=== PATIENT | male | born 1940 | race Two or more races ===

== ENCOUNTER 2019-01-20 06:18 | Inpatient (IN) | payer MEDICARE ==
--- NOTE | 2019-01-20 06:27 | ED ---
SOB HPI - General Chief Complaint: Shortness of Breath Stated Complaint: SOB Time Seen by Provider: 01/20/19 06:26 Source: patient Mode of arrival: ambulatory - History of Present Illness Initial Comments: Brian Hyatt is an 78-year-old gentleman with a history of congestive heart failure who recently had a right hip replacement with Dr. Nevarez. Patient reports that over the past couple of weeks he's noticed progressively worsening swelling of his lower extremities and worsening shortness of breath. Patient that his lower extremity edema was due to the recent history however when the left leg became swollen is the right he thought it may be related to something else. Patient reports that last night he was unable to sleep because he cannot lie flat at all which prompted him to come to the ER this morning for further evaluation. Patient denies any fevers chills, nausea, vomiting or sick contacts. He denies any cough. - Related Data Allergies Allergy/AdvReac Type Severity Reaction Status Date / Time No Known Allergies Allergy Verified 01/20/19 06:31 Review of Systems ROS Statement: Those systems with pertinent positive or pertinent negative responses have been documented in the HPI. ROS Other: All systems not noted in ROS Statement are negative. Past Medical History Past Medical History: Heart Failure, Hyperlipidemia, Hypertension Past Surgical History: Appendectomy, Cholecystectomy, Prostate Surgery Smoking Status: Former smoker Past Alcohol Use History: None Reported, Occasional Past Drug Use History: None Reported General Exam - General Exam Comments Initial Comments: Physical Exam GENERAL: Chronically ill appearing Appears pale HENT: Normocephalic, Atraumatic. Facial scars due to previous skin cancer EYES: PERRL, EOMI PULMONARY: Rales CARDIOVASCULAR: Bradycardic, regular JVD 3+ pitting edema bilateral lower extremities ABDOMEN: Hepatomegally, Soft and nontender with normal bowel sounds. SKIN: Skin is pale Senile purpura : Deferred NEUROLOGIC: Patient is alert and oriented x3. Moving all extremities spontaneously MUSCULOSKELETAL: Healing right hip Edema PSYCHIATRIC: Normal psychiatric evaluation Course Vital Signs 01/20/19 01/20/19 01/20/19 06:20 06:29 06:33 Temperature 97.5 F L Pulse Rate 52 L 57 L Respiratory 16 24 24 Rate Blood Pressure 178/91 177/101 O2 Sat by Pulse 97 94 L Oximetry Medical Decision Making - Medical Decision Making Patient was seen and evaluated, history was obtained from the patient and at bedside History and physical exam are concerning for congestive heart failure as the patient appears grossly fluid overloaded has bilateral lower extremity edema JVD and orthopnea Labs and imaging were ordered Chest x-ray with no pleural effusions but some pulmonary vascular congestion Labs with anemia this is likely related to the recent surgery Elevated kidney function no previous are available for comparison though the patient did note that he was changed from Lasix to Bumex orally due to kidney disease Troponin is very minimally elevated, BNP greater than 25,000 Patient care was discussed with admitting physician Dr. Cortés who agrees with plan for admission for congestive heart failure exacerbation, consult to cardiology. - Lab Data Result diagrams: 01/20/19 06:44 01/20/19 06:44 Lab Results 01/20/19 01/20/19 01/20/19 Range/Units 06:44 06:44 06:44 WBC 9.6 (3.8-10.6) k/uL RBC 3.73 L (4.30-5.90) m/uL Hgb 9.2 L (13.0-17.5) gm/dL Hct 30.0 L (39.0-53.0) % MCV 80.6 (80.0-100.0) fL MCH 24.7 L (25.0-35.0) pg MCHC 30.6 L (31.0-37.0) g/dL RDW 17.9 H (11.5-15.5) % Plt Count 270 (150-450) k/uL Neutrophils % 85 % Lymphocytes % 10 % Monocytes % 3 % Eosinophils % 0 % Basophils % 1 % Neutrophils # 8.1 H (1.3-7.7) k/uL Lymphocytes # 0.9 L (1.0-4.8) k/uL Monocytes # 0.3 (0-1.0) k/uL Eosinophils # 0.0 (0-0.7) k/uL Basophils # 0.1 (0-0.2) k/uL Hypochromasia Slight Anisocytosis Slight Microcytosis Slight PT (9.0-12.0) sec INR (<1.2) APTT (22.0-30.0) sec Sodium 142 (137-145) mmol/L Potassium 4.4 (3.5-5.1) mmol/L Chloride 110 H (98-107) mmol/L Carbon Dioxide 20 L (22-30) mmol/L Anion Gap 12 mmol/L BUN 37 H (9-20) mg/dL Creatinine 2.37 H (0.66-1.25) mg/dL Est GFR (CKD-EPI)AfAm 29 (>60 ml/min/1.73 sqM) Est GFR (CKD-EPI)NonAf 25 (>60 ml/min/1.73 sqM) Glucose 139 H (74-99) mg/dL Calcium 9.4 (8.4-10.2) mg/dL Magnesium 2.1 (1.6-2.3) mg/dL Total Bilirubin 0.6 (0.2-1.3) mg/dL AST 19 (17-59) U/L ALT 14 L (21-72) U/L Alkaline Phosphatase 123 (38-126) U/L Troponin I (0.000-0.034) ng/mL NT-Pro-B Natriuret Pep 92045 pg/mL Total Protein 6.6 (6.3-8.2) g/dL Albumin 3.6 (3.5-5.0) g/dL 01/20/19 01/20/19 Range/Units 06:44 06:44 WBC (3.8-10.6) k/uL RBC (4.30-5.90) m/uL Hgb (13.0-17.5) gm/dL Hct (39.0-53.0) % MCV (80.0-100.0) fL MCH (25.0-35.0) pg MCHC (31.0-37.0) g/dL RDW (11.5-15.5) % Plt Count (150-450) k/uL Neutrophils % % Lymphocytes % % Monocytes % % Eosinophils % % Basophils % % Neutrophils # (1.3-7.7) k/uL Lymphocytes # (1.0-4.8) k/uL Monocytes # (0-1.0) k/uL Eosinophils # (0-0.7) k/uL Basophils # (0-0.2) k/uL Hypochromasia Anisocytosis Microcytosis PT 10.9 (9.0-12.0) sec INR 1.0 (<1.2) APTT 24.5 (22.0-30.0) sec Sodium (137-145) mmol/L Potassium (3.5-5.1) mmol/L Chloride (98-107) mmol/L Carbon Dioxide (22-30) mmol/L Anion Gap mmol/L BUN (9-20) mg/dL Creatinine (0.66-1.25) mg/dL Est GFR (CKD-EPI)AfAm (>60 ml/min/1.73 sqM) Est GFR (CKD-EPI)NonAf (>60 ml/min/1.73 sqM) Glucose (74-99) mg/dL Calcium (8.4-10.2) mg/dL Magnesium (1.6-2.3) mg/dL Total Bilirubin (0.2-1.3) mg/dL AST (17-59) U/L ALT (21-72) U/L Alkaline Phosphatase (38-126) U/L Troponin I 0.052 H* (0.000-0.034) ng/mL NT-Pro-B Natriuret Pep pg/mL Total Protein (6.3-8.2) g/dL Albumin (3.5-5.0) g/dL Disposition Clinical Impression: Congestive heart failure, Anemia, Kidney disease Disposition: ADMITTED IP TO THIS [facility] Condition: Stable
[2019-01-20 07:09] LABS: Anisocytosis Slight; Basophils # (A) 0.1 k/uL (0-0.2); Basophils % (A) 1 %; Eosinophils % (A) 0 %; HGB 9.2 gm/dL (13.0-17.5); Hypochromasia Slight; Lymphocytes # (A) 0.9 k/uL (1.0-4.8); Lymphocytes % (A) 10 %; MCH 24.7 pg (25.0-35.0); MCHC 30.6 g/dL (31.0-37.0); MCV 80.6 fL (80.0-100.0); Microcytosis Slight; Monocytes # (A) 0.3 k/uL (0-1.0); Monocytes % (A) 3 %; Neutrophils # (A) 8.1 k/uL (1.3-7.7); Neutrophils % (A) 85 %; Partial Thromboplastin Time 24.5 sec (22.0-30.0); Platelet Count 270 k/uL (150-450); Prothrombin Time 10.9 sec (9.0-12.0); RBC 3.73 m/uL (4.30-5.90); RDW 17.9 % (11.5-15.5); WBC 9.6 k/uL (3.8-10.6)
--- NOTE | 2019-01-20 07:10 | XR ---
EXAMINATION TYPE: XR chest 2V DATE OF EXAM: 01/20/2019 COMPARISON: NONE HISTORY: Chest pain TECHNIQUE: Frontal and lateral views of the chest are obtained. FINDINGS: There are overlying cardiac leads. The aorta is dense and ectatic. Suspect coronary artery calcifications are present. Heart may be enlarged although patient is rotated. No evident pneumothora x or pleural effusion. Patchy subsegmental atelectatic changes or scarring suspected at the bases. IMPRESSION: Cardiomegaly, coronary artery disease. Probable subsegmental basilar atelectatic changes or scarring, pneumonia felt to be less likely. Consider follow-up. Rotated exam. Additional findings above.
[2019-01-20 07:20] LABS: Albumin 3.6 g/dL (3.5-5.0); Calcium 9.4 mg/dL (8.4-10.2); Magnesium 2.1 mg/dL (1.6-2.3); Potassium 4.4 mmol/L (3.5-5.1); Total Bilirubin 0.6 mg/dL (0.2-1.3); Total Protein 6.6 g/dL (6.3-8.2)
[2019-01-20] MEDS: FUROSEMIDE 10 MG/ML 4 ML VIAL IV SCH ×3 (08:00→22:56)
[2019-01-20] MEDS ORDERED: CARVEDILOL 12.5 MG TAB PO SCH (09:45)
[2019-01-20] MEDS ORDERED: NIFEdipine 10 MG CAP PO SCH (09:45)
[2019-01-20] MEDS ORDERED: LOSARTAN 50 MG TAB PO SCH (10:00)
[2019-01-20] MEDS ORDERED: TORSEMIDE 10 MG PO SCH (10:00)
[2019-01-20] MEDS: DOXAZOSIN 2 MG TAB PO SCH ×2 (10:37→21:17)
[2019-01-20] MEDS: FERROUS SULFATE 325 MG TAB PO SCH ×2 (10:38→20:21)
[2019-01-20] MEDS: CALCIUM POLYCARBOPHIL 625 MG TAB PO SCH (10:39)
[2019-01-20] MEDS: predniSONE 5 MG TAB PO SCH (10:39)
[2019-01-20] MEDS: MULTIVITAMINS, THERA 1 EACH TAB PO SCH (10:39)
[2019-01-20] MEDS: CHOLECALCIFEROL 1,000 UNIT TAB PO SCH (10:39)
[2019-01-20] MEDS: LACTOBACILLUS ACIDOPH & BULGAR 1 EACH PACKET PO SCH (10:41)
--- NOTE | 2019-01-20 11:12 | ECHOF ---
Referral Reason:CHF MEASUREMENTS -------- HEIGHT: 182.9 cm WEIGHT: 81.6 kg BP: 177/101 RVIDd: 4.4 cm (< 3.3) IVSd: 1.6 cm (0.6 - 1.1) LVIDd: 5.1 cm (3.9 - 5.3) LVPWd: 2.1 cm (0.6 - 1.1) IVSs: 2.3 cm LVIDs: 4.2 cm LVPWs: 1.9 cm LAESV Index (A-L): 47.58 ml/m Ao Diam: 2.6 cm (2.0 - 3.7) AV Cusp: 1.4 cm (1.5 - 2.6) LA Diam: 3.7 cm (2.7 - 3.8) MV EXCURSION: 22.495 mm (> 18.000) MV EF SLOPE: 148 mm/s (70 - 150) EPSS: 1.1 cm AV maxP.96 mmHg AV meanP.03 mmHg RAP: 20.00 mmHg RVSP: 105.34 mmHg FINDINGS -------- Resting bradycardia (HR<60bpm). This was a technically adequate study. The left ventricular size is normal. There is moderate concentric left ventricular hypertrophy. O verall left ventricular systolic function is moderately impaired with, an EF between 35 - 40 %. Lef t ventricular fillimg pressure cannot be estimated due to severe mitral regurgitation. The right ventricle is moderate to severely enlarged. LA is severely dilated >40 ml/m2 RA appears enlarged. Interatrial and interventricular septum intact. There is no evidence of aortic regurgitation. There is moderate aortic stenosis present. Peak/rafael n gradient across the Aortic Valve is 36.96mmHg / 18.03mmHg. Moderate mitral annular calcification present. Severe mitral regurgitation is present. Moderate tricuspid regurgitation present. There is severe pulmonary hypertension. The right ventr icular systolic pressure, as measured by Doppler, is 105.34mmHg. Trace/mild (physiologic) pulmonic regurgitation. The aortic root size is normal. The inferior vena cava is dilated with no significant inspiratory collapse which is consistent estima lindsay right atrial pressure of >20 mmHg. There is no pericardial effusion. CONCLUSIONS -------- 1. Resting bradycardia (HR<60bpm). 2. This was a technically adequate study. 3. The left ventricular size is normal. 4. There is moderate concentric left ventricular hypertrophy. 5. Overall left ventricular systolic function is moderately impaired with, an EF between 35 - 40 %. 6. Left ventricular fillimg pressure cannot be estimated due to severe mitral regurgitation. 7. The right ventricle is moderate to severely enlarged. 8. LA is severely dilated >40 ml/m2 9. RA appears enlarged. 10. Interatrial and interventricular septum intact. 11. There is no evidence of aortic regurgitation. 12. There is moderate aortic stenosis present. 13. Peak/mean gradient across the Aortic Valve is 36.96mmHg / 18.03mmHg. 14. Moderate mitral annular calcification present. 15. Severe mitral regurgitation is present. 16. Moderate tricuspid regurgitation present. 17. There is severe pulmonary hypertension. 18. The right ventricular systolic pressure, as measured by Doppler, is 105.34mmHg. 19. Trace/mild (physiologic) pulmonic regurgitation. 20. The aortic root size is normal. 21. The inferior vena cava is dilated with no significant inspiratory collapse which is consistent es timated right atrial pressure of >20 mmHg. 22. There is no pericardial effusion. POST OFFICE CLERK: Sara Gifford RDCS
[2019-01-20] MEDS: CALCIUM CARBONATE 500 MG CHEWABLE PO SCH (12:30)
[2019-01-20] MEDS ORDERED: ALBUTEROL NEBULIZED 2.5 MG/3 ML INHALATION PRN (13:16)
[2019-01-20] MEDS: ABIRATERONE ACETATE 1000 MG PO SCH (13:23)
[2019-01-20 14:14] VITALS: BMI 24.4
--- NOTE | 2019-01-20 14:30 | P.HPIM ---
History of Present Illness 78-year-old pleasant gentleman with known history of congestive heart failure patient present ejection fraction is a 35-40% came in with compensative soreness of breath orthopnea paroxysmal nocturnal dyspnea chest x-ray showed mild b ilateral pleural effusion no pulmonary edema patient does have pedal edema increased weight gain. Does have elevated JVD extending up to the years. She doesn't have any fever chills does have cough with clear sputum production. Patient does have chronic kidney disease stage IV as per the patient although I do not have any baseline creatinine available. Review of Systems REVIEW OF SYSTEMS: CONSTITUTIONAL: No fever, no malaise, no fatigue. HEENT: No recent visual problems or hearing problems. Denied any sore throat. CARDIOVASCULAR: No chest pain, no palpitations, no syncope. PULMONARY: no hemoptysis. GASTROINTESTINAL: No diarrhea, no nausea, no vomiting, no abdominal pain. NEUROLOGICAL: No headaches, no weakness, no numbness. HEMATOLOGICAL: Denies any bleeding or petechiae. GENITOURINARY: Denies any burning micturition, frequency, or urgency. MUSCULOSKELETAL/RHEUMATOLOGICAL: Denies any joint pain, swelling, or any muscle pain. ENDOCRINE: Denies any polyuria or polydipsia. The rest of the 14-point review of systems is negative. Past Medical History Past Medical History: Atrial Fibrillation, Cancer, Heart Failure, Hyperlipidemia, Hypertension, Osteoarthritis (OA), Renal Disease Additional Past Medical History / Comment(s): Prostate cancer with surgery and hormone based oral chemotherapy, bladder cancer with surgery/instillations, skin cancer with removals, leaky heart valve, CKD stage IV, arthritis in multiple joints, constipation, C-Diff in 06/18/18. History of Any Multi-Drug Resistant Organisms: None Reported Past Surgical History: Appendectomy, Cholecystectomy, Prostate Surgery Additional Past Surgical History / Comment(s): Total R hip 3 weeks ago, cysto with bladder tumor resections, prostatectomy, skin cancer removals-mostly basal cell, colonoscopy Past Anesthesia/Blood Transfusion Reactions: No Reported Reaction Smoking Status: Former smoker - Past Family History Mother Family Medical History: Dementia Father Family Medical History: Cancer Additional Family Medical History / Comment(s): Prostate cancer. Medications and Allergies Home Medications Medication Instructions Recorded Confirmed Type Abiraterone Acetate [Zytiga] 1,000 mg PO DAILY 01/20/19 01/20/19 History Albuterol Inhaler [Ventolin Hfa 1 - 2 puff INHALATION RT-Q6H PRN 01/20/19 01/20/19 History Inhaler] Calcium Carbonate [Calcium] 600 mg PO DAILY 01/20/19 01/20/19 History Calcium Polycarbophil [Fibercon] 625 mg PO DAILY 01/20/19 01/20/19 History Carvedilol [Coreg] 25 mg PO BID 01/20/19 01/20/19 History Cholecalciferol [Vitamin D3 (25 1,000 units PO DAILY 01/20/19 01/20/19 History Mcg = 1000 Iu)] Doxazosin [Cardura] 2 mg PO BID 01/20/19 01/20/19 History Ferrous Sulfate [Feosol] 325 mg PO BID 01/20/19 01/20/19 History L.acidoph,Paracasei, B.lactis 1 cap PO DAILY 01/20/19 01/20/19 History [Probiotic] Losartan Potassium 100 mg PO DAILY 01/20/19 01/20/19 History Multivitamins, Thera [Multivitamin 1 tab PO DAILY 01/20/19 01/20/19 History (formulary)] NIFEdipine [NIFEdipine ER] 30 mg PO DAILY 01/20/19 01/20/19 History Simvastatin [Zocor] 40 mg PO HS 01/20/19 01/20/19 History Torsemide 10 mg PO DAILY 01/20/19 01/20/19 History predniSONE 5 mg PO DAILY 01/20/19 01/20/19 History Allergies Allergy/AdvReac Type Severity Reaction Status Date / Time No Known Allergies Allergy Verified 01/20/19 08:01 Physical Exam Vitals: Vital Signs Temp Pulse Pulse Resp BP BP Pulse Ox 01/20/19 12:00 97.7 F 41 L 20 127/73 93 L 01/20/19 11:48 97.6 F 47 L 18 118/65 95 01/20/19 11:15 52 L 175/79 01/20/19 10:15 52 L 181/93 97 01/20/19 09:15 64 191/104 01/20/19 08:45 54 L 184/102 93 L 01/20/19 08:30 184/102 01/20/19 08:15 46 L 184/102 95 01/20/19 08:04 54 L 184/102 95 01/20/19 08:00 53 L 18 184/102 95 01/20/19 07:30 180/98 01/20/19 06:33 57 L 24 177/101 94 L 01/20/19 06:29 24 01/20/19 06:20 97.5 F L 52 L 16 178/91 97 Intake and Output 01/19/19 01/20/19 01/20/19 22:59 06:59 14:59 Intake Total 240 Balance 240 Intake: Oral 240 Other: Weight 81.647 kg 81.647 kg PHYSICAL EXAMINATION: GENERAL: The patient is alert and oriented x3, not in any acute distress. Well developed, well nourished. HEENT: Pupils are round and equally reacting to light. EOMI. No scleral icterus. No conjunctival pallor. Normocephalic, atraumatic. No pharyngeal erythema. No thyromegaly. CARDIOVASCULAR: S1 and S2 present. No murmurs, rubs, or gallops. Elevated JVD as mentioned above PULMONARY: Chest is clear to auscultation, no wheezing or crackles. ABDOMEN: Soft, nontender, nondistended, normoactive bowel sounds. No palpable organomegaly. MUSCULOSKELETAL: No joint swelling or deformity. EXTREMITIES: No cyanosis, clubbing, or lateral 2+ pitting pedal and when extending up to and above midshin area patient does have some chronic venous stasis dermatosis and venous insufficiency as well NEUROLOGICAL: Gross neurological examination did not reveal any focal deficits. SKIN: No rashes. Results CBC & Chem 7: 01/20/19 06:44 01/20/19 06:44 Labs: Abnormal Lab Results - Last 24 Hours (Table) 01/20/19 01/20/19 01/20/19 Range/Units 06:44 06:44 06:44 RBC 3.73 L (4.30-5.90) m/uL Hgb 9.2 L (13.0-17.5) gm/dL Hct 30.0 L (39.0-53.0) % MCH 24.7 L (25.0-35.0) pg MCHC 30.6 L (31.0-37.0) g/dL RDW 17.9 H (11.5-15.5) % Neutrophils # 8.1 H (1.3-7.7) k/uL Lymphocytes # 0.9 L (1.0-4.8) k/uL Chloride 110 H (98-107) mmol/L Carbon Dioxide 20 L (22-30) mmol/L BUN 37 H (9-20) mg/dL Creatinine 2.37 H (0.66-1.25) mg/dL Glucose 139 H (74-99) mg/dL ALT 14 L (21-72) U/L Troponin I 0.052 H* (0.000-0.034) ng/mL Thrombosis Risk Factor Assmnt - Choose All That Apply Any of the Below Risk Factors Present?: Yes Each Factor Represents 1 point: Heart failure (<1month) Other Risk Factors: Yes Each Risk Factor Represents 2 Points: Malignancy Each Risk Factor Represents 3 Points: Age 75 years or older Other congenital or acquired thrombophilia - If yes, enter type in comment: No Thrombosis Risk Factor Assessment Total Risk Factor Score: 6 Thrombosis Risk Factor Assessment Level: High Risk Assessment and Plan Plan: -Congestive heart failure chronic systolic dysfunction with acute exacerbation patient will be continued on now 40 every 8 hourly Lasix may need a higher dose of Lasix because his serum creatinine is 2. and patient does have stage IV chronic kidney disease. Losartan can be continued as his kidney dysfunction is chronic. Strict I's and O's, cardiology was consult and -Mildly elevated troponin will repeat 2 more trouble troponins patient doesn't have any chest pain EKG is not consistent with the any acute coronary event probably secondary to chronic kidney disease and congestive heart failure -Chronic kidney disease stage IV secondary to hypertensive nephrosclerosis I do not have his baseline creatinine as per the patient his kidney disease is stage IV -Atrial fibrillation presently bradycardic will hold off on beta alexis patient is not on anticoagulation patient probably had proximal A. fib a little cardiology evaluated and decide about anticoagulation -Benign prostatic hypertrophic -Hyperlipidemia DVT prophylaxis with subcutaneous heparin will not require pharmacologic GI prophylaxis
[2019-01-20] MEDS: HEPARIN SODIUM,PORCINE 5,000 UNIT/ML 1 ML VIAL SQ SCH (20:21)
[2019-01-20] MEDS: ATORVASTATIN 20 MG TAB PO SCH (20:21)
[2019-01-20] MEDS: MELATONIN 5 MG TABLET PO SCH (22:56)
[2019-01-21 06:20] LABS: Anisocytosis Slight; Basophils # (A) 0.1 k/uL (0-0.2); Basophils % (A) 2 %; Eosinophils # (A) 0.5 k/uL (0-0.7); Eosinophils % (A) 5 %; HCT 28.1 % (39.0-53.0); HGB 8.8 gm/dL (13.0-17.5); Hypochromasia Marked; Lymphocytes # (A) 1.5 k/uL (1.0-4.8); Lymphocytes % (A) 15 %; MCH 25.6 pg (25.0-35.0); MCHC 31.5 g/dL (31.0-37.0); MCV 81.1 fL (80.0-100.0); Mean Platelet Volume 7.6; Monocytes # (A) 0.5 k/uL (0-1.0); Monocytes % (A) 5 %; Neutrophils # (A) 6.8 k/uL (1.3-7.7); Neutrophils % (A) 72 %; Platelet Count 219 k/uL (150-450); RBC 3.46 m/uL (4.30-5.90); RDW 17.9 % (11.5-15.5); WBC 9.5 k/uL (3.8-10.6)
[2019-01-21 06:32] LABS: Calcium 9.3 mg/dL (8.4-10.2); Potassium 3.8 mmol/L (3.5-5.1)
[2019-01-21 06:37] LABS: Glucose,Whole Blood 123 mg/dL (75-99)
[2019-01-21] MEDS: DOXAZOSIN 2 MG TAB PO SCH ×2 (06:52→20:30)
--- NOTE | 2019-01-21 08:49 | P.CRDCN ---
History of Present Illness Consult date: 01/21/19 Requesting physician: Kelly Cortés Consult reason: congestive heart failure Chief complaint: Shortness of breath and bilateral leg swelling History of present illness: This is a pleasant 78-year-old gentleman with history of hypertension diabetes, hyperlipidemia, prior congestive heart failure, prostate cancer for which he is on oral chemo, patient recently underwent a right hip surgery by Dr. Nevarez. Over the past couple of weeks, patient states he's been progressively more short of breath, and over the past one and amount of bilateral peripheral edema. Positive orthopnea and PND. He does state that he has been told in the past to have had congestive cardiac failure, he states he was also told in the past that he had a weak heart muscle. Patient has recently moved to this area, patient has recently moved to this area, he was scheduled tomorrow as an outpatient over at cardiology. Chest x-ray shows cardiomegaly, coronary artery disease, subsegmental basilar atelectatic changes. EKG shows a sinus bradycardia with evidence of LVH strain pattern. Blood pressure on arrival 178/90 with a heart rate in the 50s, 97% on room air. Blood pressure this morning 192/96 in the left arm, 196/92 in the right arm, heart rate in the 60s, 96% on room air. White blood cell count 9.5, hemoglobin on arrival 9.2, 8.8 this morning, platelet count 219. Sodium 142, potassium 3.8, BUN 43 and creatinine 2.3, initial troponin 0.052, BNP level 25,100. The patient was initiated on IV Lasix on arrival here, he does state that he's been putting out adequate amounts of urine through the night last night. Echo cardiac gram with Doppler study was performed which revealed an ejection fraction of 35-40%, moderate aortic stenosis, severe mitral regurgitation. At the time of my e xamination this morning, patient does still feel short of breath, continues to have orthopnea and peripheral edema. Past Medical History Past Medical History: Atrial Fibrillation, Cancer, Heart Failure, Hyperlipidemia, Hypertension, Osteoarthritis (OA), Renal Disease Additional Past Medical History / Comment(s): Prostate cancer with surgery and hormone based oral chemotherapy, bladder cancer with surgery/instillations, skin cancer with removals, leaky heart valve, CKD stage IV, arthritis in multiple joints, constipation, C-Diff in 06/18/18. History of Any Multi-Drug Resistant Organisms: None Reported Past Surgical History: Appendectomy, Cholecystectomy, Prostate Surgery Additional Past Surgical History / Comment(s): Total R hip 3 weeks ago, cysto wi th bladder tumor resections, prostatectomy, skin cancer removals-mostly basal cell, colonoscopy Past Anesthesia/Blood Transfusion Reactions: No Reported Reaction Smoking Status: Former smoker - Past Family History Mother Family Medical History: Dementia Father Family Medical History: Cancer Additional Family Medical History / Comment(s): Prostate cancer. Medications and Allergies Home Medications Medication Instructions Recorded Confirmed Type Abiraterone Acetate [Zytiga] 1,000 mg PO DAILY 01/20/19 01/20/19 History Albuterol Inhaler [Ventolin Hfa 1 - 2 puff INHALATION RT-Q6H PRN 01/20/19 01/20/19 History Inhaler] Calcium Carbonate [Calcium] 600 mg PO DAILY 01/20/19 01/20/19 History Calcium Polycarbophil [Fibercon] 625 mg PO DAILY 01/20/19 01/20/19 History Carvedilol [Coreg] 25 mg PO BID 01/20/19 01/20/19 History Cholecalciferol [Vitamin D3 (25 1,000 units PO DAILY 01/20/19 01/20/19 History Mcg = 1000 Iu)] Doxazosin [Cardura] 2 mg PO BID 01/20/19 01/20/19 History Ferrous Sulfate [Feosol] 325 mg PO BID 01/20/19 01/20/19 History L.acidoph,Paracasei, B.lactis 1 cap PO DAILY 01/20/19 01/20/19 History [Probiotic] Losartan Potassium 100 mg PO DAILY 01/20/19 01/20/19 History Multivitamins, Thera [Multivitamin 1 tab PO DAILY 01/20/19 01/20/19 History (formulary)] NIFEdipine [NIFEdipine ER] 30 mg PO DAILY 01/20/19 01/20/19 History Simvastatin [Zocor] 40 mg PO HS 01/20/19 01/20/19 History Torsemide 10 mg PO DAILY 01/20/19 01/20/19 History predniSONE 5 mg PO DAILY 01/20/19 01/20/19 History Allergies Allergy/AdvReac Type Severity Reaction Status Date / Time No Known Allergies Allergy Verified 01/20/19 08:01 Physical Exam Vitals: Vital Signs Temp Pulse Pulse Pulse Resp BP BP 01/21/19 03:57 64 17 01/21/19 03:53 64 17 193/96 01/20/19 23:40 54 L 17 01/20/19 23:38 53 L 17 172/88 01/20/19 20:00 98.1 F 54 L 54 L 17 164/86 01/20/19 16:10 97.7 F 54 L 54 L 18 146/70 01/20/19 12:00 97.7 F 41 L 20 127/73 01/20/19 11:48 97.6 F 47 L 18 118/65 01/20/19 11:15 52 L 175/79 01/20/19 10:15 52 L 181/93 01/20/19 09:15 64 191/104 01/20/19 08:45 54 L 184/102 BP Pulse Ox 01/21/19 03:57 01/21/19 03:53 195/93 96 01/20/19 23:40 01/20/19 23:38 96 01/20/19 20:00 95 01/20/19 16:10 94 L 01/20/19 12:00 93 L 01/20/19 11:48 95 01/20/19 11:15 01/20/19 10:15 97 01/20/19 09:15 01/20/19 08:45 93 L Intake and Output 01/20/19 01/21/19 01/21/19 22:59 06:59 14:59 Intake Total 850 500 240 Output Total 200 550 Balance 850 300 -310 Intake: IV 10 Invasive Line 1 10 Oral 840 500 240 Output: Urine 200 550 Other: Voiding Method Toilet Toilet # Voids 1 3 1 Weight 81.8 kg PHYSICAL EXAMINATION: GENERAL: 78-year-old gentleman in no acute distress at the time of my examination HEENT: Head is atraumatic, normocephalic. Pupils equal, round. Sclera anicteric. Conjunctiva are clear. Mucous membranes of the mouth are moist. Neck is supple. There is elevated jugular venous pressure. No carotid bruit is heard. HEART EXAMINATION: Heart S1 S2 1 systolic ejection murmur is heard CHEST EXAMINATION: Lungs reveal diminished air entry to bilateral bases ABDOMEN: Soft, nontender. Bowel sounds are heard. No organomegaly noted. EXTREMITIES:[ 2+ peripheral pulses with 2+ evidence of peripheral edema NEUROLOGIC patient is awake, alert and oriented 3 . . Results 01/21/19 06:06 01/21/19 06:06 CBC 01/21/19 Range/Units 06:06 WBC 9.5 (3.8-10.6) k/uL RBC 3.46 L (4.30-5.90) m/uL Hgb 8.8 L (13.0-17.5) gm/dL Hct 28.1 L (39.0-53.0) % Plt Count 219 (150-450) k/uL Comprehensive Metabolic Panel 01/21/19 Range/Units 06:06 Sodium 142 (137-145) mmol/L Potassium 3.8 (3.5-5.1) mmol/L Chloride 107 (98-107) mmol/L Carbon Dioxide 27 (22-30) mmol/L BUN 43 H (9-20) mg/dL Creatinine 2.33 H (0.66-1.25) mg/dL Glucose 113 H (74-99) mg/dL Calcium 9.3 (8.4-10.2) mg/dL Current Medications Generic Name Dose Route Start Last Admin Trade Name Freq PRN Reason Stop Dose Admin Albuterol Sulfate 2.5 mg 01/20/19 13:16 Ventolin Nebulized INHALATION RT-Q6H PRN Shortness Of Breath Atorvastatin Calcium 20 mg 01/20/19 21:00 01/20/19 20:21 Lipitor PO 20 mg HS ROBYN Administration Calcium Carbonate/Glycine 500 mg 01/20/19 12:00 01/20/19 12:30 Tums PO 500 mg 1200 ROBYN Administration Calcium Polycarbophil 625 mg 01/20/19 10:00 01/20/19 10:39 Fibercon PO 625 mg DAILY ROBYN Administration Cholecalciferol 1,000 unit 01/20/19 10:00 01/20/19 10:39 Vitamin D3 (25 Mcg = 1000 Iu) PO 1,000 unit DAILY ROBYN Administration Doxazosin Mesylate 2 mg 01/20/19 09:45 01/21/19 06:52 Cardura PO 2 mg BID ROBYN Administration Ferrous Sulfate 325 mg 01/20/19 10:00 01/20/19 20:21 Feosol PO 325 mg BID ROBYN Administration Furosemide 40 mg 01/20/19 08:00 01/20/19 22:56 Lasix IV 40 mg Q8H ROBYN Administration Heparin Sodium (Porcine) 5,000 unit 01/20/19 21:00 01/20/19 20:21 Heparin SQ 5,000 unit Q12HR ROBYN Administration Lactobacillus Acidoph/Bulgaricus 1 each 01/20/19 10:00 01/20/19 10:41 Lactinex PO 1 each DAILY ROBYN Administration Losartan Potassium 100 mg 01/21/19 09:00 Cozaar PO DAILY ROBYN Melatonin 5 mg 01/20/19 23:00 01/20/19 22:56 Melatonin PO 5 mg HS ROBYN Administration Multivitamins 1 each 01/20/19 10:00 01/20/19 10:39 Theragran PO 1 each DAILY ROBYN Administration Nifedipine 30 mg 01/21/19 09:00 Procardia Xl PO DAILY ROBYN Patient's Own ( 1,000 mg 01/20/19 10:00 01/20/19 13:23 Abiraterone Acetate PO Not Given [Zytiga] 1,000 Mg) DAILY ROBYN Prednisone 5 mg 01/20/19 10:00 01/20/19 10:39 PO 5 mg DAILY ROBYN Administration Intake and Output 01/20/19 01/21/19 01/21/19 22:59 06:59 14:59 Intake Total 850 500 240 Output Total 200 550 Balance 850 300 -310 Intake: IV 10 Invasive Line 1 10 Oral 840 500 240 Output: Urine 200 550 Other: Voiding Method Toilet Toilet # Voids 1 3 1 Weight 81.8 kg 01/21/19 06:06 01/21/19 06:06 EKG Interpretations (text) EKG on arrival showed a sinus bradycardia with evidence of LVH strain pattern Assessment and Plan Plan: Assessment and plan #1 systolic congestive heart failure acute on chronic #2 accelerated hypertension #3 hyperlipidemia #4 diabetes #5 recent right hip surgery #6 prostate cancer, currently on oral chemotherapy #7 nonischemic cardiomyopathy with a documented ejection fraction of 35-40%, moderate aortic stenosis and severe mitral regurgitation #8 acute on chronic renal failure Plan We'll recommend to continue patient on IV Lasix 40 mg every 8 hourly, monitoring intake and output along with daily weights and daily lytes BUN and creatinine. We will resume the patient's Coreg which she was taking at home, increasing the dose to 50 mg twice a day more optimal blood pressure control, heart rate this morning is in the 60s, continue losartan, discontinue the Procardia secondary to cardiomyopathy. Further recommendations to follow. DNP note has been reviewed, I agree with a documented findings and plan of care. Patient was seen and examined.
[2019-01-21] MEDS: LACTOBACILLUS ACIDOPH & BULGAR 1 EACH PACKET PO SCH (08:59)
[2019-01-21] MEDS: CALCIUM POLYCARBOPHIL 625 MG TAB PO SCH (08:59)
[2019-01-21] MEDS: FUROSEMIDE 10 MG/ML 4 ML VIAL IV SCH ×3 (08:59→23:33)
[2019-01-21] MEDS: LOSARTAN 50 MG TAB PO SCH (08:59)
[2019-01-21] MEDS: HEPARIN SODIUM,PORCINE 5,000 UNIT/ML 1 ML VIAL SQ SCH ×2 (08:59→20:30)
[2019-01-21] MEDS: MULTIVITAMINS, THERA 1 EACH TAB PO SCH (09:00)
[2019-01-21] MEDS: CHOLECALCIFEROL 1,000 UNIT TAB PO SCH (09:00)
[2019-01-21] MEDS: FERROUS SULFATE 325 MG TAB PO SCH ×2 (09:00→20:30)
[2019-01-21] MEDS: predniSONE 5 MG TAB PO SCH (09:00)
[2019-01-21] MEDS ORDERED: NIFEdipine XL 30 MG TAB.ER.24 PO SCH (09:00)
[2019-01-21] MEDS: ABIRATERONE ACETATE 1000 MG PO SCH (09:01)
[2019-01-21] MEDS: CALCIUM CARBONATE 500 MG CHEWABLE PO SCH (11:22)
[2019-01-21] MEDS ORDERED: hydrALAZINE HCL 20 MG/ML 1 ML VIAL IVP PRN (13:36)
--- NOTE | 2019-01-21 13:36 | P.NPCON ---
History of Present Illness - Reason for Consult acute renal failure - History of Present Illness Reason for consultation: Acute kidney injury History of present illness: Patient is a 78-year-old male seen in renal consultation for acute kidney injury. Patient creatinine was 2.37 on admission and is stable at 2.33 today. Patient recently had right hip replacement done about 4 weeks ago. Subsequently patient started developing edema in his lower extremities as well as shortness of breath. He is currently maintained on Lasix 40 mg IV 3 times daily. He admits to good urine output. Edema and shortness of breath both improving. Echocardiogram revealed ejection fraction of 35-40% with moderate aortic stenosis and tricuspid regurgitation. He is also noted to have severe mitral regurgitation and severe pulmonary hypertension. No vomiting or diarrhea. Denies regular use of nonsteroidals. No history of diabetes. No family history of renal disease. No hematuria or dysuria. No abdominal pain. Oral intake is fair. Vital signs are stable. General: The patient appeared well nourished and normally developed. HEENT: Head exam is unremarkable. Neck is without jugular venous distension. LUNGS: Lungs are clear to auscultation and percussion. Breath sounds decreased. HEART: Rate and Rhythm are regular. First and second heart sounds normal. No murmurs, rubs or gallops. ABDOMEN: Abdominal exam reveals normal bowel sounds. Non-tender and non- distended. No evidence of peritonitis. EXTREMITITES: 1+ edema. Past Medical History Past Medical History: Atrial Fibrillation, Cancer, Heart Failure, Hyperlipidemia, Hypertension, Osteoarthritis (OA), Renal Disease Additional Past Medical History / Comment(s): Prostate cancer with surgery and hormone based oral chemotherapy, bladder cancer with surgery/instillations, skin cancer with removals, leaky heart valve, CKD stage IV, arthritis in multiple joints, constipation, C-Diff in 06/18/18. History of Any Multi-Drug Resistant Organisms: None Reported Past Surgical History: Appendectomy, Cholecystectomy, Prostate Surgery Additional Past Surgical History / Comment(s): Total R hip 3 weeks ago, cysto wi th bladder tumor resections, prostatectomy, skin cancer removals-mostly basal cell, colonoscopy Past Anesthesia/Blood Transfusion Reactions: No Reported Reaction Smoking Status: Former smoker - Past Family History Mother Family Medical History: Dementia Father Family Medical History: Cancer Additional Family Medical History / Comment(s): Prostate cancer. Medications and Allergies Home Medications Medication Instructions Recorded Confirmed Type Abiraterone Acetate [Zytiga] 1,000 mg PO DAILY 01/20/19 01/20/19 History Albuterol Inhaler [Ventolin Hfa 1 - 2 puff INHALATION RT-Q6H PRN 01/20/19 01/20/19 History Inhaler] Calcium Carbonate [Calcium] 600 mg PO DAILY 01/20/19 01/20/19 History Calcium Polycarbophil [Fibercon] 625 mg PO DAILY 01/20/19 01/20/19 History Carvedilol [Coreg] 25 mg PO BID 01/20/19 01/20/19 History Cholecalciferol [Vitamin D3 (25 1,000 units PO DAILY 01/20/19 01/20/19 History Mcg = 1000 Iu)] Doxazosin [Cardura] 2 mg PO BID 01/20/19 01/20/19 History Ferrous Sulfate [Feosol] 325 mg PO BID 01/20/19 01/20/19 History L.acidoph,Paracasei, B.lactis 1 cap PO DAILY 01/20/19 01/20/19 History [Probiotic] Losartan Potassium 100 mg PO DAILY 01/20/19 01/20/19 History Multivitamins, Thera [Multivitamin 1 tab PO DAILY 01/20/19 01/20/19 History (formulary)] NIFEdipine [NIFEdipine ER] 30 mg PO DAILY 01/20/19 01/20/19 History Simvastatin [Zocor] 40 mg PO HS 01/20/19 01/20/19 History Torsemide 10 mg PO DAILY 01/20/19 01/20/19 History predniSONE 5 mg PO DAILY 01/20/19 01/20/19 History Allergies Allergy/AdvReac Type Severity Reaction Status Date / Time No Known Allergies Allergy Verified 01/20/19 08:01 Physical Exam Vitals: Vital Signs Temp Pulse Pulse Resp BP BP Pulse Ox 01/21/19 11:10 18 01/21/19 08:05 98.4 F 54 L 18 188/91 95 01/21/19 03:57 64 17 01/21/19 03:53 64 17 193/96 195/93 96 01/20/19 23:40 54 L 17 01/20/19 23:38 53 L 17 172/88 96 01/20/19 20:00 98.1 F 54 L 54 L 17 164/86 95 01/20/19 16:10 97.7 F 54 L 54 L 18 146/70 94 L Intake and Output 01/20/19 01/21/19 01/21/19 22:59 06:59 14:59 Intake Total 850 500 240 Output Total 200 550 Balance 850 300 -310 Intake: IV 10 Invasive Line 1 10 Oral 840 500 240 Output: Urine 200 550 Other: Voiding Method Toilet Toilet # Voids 1 3 1 Weight 81.8 kg Results - Lab Results Most recent lab results Calcium 9.3 mg/dL (8.4-10.2) 01/21/19 06:06 Magnesium 2.1 mg/dL (1.6-2.3) 01/20/19 06:44 01/21/19 06:06 01/21/19 06:06 Assessment and Plan Plan: Assessment: 1. CONCHIS, mostly prerenal, secondary to cardiorenal syndrome. Cr 2.37 on admission - 2.33 today. Unknown baseline renal function. 2. Rule out CKD. 3. Dyspnea secondary to volume overload. 4. Systolic CHF with EF 35-40%, moderate and TR, severe MR and pulmonary HTN. 5. Metabolic acidosis due to CONCHIS. Better. 6. S/p right hip repair december 2018. 7. Benign HTN. Plan: Continue lasix 40 mg IV TID. Low salt diet. Check UA. Check renal uls. Repeat electrolytes in AM. Thank you for the consultation. I will continue to follow the patient with you during his hospital stay.
[2019-01-21] MEDS: CARVEDILOL 12.5 MG TAB PO SCH (16:11)
--- NOTE | 2019-01-21 16:37 | P.PN ---
Subjective Progress Note Date: 01/21/19 Principal diagnosis: This is an 78-year-old male with a known history of heart failure being admitted for congestive heart failure exacerbation and shortness of breath. Patient is sitting up in the recliner in no acute distress. Cardiology and nephrology are following. Patient states that he does not have any chest pain, palpitations, or any increase in shortness of breath at this time. Patient states that he has improved from yesterday but still having some mild shortness of breath with exertion. Patient will be closely monitored. 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 A nephrology consult was placed. Objective - Vital Signs Vital signs: Vital Signs Temp 98.4 F 01/21/19 08:05 Pulse 54 L 01/21/19 08:05 Resp 18 01/21/19 11:10 BP 188/91 01/21/19 08:05 Pulse Ox 95 01/21/19 08:05 Intake & Output 01/20/19 01/21/19 01/21/19 18:59 06:59 18:59 Intake Total 1080 510 360 Output Total 200 550 Balance 1080 310 -190 Weight 81.647 kg 81.8 kg Intake: IV 10 Invasive Line 1 10 Oral 1080 500 360 Output: Urine 200 550 Other: Voiding Method Toilet # Voids 1 3 200 # Bowel Movements 0 - Exam Gen: This is a 78-year-old male sitting up in recliner in no acute distress. HEENT: Head is atraumatic, normocephalic. Pupils equal, round. Sclerae is anicteric. NECK: Supple. JVD is noted. No lymphadenopathy. No thyromegaly. LUNGS: Clear to auscultation. No wheezes or rhonchi. No intercostal retractions. HEART: Regular rate and rhythm. No murmur. ABDOMEN: Soft. Bowel sounds are present. No masses. No tenderness. EXTREMITIES: mild 2+ pedal edema. No calf tenderness. NEUROLOGICAL: Patient is awake, alert and oriented x3. Cranial nerves 2 through 12 are grossly intact. Gait is steady - Labs CBC & Chem 7: 01/21/19 06:06 01/21/19 06:06 Labs: Abnormal Lab Results - Last 24 Hours (Table) 07/01/21/19 01/21/19 Range/Units 06:06 06:06 06:36 RBC 3.46 L (4.30-5.90) m/uL Hgb 8.8 L (13.0-17.5) gm/dL Hct 28.1 L (39.0-53.0) % RDW 17.9 H (11.5-15.5) % BUN 43 H (9-20) mg/dL Creatinine 2.33 H (0.66-1.25) mg/dL Glucose 113 H (74-99) mg/dL POC Glucose (mg/dL) 123 H (75-99) mg/dL Assessment and Plan Assessment: Congestive heart failure chronic systolic dysfunction with acute exacerbation. Patient is currently to continue on IV Lasix 40 mg every 8 hours. May need to adjust will continue to monitor lab values and vital signs closely. Stage IV chronic kidney disease. Losartan currently continued, Procardia discontinued due to his cardiomyopathy, resume Coreg at 50 mg twice daily per cardiology. Cardiology is following Mildly elevated troponin 0.052. Patient denies having any chest pain. EKG is not consistent with any acute coronary event. Most likely secondary to chronic kidney disease and congestive heart failure Chronic kidney disease stage IV secondary to hypertensive nephrosclerosis. Current creatinine is 2.33. we will continue to monitor closely. atrial fibrillation: Patient was bradycardic. Patient was not on any anticoagulation. Cardiology is following. Benign prostatic hypertrophy Hyperlipidemia DVT prophylaxis with heparin subq Recommendations and discussion Recommend to continue current medications, continue symptomatic treatment. Awaiting nephrology consult at this time. Cardiology is following closely. Will closely monitor vital signs and labs. Prognosis is guarded. Further recommendations to follow.
--- NOTE | 2019-01-21 16:42 | US ---
EXAMINATION TYPE: US kidneys/renal and bladder DATE OF EXAM: 01/21/2019 COMPARISON: NONE CLINICAL HISTORY: trever. Stage 4 kidney disease EXAM MEASUREMENTS: Right Kidney: 9.1 x 4.8 x 5.4 cm Left Kidney: 10.1 x 4.8 x 4.0 cm Right Kidney: Cystic area upper pole .8 x .7 x .9 cm. Left Kidney: Cystic area upper pole 1.9 x 1.6 x 1.8 cm Bladder: Anechoic Bilateral Jets seen: Just left seen. There is no evidence for hydronephrosis at this point in time. No nephrolithiasis is seen. The urin manpreet bladder is anechoic. Left ureteral jets are seen. IMPRESSION: No ureteral jets seen on the right side. No hydronephrosis seen. Bilateral simple renal c ortical cysts.
[2019-01-21 20:30] LABS: Appearance,Urine Clear (Clear); Bilirubin,Urine Negative (Negative); Blood,Urine Negative (Negative); Color,Urine Light Yellow; Glucose,Urine (UA) Negative (Negative); Ketones,Urine Negative (Negative); Leukocyte Esterase,Urine Negative (Negative); Mucus,Urine Rare /hpf; Nitrite,Urine Negative (Negative); PH, Urine 5.5 (5.0-8.0); Protein,Urine 1+ (Negative); RBC,Urine <1 /hpf (0-5); Specific Gravity,Urine 1.007 (1.001-1.035); Urobilinogen,Urine <2.0 mg/dL (<2.0)
[2019-01-21] MEDS: ATORVASTATIN 20 MG TAB PO SCH (20:30)
[2019-01-21] MEDS: MELATONIN 5 MG TABLET PO SCH (23:33)
[2019-01-22] MEDS: CARVEDILOL 12.5 MG TAB PO SCH ×2 (06:12→17:34)
[2019-01-22 06:53] LABS: Calcium 9.3 mg/dL (8.4-10.2); Magnesium 1.9 mg/dL (1.6-2.3); Potassium 3.3 mmol/L (3.5-5.1)
[2019-01-22] MEDS: LACTOBACILLUS ACIDOPH & BULGAR 1 EACH PACKET PO SCH (09:28)
[2019-01-22] MEDS: MULTIVITAMINS, THERA 1 EACH TAB PO SCH (09:28)
[2019-01-22] MEDS: LOSARTAN 50 MG TAB PO SCH (09:28)
[2019-01-22] MEDS: CHOLECALCIFEROL 1,000 UNIT TAB PO SCH (09:28)
[2019-01-22] MEDS: FERROUS SULFATE 325 MG TAB PO SCH ×2 (09:28→21:05)
[2019-01-22] MEDS: predniSONE 5 MG TAB PO SCH (09:29)
[2019-01-22] MEDS: CALCIUM POLYCARBOPHIL 625 MG TAB PO SCH (09:29)
[2019-01-22] MEDS: DOXAZOSIN 2 MG TAB PO SCH ×2 (09:29→21:05)
[2019-01-22] MEDS: HEPARIN SODIUM,PORCINE 5,000 UNIT/ML 1 ML VIAL SQ SCH ×2 (09:29→21:06)
[2019-01-22] MEDS: FUROSEMIDE 10 MG/ML 4 ML VIAL IV SCH (09:29)
[2019-01-22] MEDS: ABIRATERONE ACETATE 1000 MG PO SCH (09:30)
[2019-01-22] MEDS ORDERED: POTASSIUM CHLORIDE ER 20 MEQ TAB.ER PO STA (10:32)
--- NOTE | 2019-01-22 11:03 | P.PN ---
Subjective Patient is seen in follow-up for acute kidney injury. Renal function is better today. Creatinine 2.1. Edema is improving. Maintain on Lasix 40 mg IV 3 times a day. No chest pain. Oral intake is fair. Vital signs are stable. General: The patient appeared well nourished and normally developed. HEENT: Head exam is unremarkable. Neck is without jugular venous distension. LUNGS: Lungs are clear to auscultation and percussion. Breath sounds decreased. HEART: Rate and Rhythm are regular. First and second heart sounds normal. No murmurs, rubs or gallops. ABDOMEN: Abdominal exam reveals normal bowel sounds. Non-tender and non- distended. No evidence of peritonitis. EXTREMITITES: 1+ edema. Objective - Vital Signs Vital signs: Vital Signs Temp 97.7 F 01/22/19 08:00 Pulse 97 01/22/19 08:00 Resp 18 01/22/19 08:00 BP 179/78 01/22/19 08:00 Pulse Ox 97 01/22/19 08:00 Intake & Output 01/21/19 01/22/19 01/22/19 18:59 06:59 18:59 Intake Total 600 240 Output Total 550 1775 300 Balance 50 -1775 -60 Weight 78.7 kg Intake: Oral 600 240 Output: Urine 550 1775 300 Other: Voiding Method Toilet Toilet Urinal # Voids 200 # Bowel Movements 0 - Labs CBC & Chem 7: 01/21/19 06:06 01/22/19 06:10 Labs: Abnormal Lab Results - Last 24 Hours (Table) 01/21/19 01/22/19 Range/Units 20:00 06:10 Potassium 3.3 L (3.5-5.1) mmol/L BUN 42 H (9-20) mg/dL Creatinine 2.10 H (0.66-1.25) mg/dL Glucose 106 H (74-99) mg/dL Urine Protein 1+ H (Negative) Urine Mucus Rare H (None) /hpf Assessment and Plan Plan: Assessment: 1. CONCHIS, mostly prerenal, secondary to cardiorenal syndrome. Cr 2.37 on admission - 2.1 today. Unknown baseline renal function. No evidence of hydronephrosis noted on kidney ultrasound. 2. Rule out CKD. 3. Dyspnea secondary to volume overload. 4. Systolic CHF with EF 35-40%, moderate and TR, severe MR and pulmonary HTN. 5. Metabolic acidosis due to CONCHIS. Better. 6. S/p right hip repair december 2018. 7. Benign HTN. Blood pressures high. Plan: Continue lasix 40 mg IV TID. Low salt diet. Add hydralazine. Repeat electrolytes in the morning.
--- NOTE | 2019-01-22 12:45 | P.PN ---
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 The patient presents to the hospital on this occasion with symptoms of difficulty in breathing. Chest x-ray did not reveal any acute changes, CT of the chest was also performed which did not reveal evidence of pulmonary embolism and did however reveal 3 right lower lobe pulmonary nodules measuring up to 8.2 mm. EKG on arrival here showed atrial flutter with a rapid ventricular response, patient was given adenosine in the emergency room with no results, he was then initiated on a Cardizem drip. His heart rate this morning is in the 120 range. Blood pressure 113/60, heart rate in the 120s this morning, 91% on 5 L of oxygen. White blood cell count 6.6, hemoglobin 11.3, platelet count 271, d-dimer 1.03, sodium 142, potassium 4.3, BUN 21 and creatinine 0.9. Troponins negative 3, BNP [id number]. At the time of my examination this morning, the patient is complaining of persistently feeling quite short of breath. He is on 5 L of oxygen, satting 91%. 01/22/2019 Patient was seen and examined this morning, overall he is feeling better but still complains of some shortness of breath, continues to have bilateral crackles, edema is improving. I pressure 150/70 with a heart rate in the 50s, 99% on room air. Sodium 140, potassium 3.3, BUN 42 and creatinine 2.1. Objective - Vital Signs Vital signs: Vital Signs Temp 97.7 F 01/22/19 08:00 Pulse 97 01/22/19 12:00 Resp 18 01/22/19 12:00 BP 179/78 01/22/19 08:00 Pulse Ox 97 01/22/19 08:00 Intake & Output 01/21/19 01/22/19 01/22/19 18:59 06:59 18:59 Intake Total 600 240 Output Total 550 1775 300 Balance 50 -1775 -60 Weight 78.7 kg Intake: Oral 600 240 Output: Urine 550 1775 300 Other: Voiding Method Toilet Toilet Urinal # Voids 200 # Bowel Movements 0 - Exam PHYSICAL EXAMINATION: GENERAL: 78-year-old gentleman in no acute distress at the time of my examination HEENT: Head is atraumatic, normocephalic. Pupils equal, round. Sclera anicteric. Conjunctiva are clear. Mucous membranes of the mouth are moist. Neck is supple. There is elevated jugular venous pressure. No carotid bruit is heard. HEART EXAMINATION: Heart S1 S2 1 systolic ejection murmur is heard CHEST EXAMINATION: Lungs reveal improvement in air entry to the bases with bilateral crackles heard ABDOMEN: Soft, nontender. Bowel sounds are heard. No organomegaly noted. EXTREMITIES:[ 2+ peripheral pulses with trace to 1+ evidence of peripheral edema NEUROLOGIC patient is awake, alert and oriented 3 . . - Labs CBC & Chem 7: 01/21/19 06:06 01/22/19 06:10 Labs: Abnormal Lab Results - Last 24 Hours (Table) 01/21/19 01/22/19 Range/Units 20:00 06:10 Potassium 3.3 L (3.5-5.1) mmol/L BUN 42 H (9-20) mg/dL Creatinine 2.10 H (0.66-1.25) mg/dL Glucose 106 H (74-99) mg/dL Urine Protein 1+ H (Negative) Urine Mucus Rare H (None) /hpf Assessment and Plan Plan: Assessment and plan #1 systolic congestive heart failure acute on chronic #2 accelerated hypertension #3 hyperlipidemia #4 diabetes #5 recent right hip surgery #6 prostate cancer, currently on oral chemotherapy #7 nonischemic cardiomyopathy with a documented ejection fraction of 35-40%, moderate aortic stenosis and severe mitral regurgitation #8 acute on chronic renal failure Plan We will decrease the IV Lasix to 40 mg twice a day today, add Aldactone to the medication continue to monitor intake and output along with daily weights and daily lytes BUN and creatinine. DNP note has been reviewed, I agree with a documented findings and plan of care. Patient was seen and examined.
[2019-01-22] MEDS: CALCIUM CARBONATE 500 MG CHEWABLE PO SCH (12:56)
[2019-01-22] MEDS: hydrALAZINE HCL 25 MG TAB PO SCH ×2 (12:56→21:05)
--- NOTE | 2019-01-22 16:48 | P.PN ---
Subjective Progress Note Date: 01/22/19 Principal diagnosis: This is an 78-year-old male with a known history of heart failure being admitted for congestive heart failure exacerbation and shortness of breath. Patient is sitting up in the recliner in no acute distress. Cardiology and nephrology are following. Patient states that he does not have any chest pain, palpitations, or any increase in shortness of breath at this time. Patient states that he has improved from yesterday but still having some mild shortness of breath with exertion. Patient will be closely monitored. 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 A nephrology consult was placed. 01/22/2019 Patient is lying in bed resting but easily arousable. Patient is a very pleasant 78-year-old male that was recently admitted for shortness of breath with CHF exacerbation. Patient denies any new shortness of breath, chest pain, palpitations at this time. Remains afebrile. Patient states that his shortness of breath has improved slightly and remains on room air at this time. Patient denies any nausea or vomiting. Patient states that he is urinating often. Patient does have some lower extremity edema but he states is improving. Cardiology and nephrology are following the patient. We'll continue to monitor closely. Objective - Vital Signs Vital signs: Vital Signs Temp 97.7 F 01/22/19 12:00 Pulse 42 L 01/22/19 12:00 Resp 16 01/22/19 15:44 BP 172/79 01/22/19 12:00 Pulse Ox 96 01/22/19 12:00 Intake & Output 01/21/19 01/22/19 01/22/19 18:59 06:59 18:59 Intake Total 600 480 Output Total 550 1775 1100 Balance 50 1775 -620 Weight 78.7 kg Intake: Oral 600 480 Output: Urine 550 1775 1100 Other: Voiding Method Toilet Toilet Urinal # Voids 200 # Bowel Movements 0 0 - Exam Gen: This is a 78-year-old male lying in bed in no acute distress. HEENT: Head is atraumatic, normocephalic. Pupils equal, round. Sclerae is anicteric. NECK: Supple. JVD is noted. No lymphadenopathy. No thyromegaly. LUNGS: Clear to auscultation. No wheezes or rhonchi. Mild crackles heard at the bases. No intercostal retractions. HEART: Regular rate and rhythm. No murmur. ABDOMEN: Soft. Bowel sounds are present. No masses. No tenderness. EXTREMITIES: mild 2+ pedal edema. No calf tenderness. NEUROLOGICAL: Patient is awake, alert and oriented x3. Cranial nerves 2 through 12 are grossly intact. Gait is steady - Labs CBC & Chem 7: 01/21/19 06:06 01/22/19 06:10 Labs: Abnormal Lab Results - Last 24 Hours (Table) 01/21/19 01/22/19 Range/Units 20:00 06:10 Potassium 3.3 L (3.5-5.1) mmol/L BUN 42 H (9-20) mg/dL Creatinine 2.10 H (0.66-1.25) mg/dL Glucose 106 H (74-99) mg/dL Urine Protein 1+ H (Negative) Urine Mucus Rare H (None) /hpf Assessment and Plan Assessment: Congestive heart failure chronic systolic dysfunction with acute exacerbation. Patient is currently to continue on IV Lasix 40 mg twice daily per cardiology. Aldactone will be added. May need to adjust will continue to monitor lab values and vital signs closely. Stage IV chronic kidney disease. Losartan currently continued, Procardia discontinued due to his cardiomyopathy, resume Coreg at 50 mg twice daily per cardiology. Cardiology is following Mildly elevated troponin 0.052. Patient denies having any chest pain. EKG is not consistent with any acute coronary event. Most likely secondary to chronic kidney disease and congestive heart failure Chronic kidney disease stage IV secondary to hypertensive nephrosclerosis. Current creatinine is 2.10. we will continue to monitor closely. atrial fibrillation: Patient was bradycardic. Patient was not on any anticoagulation. Cardiology is following. Benign prostatic hypertrophy Hyperlipidemia DVT prophylaxis with heparin subq Recommendations and discussion Recommend to continue current medications, continue symptomatic treatment. Nephrology and Cardiology are following closely. Will closely monitor vital signs and labs. Prognosis is guarded. Further recommendations to follow. Possible discharge in 24-48 hours. Home care is being arranged case management.
[2019-01-22] MEDS ORDERED: FUROSEMIDE 10 MG/ML 4 ML VIAL IV SCH (21:00)
[2019-01-22] MEDS: ATORVASTATIN 20 MG TAB PO SCH (21:05)
[2019-01-22] MEDS: MELATONIN 5 MG TABLET PO SCH (21:05)
[2019-01-23 07:29] LABS: Calcium 9.5 mg/dL (8.4-10.2); Magnesium 1.9 mg/dL (1.6-2.3); Potassium 3.3 mmol/L (3.5-5.1)
[2019-01-23] MEDS ORDERED: POTASSIUM CHLORIDE ER 20 MEQ TAB.ER PO STA (08:10)
--- NOTE | 2019-01-23 08:11 | P.PN ---
Subjective Patient is seen in follow-up for acute kidney injury. Renal function is slightly worse which is due to diuresis. Creatinine 2.3. Edema is improving. Maintain on Lasix 40 mg IV 2 times a day. No chest pain. Oral intake is fair. Vital signs are stable. General: The patient appeared well nourished and normally developed. HEENT: Head exam is unremarkable. Neck is without jugular venous distension. LUNGS: Lungs are clear to auscultation and percussion. Breath sounds decreased. HEART: Rate and Rhythm are regular. First and second heart sounds normal. No murmurs, rubs or gallops. ABDOMEN: Abdominal exam reveals normal bowel sounds. Non-tender and non- distended. No evidence of peritonitis. EXTREMITITES: Trace edema. Objective - Vital Signs Vital signs: Vital Signs Temp 97.9 F 01/23/19 05:36 Pulse 48 L 01/23/19 05:36 Resp 16 01/23/19 05:36 BP 153/72 01/23/19 05:36 Pulse Ox 94 L 01/23/19 05:36 Intake & Output 01/22/19 01/23/19 01/23/19 18:59 06:59 18:59 Intake Total 720 Output Total 1100 2100 Balance -380 -2100 Weight 77.2 kg Intake: Oral 720 Output: Urine 1100 2100 Other: Voiding Method Toilet Toilet Urinal Urinal # Voids 2 # Bowel Movements 0 - Labs CBC & Chem 7: 01/21/19 06:06 01/23/19 06:14 Labs: Abnormal Lab Results - Last 24 Hours (Table) 01/23/19 Range/Units 06:14 Potassium 3.3 L (3.5-5.1) mmol/L Carbon Dioxide 31 H (22-30) mmol/L BUN 45 H (9-20) mg/dL Creatinine 2.30 H (0.66-1.25) mg/dL Glucose 101 H (74-99) mg/dL Assessment and Plan Plan: Assessment: 1. CONCHIS, mostly prerenal, secondary to cardiorenal syndrome. Cr 2.37 on admission - 2.3 today. Unknown baseline renal function. No evidence of hydronephrosis noted on kidney ultrasound. 2. Rule out CKD. 3. Dyspnea secondary to volume overload. 4. Systolic CHF with EF 35-40%, moderate and TR, severe MR and pulmonary HTN. 5. Metabolic acidosis due to CONCHIS. Resolved. 6. S/p right hip repair december 2018. 7. Benign HTN. Better. 8. Hypokalemia secondary to diuresis. The kidneys are normal. Plan: I will change Lasix to 40 mg orally twice daily. Replace potassium. 40 mEq today. Admit maintenance potassium supplementation of 20 mEq daily. Low salt diet. Maintain current antihypertensives. Anticipate discharge soon. Repeat blood work including BMP and magnesium level in 2-3 days postdischarge and follow up outpatient in the next 1-2 weeks.
[2019-01-23] MEDS: CALCIUM POLYCARBOPHIL 625 MG TAB PO SCH (08:41)
[2019-01-23] MEDS: CARVEDILOL 12.5 MG TAB PO SCH (08:41)
[2019-01-23] MEDS: DOXAZOSIN 2 MG TAB PO SCH (08:42)
[2019-01-23] MEDS: ABIRATERONE ACETATE 1000 MG PO SCH (08:42)
[2019-01-23] MEDS: HEPARIN SODIUM,PORCINE 5,000 UNIT/ML 1 ML VIAL SQ SCH (08:42)
[2019-01-23] MEDS: FERROUS SULFATE 325 MG TAB PO SCH (08:42)
[2019-01-23] MEDS: predniSONE 5 MG TAB PO SCH (08:42)
[2019-01-23] MEDS: CHOLECALCIFEROL 1,000 UNIT TAB PO SCH (08:42)
[2019-01-23] MEDS: MULTIVITAMINS, THERA 1 EACH TAB PO SCH (08:42)
[2019-01-23] MEDS ORDERED: SPIRONOLACTONE 25 MG TAB PO SCH (09:00)
[2019-01-23] MEDS ORDERED: FUROSEMIDE 40 MG TAB PO SCH (09:00)
[2019-01-23] MEDS: hydrALAZINE HCL 25 MG TAB PO SCH (09:14)
[2019-01-23] MEDS: LOSARTAN 50 MG TAB PO SCH (09:15)
[2019-01-23] MEDS: LACTOBACILLUS ACIDOPH & BULGAR 1 EACH PACKET PO SCH (09:15)
[2019-01-23] MEDS: CALCIUM CARBONATE 500 MG CHEWABLE PO SCH (09:15)
[2019-01-23 09:30] VITALS: BP 143/63; PULSE 54; RESP 20; TEMP 98.3
--- NOTE | 2019-01-23 13:46 | P.DS ---
Providers Date of admission: 01/20/19 07:22 Expected date of discharge: 01/23/19 Attending physician: Kelly Cortés Consults: 01/20/19 07:22 Consult Physician Routine Consulting Provider: Semaj Thomas Consult Reason/Comments: heart failure Do you want consulting provider notified?: Yes, Notify in am 01/21/19 09:55 Consult Physician Routine Consulting Provider: Ann Camacho Consult Reason/Comments: chronic kidney disease Do you want consulting provider notified?: Yes, Notify in am Primary care physician: Stated None Hospital Course: Final diagnosis Congestive heart failure with chronic systolic dysfunction with acute exacerbation Stage IV chronic kidney disease Mildly elevated troponin 0.052 Hypertensive nephroslerosis Atrial fibrillation Benign prostatic hypertrophy Hyperlipidemia Discharge disposition Patient is being discharged in stable condition with guarded prognosis to home and will be visited by [facility] as discussed with case management and at the bedside. Patient will be following up with Nephrology as well as Dr. Lehman to establish. History of present illness This is an 78 year old male that was admitted for CHF exacerbation and responded well with IV lasix. Patient will be going home on oral Torsemide 20 mg daily. Patient denies any worsening shortness of breath and states that his shortness of breath has improved. Patient denies any chest pain, palpitations, and has been afebrile. Patient states that his edema has improved of his lower extremities. Patient is eating well with no nausea, vomiting, or diarrhea. Jose marielakonrad is aware of [facility] care coming to the home and agrees with the plan. is at the bedside and verbalizes understanding of treatment plan. On exam patient is sitting up at the bedside recliner in no acute distress. Patient is on room air. Vital signs are 98.3F temp, heart rate 54, respirations 20, blood pressure 143/63, oxygen saturation is 95% on room air. Cardio S1 and S2 heard, respiratory system is clear to auscultation with no wheezing or rhonchi noted, abdomen is soft and non-tender, nervous system shows no focal deficits and gait is steady. Please refer to medication reconciliation sheet for list of medications Patient Condition at Discharge: Stable Plan - Discharge Summary Discharge Rx Participant: No New Discharge Prescriptions: New Spironolactone [Aldactone] 25 mg PO DAILY 30 Days tab Carvedilol [Coreg*] 50 mg PO BID-W/MEALS 30 Days tab Torsemide [Demadex] 10 mg PO BID #60 tablet Continue Ferrous Sulfate [Iron (65 MG Elemental)] 325 mg PO BID Calcium Polycarbophil [Fibercon] 625 mg PO DAILY Multivitamins, Thera [Multivitamin (formulary)] 1 tab PO DAILY Calcium Carbonate [Calcium] 600 mg PO DAILY Abiraterone Acetate [Zytiga] 1,000 mg PO DAILY predniSONE 5 mg PO DAILY Losartan Potassium 100 mg PO DAILY Albuterol Inhaler [Ventolin Hfa Inhaler] 1 - 2 puff INHALATION RT-Q6H PRN PRN Reason: Shortness Of Breath Simvastatin [Zocor] 40 mg PO HS Doxazosin [Cardura] 2 mg PO BID L.acidoph,Paracasei, B.lactis [Probiotic] 1 cap PO DAILY Cholecalciferol [Vitamin D3 (25 Mcg = 1000 Iu)] 1,000 units PO DAILY Discontinued Carvedilol [Coreg] 25 mg PO BID Torsemide 10 mg PO DAILY NIFEdipine [NIFEdipine ER] 30 mg PO DAILY Discharge Medication List Abiraterone Acetate [Zytiga] 1,000 mg PO DAILY 01/20/19 [History] Albuterol Inhaler [Ventolin Hfa Inhaler] 1 - 2 puff INHALATION RT-Q6H PRN 01/20/19 [History] Calcium Carbonate [Calcium] 600 mg PO DAILY 01/20/19 [History] Calcium Polycarbophil [Fibercon] 625 mg PO DAILY 01/20/19 [History] Cholecalciferol [Vitamin D3 (25 Mcg = 1000 Iu)] 1,000 units PO DAILY 01/20/19 [History] Doxazosin [Cardura] 2 mg PO BID 01/20/19 [History] Ferrous Sulfate [Iron (65 MG Elemental)] 325 mg PO BID 01/20/19 [History] L.acidoph,Paracasei, B.lactis [Probiotic] 1 cap PO DAILY 01/20/19 [History] Losartan Potassium 100 mg PO DAILY 01/20/19 [History] Multivitamins, Thera [Multivitamin (formulary)] 1 tab PO DAILY 01/20/19 [History] Simvastatin [Zocor] 40 mg PO HS 01/20/19 [History] predniSONE 5 mg PO DAILY 01/20/19 [History] Carvedilol [Coreg*] 50 mg PO BID-W/MEALS 30 Days tab 01/23/19 [Rx] Spironolactone [Aldactone] 25 mg PO DAILY 30 Days tab 01/23/19 [Rx] Torsemide [Demadex] 10 mg PO BID #60 tablet 01/23/19 [Rx] Follow up Appointment(s)/Referral(s): Adilson Lehman MD [STAFF PHYSICIAN] - 01/29/19 3:15 pm () Semaj Thomas MD [STAFF PHYSICIAN] - 02/05/19 2:15 pm () [facility], [NON-STAFF] - Sb Kelly DO [STAFF PHYSICIAN] - 02/25/19 9:00 am (Saturday) Patient Instructions/Handouts: Heart Failure (DC), Heart Healthy Diet (DC) Activity/Diet/Wound Care/Special Instructions: Activity limited until follow-up continue low salt/heart healthy diet [facility] home care to follow-up Follow up with Dr. Lehman in 2-3 days Discharge Disposition: HOME WITH HOME HEALTH SERVICES
--- NOTE | 2019-01-23 13:49 | XR ---
EXAMINATION TYPE: XR chest 2V DATE OF EXAM: 01/23/2019 COMPARISON: 01/20/2019 TECHNIQUE: PA and lateral views submitted. HISTORY: Chest pain FINDINGS: The lungs are clear and there is no pneumothorax, pleural effusion, or focal pneumonia. Atheroscler otic change aorta. Ectasia of the aorta is stable. Hypertrophic and degenerative change of the spine. No overt failure. Tiny calcified granuloma right upper lobe stable. IMPRESSION: 1. No evidence of overt failure. There is ectasia of the thoracic aorta which could be correlated wit h CT scan as clinically warranted. 2. Probable tiny right upper lobe granuloma.
--- NOTE | 2019-01-23 14:40 | P.PN ---
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 The patient presents to the hospital on this occasion with symptoms of difficulty in breathing. Chest x-ray did not reveal any acute changes, CT of the chest was also performed which did not reveal evidence of pulmonary embolism and did however reveal 3 right lower lobe pulmonary nodules measuring up to 8.2 mm. EKG on arrival here showed atrial flutter with a rapid ventricular response, patient was given adenosine in the emergency room with no results, he was then initiated on a Cardizem drip. His heart rate this morning is in the 120 range. Blood pressure 113/60, heart rate in the 120s this morning, 91% on 5 L of oxygen. White blood cell count 6.6, hemoglobin 11.3, platelet count 271, d-dimer 1.03, sodium 142, potassium 4.3, BUN 21 and creatinine 0.9. Troponins negative 3, BNP [id number]. At the time of my examination this morning, the patient is complaining of persistently feeling quite short of breath. He is on 5 L of oxygen, satting 91%. 01/22/2019 Patient was seen and examined this morning, overall he is feeling better but still complains of some shortness of breath, continues to have bilateral crackles, edema is improving. I pressure 150/70 with a heart rate in the 50s, 99% on room air. Sodium 140, potassium 3.3, BUN 42 and creatinine 2.1. 01/23/2019 Patient seen and examined this morning, he's been up ambulating in the hallway most of the day, hemodynamically stable. He is currently on by mouth Lasix. R epeat chest x-ray showed improvement in congestive heart failure. Objective - Vital Signs Vital signs: Vital Signs Temp 98.3 F 01/23/19 08:00 Pulse 54 L 01/23/19 08:00 Resp 20 01/23/19 08:00 BP 143/63 01/23/19 08:00 Pulse Ox 95 01/23/19 08:00 Intake & Output 01/22/19 01/23/19 01/23/19 18:59 06:59 18:59 Intake Total 720 180 Output Total 1100 2100 300 Balance -380 -2100 -120 Weight 77.2 kg Intake: Oral 720 180 Output: Urine 1100 2100 300 Other: Voiding Method Toilet Toilet Urinal Urinal # Voids 2 1 # Bowel Movements 0 - Exam PHYSICAL EXAMINATION: GENERAL: 78-year-old gentleman in no acute distress at the time of my examination HEENT: Head is atraumatic, normocephalic. Pupils equal, round. Sclera anicteric. Conjunctiva are clear. Mucous membranes of the mouth are moist. Neck is supple. There is elevated jugular venous pressure. No carotid bruit is heard. HEART EXAMINATION: Heart S1 S2 1 systolic ejection murmur is heard CHEST EXAMINATION: Lungs reveal improvement in air entry to the bases ABDOMEN: Soft, nontender. Bowel sounds are heard. No organomegaly noted. EXTREMITIES:[ 2+ peripheral pulses with trace to 1+ evidence of peripheral edema NEUROLOGIC patient is awake, alert and oriented 3 . . - Labs CBC & Chem 7: 01/21/19 06:06 01/23/19 06:14 Labs: Abnormal Lab Results - Last 24 Hours (Table) 01/23/19 Range/Units 06:14 Potassium 3.3 L (3.5-5.1) mmol/L Carbon Dioxide 31 H (22-30) mmol/L BUN 45 H (9-20) mg/dL Creatinine 2.30 H (0.66-1.25) mg/dL Glucose 101 H (74-99) mg/dL Assessment and Plan Plan: Assessment and plan #1 systolic congestive heart failure acute on chronic #2 accelerated hypertension #3 hyperlipidemia #4 diabetes #5 recent right hip surgery #6 prostate cancer, currently on oral chemotherapy #7 nonischemic cardiomyopathy with a documented ejection fraction of 35-40%, moderate aortic stenosis and severe mitral regurgitation #8 acute on chronic renal failure Plan Patient is currently on by mouth Lasix. From our perspective he may be able to be discharged home today. We will make him a follow-up appointment to see Dr. Gonzalez in the office post discharge. DNP note has been reviewed, I agree with a documented findings and plan of care. Patient was seen and examined.
[2019-01-24] MEDS ORDERED: POTASSIUM CHLORIDE ER 20 MEQ TAB.ER PO SCH (09:00)
== END 2019-01-23 14:37 | disposition home health service (06) | DRG 291 ==
LOC: EC 06:18 → 3SCARD 07:22
PROVIDERS: ADMIT Internal Medicine; ATTEND Internal Medicine
DX: I13.0 Hypertensive heart and chronic kidney disease with heart failure and stage 1 through stage 4 chronic kidney disease, or unspecified chronic kidney disease (principal); I50.23 Acute on chronic systolic (congestive) heart failure; N18.4 Chronic kidney disease, stage 4 (severe); E87.2 Acidosis; N17.9 Acute kidney failure, unspecified; I48.92 Unspecified atrial flutter; I42.9 Cardiomyopathy, unspecified; Z96.641 Presence of right artificial hip joint; D64.9 Anemia, unspecified; E11.22 Type 2 diabetes mellitus with diabetic chronic kidney disease; I48.91 Unspecified atrial fibrillation; E78.5 Hyperlipidemia, unspecified; C61 Malignant neoplasm of prostate; E87.6 Hypokalemia; R74.8 Abnormal levels of other serum enzymes; I25.10 Atherosclerotic heart disease of native coronary artery without angina pectoris; T50.2X5A Adverse effect of carbonic-anhydrase inhibitors, benzothiadiazides and other diuretics, initial encounter; M19.90 Unspecified osteoarthritis, unspecified site; I08.3 Combined rheumatic disorders of mitral, aortic and tricuspid valves; I27.20 Pulmonary hypertension, unspecified; N40.0 Benign prostatic hyperplasia without lower urinary tract symptoms; D50.0 Iron deficiency anemia secondary to blood loss (chronic); Z87.891 Personal history of nicotine dependence; I25.2 Old myocardial infarction; Z85.828 Personal history of other malignant neoplasm of skin; Z80.42 Family history of malignant neoplasm of prostate; Z79.899 Other long term (current) drug therapy; Z90.49 Acquired absence of other specified parts of digestive tract; Z81.8 Family history of other mental and behavioral disorders; Z85.46 Personal history of malignant neoplasm of prostate; Z85.51 Personal history of malignant neoplasm of bladder; Z86.19 Personal history of other infectious and parasitic diseases; Z95.5 Presence of coronary angioplasty implant and graft
CPT/HCPCS: 36415; 71046; 76770; 80048; 80053; 81001; 83735; 83880; 84484; 85025; 85610; 85730; 93005; 93306; 96374; 99285

== ENCOUNTER 2019-11-29 10:25 | Inpatient (IN) | payer MEDICARE ==
--- NOTE | 2019-11-29 14:20 | P.NPCON ---
History of Present Illness - Reason for Consult chronic renal failure - History of Present Illness Reason for consultation: Chronic kidney disease stage IV History of present illness: Patient is a 78-year-old male seen in renal consultation for chronic kidney disease. Patient has chronic kidney disease stage IV secondary to cardiorenal syndrome with baseline creatinine in the range of 2-2.5. Agent has systolic CHF with ejection fraction of 35-40% with moderate aortic stenosis and tricuspid regurgitation, severe mitral regurgitation and severe pulmonary hypertension. Patient went to [facility] this morning due to worsening shortness of breath. Patient was complaining of orthopnea. He states he's been taking torsemide 10 mg once daily at home. He denies any fever or chills. No cough. Oral intake has been good. Admits to good urine output. No hematuria or dysuria. Denies chest pain. He is currently on 2 L nasal cannula. He also has history of amyloidosis for which she follows at [facility]. He is currently maintained on Tafamidis. Denies use of nonsteroidals. No history of diabetes. Vital signs are stable. General: The patient appeared well nourished and normally developed. HEENT: Head exam is unremarkable. Neck is without jugular venous distension. LUNGS: Lungs are clear to auscultation and percussion. Breath sounds decreased. HEART: Rate and Rhythm are regular. ABDOMEN: Abdominal exam reveals normal bowel sounds. Nontender, nondistended. EXTREMITITES: 1+ edema. Past Medical History Past Medical History: Atrial Fibrillation, Cancer, Heart Failure, Hyperlipidemia, Hypertension, Osteoarthritis (OA), Renal Disease Additional Past Medical History / Comment(s): Prostate cancer with surgery and hormone based oral chemotherapy, bladder cancer with surgery/instillations, skin cancer with removals, leaky heart valve, CKD stage IV, arthritis in multiple joints, constipation, C-Diff in 06/18/18. History of Any Multi-Drug Resistant Organisms: None Reported Past Surgical History: Appendectomy, Cholecystectomy, Prostate Surgery Additional Past Surgical History / Comment(s): Total R hip 3 weeks ago, cysto with bladder tumor resections, prostatectomy, skin cancer removals-mostly basal cell, colonoscopy Past Anesthesia/Blood Transfusion Reactions: No Reported Reaction Smoking Status: Former smoker - Past Family History Mother Family Medical History: Dementia Father Family Medical History: Cancer Additional Family Medical History / Comment(s): Prostate cancer. Medications and Allergies Home Medications Medication Instructions Recorded Confirmed Type Abiraterone Acetate [Zytiga] 1,000 mg PO DAILY 01/20/19 11/29/19 History Cholecalciferol [Vitamin D3 (25 1,000 units PO DAILY 01/20/19 11/29/19 History Mcg = 1000 Iu)] Losartan Potassium 100 mg PO DAILY 01/20/19 11/29/19 History Multivitamins, Thera [Multivitamin 1 tab PO DAILY 01/20/19 11/29/19 History (formulary)] predniSONE 5 mg PO DAILY 01/20/19 11/29/19 History Calcitriol 0.5 mcg PO DAILY 11/29/19 11/29/19 History Carvedilol [Coreg*] 12.5 mg PO DAILY 11/29/19 11/29/19 History Doxazosin [Cardura] 4 mg PO DAILY 11/29/19 11/29/19 History Simvastatin [Zocor] 20 mg PO HS 11/29/19 11/29/19 History Tafamidis(Unknown Dose) 4 cap PO QID 11/29/19 11/29/19 History Torsemide [Demadex] 10 mg PO DAILY 11/29/19 11/29/19 History hydrALAZINE HCL [Apresoline] 50 mg PO BID 11/29/19 11/29/19 History Allergies Allergy/AdvReac Type Severity Reaction Status Date / Time No Known Allergies Allergy Verified 11/29/19 13:47 Physical Exam Vitals: Vital Signs Temp Pulse Resp BP Pulse Ox 11/29/19 13:00 97.6 F 70 18 197/102 98 Intake and Output 11/28/19 11/29/19 11/29/19 22:59 06:59 14:59 Other: Weight 80.3 kg Assessment and Plan Plan: Assessment: 1. Chronic kidney disease stage IV secondary to cardiorenal syndrome with baseline creatinine in the range of 2-2.5. GFR near baseline. Creatinine was 2.4 this morning. 2. Acute on chronic systolic CHF with ejection fraction of 35-40% with moderate aortic stenosis and tricuspid regurgitation, severe mitral regurgitation. 3. Severe pulmonary hypertension. 4. Volume overload. 5. 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 Follows at [facility]. 6. Chronic kidney disease mineral bone disease maintained on calcitriol. 7. Hypertension with chronic kidney disease. Plan: Start IV Lasix 40 mg twice daily. Resume home antihypertensives. Avoid nephrotoxins. Daily weights. Repeat electrolytes in the morning. Thank you for the consultation. I will continue to follow the patient with you during his hospital stay.
--- NOTE | 2019-11-29 14:29 | P.HPIM ---
History of Present Illness 78-year-old pleasant male with the known history of amyloidosis with chronic kidney disease stage IV congestive heart failure and restrictive cardiomyopathy cardiac systolic dysfunction EF of around 30-35% severe pulmonary hypertension, being treated in [facility] for amyloidosis came in with compensative shortness of breath has been going on for about a month with orthopnea and proximal nocturnal dyspnea patient has not been sleeping on bed recently as he gets short of breath and sitting in the chair at night to sleep. Patient usually takes 10 twice a day. Torsemide. Patient denied any fever chills chest x-ray is consistent with pulmonary edema and patient is presently on Tafamadis for systemic amyloid. Patient had pulmonary hypertension which is severe with RVSP of 105. Patient also company of cough without any sputum production Review of Systems REVIEW OF SYSTEMS: CONSTITUTIONAL: No fever, no malaise, no fatigue. HEENT: No recent visual problems or hearing problems. Denied any sore throat. CARDIOVASCULAR: As mentioned in HPI PULMONARY: no hemoptysis. GASTROINTESTINAL: No diarrhea, no nausea, no vomiting, no abdominal pain. NEUROLOGICAL: No headaches, no weakness, no numbness. HEMATOLOGICAL: Denies any bleeding or petechiae. GENITOURINARY: Denies any burning micturition, frequency, or urgency. MUSCULOSKELETAL/RHEUMATOLOGICAL: Denies any joint pain, swelling, or any muscle pain. ENDOCRINE: Denies any polyuria or polydipsia. The rest of the 14-point review of systems is negative. Past Medical History Past Medical History: Atrial Fibrillation, Cancer, Heart Failure, Hyperlipidemia, Hypertension, Osteoarthritis (OA), Renal Disease Additional Past Medical History / Comment(s): Prostate cancer with surgery and hormone based oral chemotherapy, bladder cancer with surgery/instillations, skin cancer with removals, leaky heart valve, CKD stage IV, arthritis in multiple joints, constipation, C-Diff in 06/18/18. History of Any Multi-Drug Resistant Organisms: None Reported Past Surgical History: Appendectomy, Cholecystectomy, Prostate Surgery Additional Past Surgical History / Comment(s): Total R hip 3 weeks ago, cysto with bladder tumor resections, prostatectomy, skin cancer removals-mostly basal cell, colonoscopy Past Anesthesia/Blood Transfusion Reactions: No Reported Reaction Smoking Status: Former smoker - Past Family History Mother Family Medical History: Dementia Father Family Medical History: Cancer Additional Family Medical History / Comment(s): Prostate cancer. Medications and Allergies Home Medications Medication Instructions Recorded Confirmed Type Abiraterone Acetate [Zytiga] 1,000 mg PO DAILY 01/20/19 11/29/19 History Cholecalciferol [Vitamin D3 (25 1,000 units PO DAILY 01/20/19 11/29/19 History Mcg = 1000 Iu)] Losartan Potassium 100 mg PO DAILY 01/20/19 11/29/19 History Multivitamins, Thera [Multivitamin 1 tab PO DAILY 01/20/19 11/29/19 History (formulary)] predniSONE 5 mg PO DAILY 01/20/19 11/29/19 History Calcitriol 0.5 mcg PO DAILY 11/29/19 11/29/19 History Carvedilol [Coreg*] 12.5 mg PO DAILY 11/29/19 11/29/19 History Doxazosin [Cardura] 4 mg PO DAILY 11/29/19 11/29/19 History Simvastatin [Zocor] 20 mg PO HS 11/29/19 11/29/19 History Tafamidis(Unknown Dose) 4 cap PO QID 11/29/19 11/29/19 History Torsemide [Demadex] 10 mg PO DAILY 11/29/19 11/29/19 History hydrALAZINE HCL [Apresoline] 50 mg PO BID 11/29/19 11/29/19 History Allergies Allergy/AdvReac Type Severity Reaction Status Date / Time No Known Allergies Allergy Verified 11/29/19 13:47 Physical Exam Vitals: Vital Signs Temp Pulse Resp BP Pulse Ox 11/29/19 13:00 97.6 F 70 18 197/102 98 Intake and Output 11/28/19 11/29/19 11/29/19 22:59 06:59 14:59 Other: Weight 80.3 kg PHYSICAL EXAMINATION: GENERAL: The patient is alert and oriented x3, not in any acute distress. Well developed, well nourished. HEENT: Pupils are round and equally reacting to light. EOMI. No scleral icterus. No conjunctival pallor. Normocephalic, atraumatic. No pharyngeal erythema. No thyromegaly. CARDIOVASCULAR: S1 and S2 present. No murmurs, rubs, or gallops. Highly elevated JVD no pedal edema PULMONARY: Chest is clear to auscultation, no wheezing or crackles. ABDOMEN: Soft, nontender, nondistended, normoactive bowel sounds. No palpable organomegaly. MUSCULOSKELETAL: No joint swelling or deformity. EXTREMITIES: No cyanosis, clubbing, or pedal edema. NEUROLOGICAL: Gross neurological examination did not reveal any focal deficits. SKIN: No rashes. Assessment and Plan Plan: -Congestive heart failure chronic systolic dysfunction with acute exacerbation. Patient appears to have severe right-sided heart failure along with restrictive heart disease. Continue with the Lasix at 40 IV twice a day cardiology was consulted. -Mild elevation of troponin up to 0.16 secondary to his heart failure and chronic kidney disease -Chronic kidney disease most probably secondary to amyloidosis patient has stage IV chronic kidney disease nephrology was consulted. -Systemic amyloidosis: Continue with his home medications -Severe pulmonary hypertension -Hypertension secondary to chronic kidney disease and an amyloidosis Hyperlipidemia -Prostate cancer and is on antiandrogens for this which will be continued. -DVT prophylaxis with subcutaneous heparin
[2019-11-29] MEDS: LOSARTAN 50 MG TAB PO SCH (15:12)
[2019-11-29] MEDS: predniSONE 5 MG TAB PO SCH (15:12)
[2019-11-29] MEDS: FUROSEMIDE 10 MG/ML 4 ML VIAL IV SCH ×2 (16:00→22:13)
[2019-11-29] MEDS ORDERED: CARVEDILOL 12.5 MG TAB PO STA (17:30)
[2019-11-29] MEDS: DOXAZOSIN 4 MG TAB PO SCH (17:42)
[2019-11-29] MEDS: TAFAMIDIS PO SCH ×2 (17:42→22:14)
[2019-11-29] MEDS: ABIRATERONE ACETATE 500 MG PO SCH (17:43)
[2019-11-29] MEDS ORDERED: hydrALAZINE HCL 50 MG TAB PO SCH (21:00)
[2019-11-29] MEDS: HEPARIN SODIUM,PORCINE 5,000 UNIT/ML 1 ML VIAL SQ SCH (22:13)
[2019-11-29] MEDS: ATORVASTATIN 10 MG TAB PO SCH (22:13)
[2019-11-30 06:40] LABS: Calcium 8.1 mg/dL (8.4-10.2); Magnesium 2.1 mg/dL (1.6-2.3); Potassium 4.1 mmol/L (3.5-5.1)
--- NOTE | 2019-11-30 07:43 | XR ---
EXAMINATION TYPE: XR chest 1V DATE OF EXAM: 11/30/2019 COMPARISON: Prior chest x-ray 01/23/2019 HISTORY: Congestive heart failure TECHNIQUE: Single frontal view of the chest is obtained. FINDINGS: Patient is rotated, this may causing accentuation in the appearance of the heart. Intersti tium is increased. There is no evident pneumothorax or pleural effusion. Aorta is dense. There are ov erlying cardiac leads. IMPRESSION: Correlate for pulmonary venous hypertension and mild interstitial edema.
--- NOTE | 2019-11-30 07:58 | P.CRDCN ---
History of Present Illness History of present illness: Brian Weaver This is Dr. Gonzalez dictating a consult on this patient The patient was interviewed and examined by me IMPRESSION / ASSESSMENT: Cardiac amyloidosis/systemic amyloidosis Congestive heart failure with systolic dysfunction with restriction Acute and chronic CHF PLAN: Increase hydralazine to 100 mg 3 times a day IV Lasix Oral nitrates 10 mg 3 times a day HPI Patient presented with increasing shortness of breath Known cardiac amyloidosis and systemic amyloidosis with restrictive cardio myopathy LV systolic dysfunction, chronic Acute and chronic heart failure ROS: No fever chills or rigors, no cough, phlegm or expectoration, no nausea, vomiting or diarrhea, no hematuria, dysuria, no musculoskeletal complaints, no strokes or seizures, no skin lesions. EXAMINATION: Blood pressure 175/91, pulse rate in the 60s afebrile Bilateral crackles at the bases Jugular venous distention noted Systolic murmur Mild bilateral edema Orthopnea REVIEW OF LABS, ECG & MEDICAL DATA Sodium 141, potassium 4.1 BUN 45 creatinine 2.46 NT proBNP 26,000 Troponin 0.128 Past Medical History Past Medical History: Atrial Fibrillation, Cancer, Heart Failure, Hyperlipidemia, Hypertension, Osteoarthritis (OA), Renal Disease Additional Past Medical History / Comment(s): Prostate cancer with surgery and hormone based oral chemotherapy, bladder cancer with surgery/instillations, skin cancer with removals, leaky heart valve, CKD stage IV, arthritis in multiple joints, constipation, C-Diff in 06/18/18. History of Any Multi-Drug Resistant Organisms: None Reported Past Surgical History: Appendectomy, Cholecystectomy, Prostate Surgery Additional Past Surgical History / Comment(s): Total R hip 3 weeks ago, cysto with bladder tumor resections, prostatectomy, skin cancer removals-mostly basal cell, colonoscopy Past Anesthesia/Blood Transfusion Reactions: No Reported Reaction Smoking Status: Former smoker - Past Family History Mother Family Medical History: Dementia Father Family Medical History: Cancer Additional Family Medical History / Comment(s): Prostate cancer. Medications and Allergies Home Medications Medication Instructions Recorded Confirmed Type Abiraterone Acetate [Zytiga] 1,000 mg PO DAILY 01/20/19 11/29/19 History Cholecalciferol [Vitamin D3 (25 1,000 units PO DAILY 01/20/19 11/29/19 History Mcg = 1000 Iu)] Losartan Potassium 100 mg PO DAILY 01/20/19 11/29/19 History Multivitamins, Thera [Multivitamin 1 tab PO DAILY 01/20/19 11/29/19 History (formulary)] predniSONE 5 mg PO DAILY 01/20/19 11/29/19 History Calcitriol 0.5 mcg PO DAILY 11/29/19 11/29/19 History Carvedilol [Coreg*] 12.5 mg PO DAILY 11/29/19 11/29/19 History Doxazosin [Cardura] 4 mg PO DAILY 11/29/19 11/29/19 History Simvastatin [Zocor] 20 mg PO HS 11/29/19 11/29/19 History Tafamidis(Unknown Dose) 4 cap PO QID 11/29/19 11/29/19 History Torsemide [Demadex] 10 mg PO DAILY 11/29/19 11/29/19 History hydrALAZINE HCL [Apresoline] 50 mg PO BID 11/29/19 11/29/19 History Allergies Allergy/AdvReac Type Severity Reaction Status Date / Time No Known Allergies Allergy Verified 11/29/19 13:47 Physical Exam Vitals: Vital Signs Temp Pulse Resp BP Pulse Ox 11/30/19 04:00 97.8 F 56 L 18 178/48 98 11/30/19 00:00 97.8 F 66 18 153/91 95 11/29/19 20:00 98.5 F 63 20 175/91 98 11/29/19 19:00 177/94 11/29/19 17:00 75 20 200/96 95 11/29/19 13:00 97.6 F 70 18 197/102 98 Intake and Output 11/29/19 11/30/19 11/30/19 22:59 06:59 14:59 Output Total 925 400 Balance -925 -400 Output: Urine 925 400 Other: # Voids 2 Weight 78.5 kg Results 11/30/19 05:36 Cardiac Enzymes 11/30/19 Range/Units 05:36 Troponin I 0.128 H* (0.000-0.034) ng/mL Comprehensive Metabolic Panel 11/30/19 Range/Units 05:36 Sodium 141 (137-145) mmol/L Potassium 4.1 (3.5-5.1) mmol/L Chloride 113 H (98-107) mmol/L Carbon Dioxide 21 L (22-30) mmol/L BUN 45 H (9-20) mg/dL Creatinine 2.46 H (0.66-1.25) mg/dL Glucose 100 H (74-99) mg/dL Calcium 8.1 L (8.4-10.2) mg/dL Current Medications Generic Name Dose Route Start Last Admin Trade Name Freq PRN Reason Stop Dose Admin Atorvastatin Calcium 10 mg 11/29/19 21:00 11/29/19 22:13 Lipitor PO 10 mg HS ROBYN Administration Calcitriol 0.5 mcg 11/30/19 09:00 Rocaltrol PO DAILY ROBYN Carvedilol 12.5 mg 11/30/19 09:00 Coreg PO DAILY ROBYN Doxazosin Mesylate 4 mg 11/29/19 17:31 11/29/19 17:42 Cardura PO 4 mg DAILY ROBYN Administration Furosemide 40 mg 11/29/19 14:30 11/29/19 22:13 Lasix IV 40 mg Q12HR ROBYN Administration Heparin Sodium (Porcine) 5,000 unit 11/29/19 21:00 11/29/19 22:13 Heparin SQ 5,000 unit Q12HR ROBYN Administration Hydralazine HCl 50 mg 11/29/19 21:00 11/29/19 22:14 Apresoline PO 50 mg BID ROBYN Administration Losartan Potassium 100 mg 11/29/19 14:30 11/29/19 15:12 Cozaar PO 100 mg DAILY ROBYN Administration Multivitamins 1 each 11/30/19 09:00 Theragran PO DAILY [facility] Non-Formulary Medication 1,000 mg 11/29/19 14:30 11/29/19 17:43 Abiraterone Acetate [Zytiga] PO Not Given DAILY [facility] Non Formulary Drug ( 1 cap 11/29/19 18:00 11/29/19 22:14 Tafamidis 20 Mg PO 1 cap Capsules) QID ROBYN Administration Prednisone 5 mg 11/29/19 14:30 11/29/19 15:12 PO 5 mg DAILY ROBYN Administration Intake and Output 11/29/19 11/30/19 11/30/19 22:59 06:59 14:59 Output Total 925 400 Balance -925 -400 Output: Urine 925 400 Other: # Voids 2 Weight 78.5 kg 11/30/19 05:36
[2019-11-30] MEDS ORDERED: CARVEDILOL 12.5 MG TAB PO SCH ×2 (09:00→17:30)
[2019-11-30] MEDS ORDERED: DOXAZOSIN 4 MG TAB PO SCH (09:00)
[2019-11-30] MEDS: ISOSORBIDE DINITRATE 10 MG TAB PO SCH ×3 (09:49→22:16)
[2019-11-30] MEDS: CALCITRIOL 0.25 MCG CAP PO SCH (09:50)
[2019-11-30] MEDS: DOXAZOSIN 4 MG TAB PO SCH (09:50)
[2019-11-30] MEDS: TAFAMIDIS PO SCH ×4 (09:50→22:17)
[2019-11-30] MEDS: predniSONE 5 MG TAB PO SCH (09:50)
[2019-11-30] MEDS: MULTIVITAMINS, THERA 1 EACH TAB PO SCH (09:51)
[2019-11-30] MEDS: FUROSEMIDE 10 MG/ML 4 ML VIAL IV SCH ×2 (09:51→20:22)
[2019-11-30] MEDS: LOSARTAN 50 MG TAB PO SCH (09:51)
[2019-11-30] MEDS: HEPARIN SODIUM,PORCINE 5,000 UNIT/ML 1 ML VIAL SQ SCH ×2 (09:51→20:22)
[2019-11-30] MEDS: hydrALAZINE HCL 50 MG TAB PO SCH ×3 (09:51→22:17)
[2019-11-30] MEDS: ABIRATERONE ACETATE 500 MG PO SCH ×2 (09:52→14:56)
[2019-11-30] MEDS: CARVEDILOL 12.5 MG TAB PO SCH ×2 (09:52→16:59)
[2019-11-30] MEDS ORDERED: MELATONIN 5 MG TABLET PO PRN (11:22)
[2019-11-30 11:31] VITALS: BMI 23.4
--- NOTE | 2019-11-30 12:35 | P.PN ---
Subjective 78-year-old pleasant male with the known history of amyloidosis with chronic kidney disease stage IV congestive heart failure and restrictive cardiomyopathy cardiac systolic dysfunction EF of around 30-35% severe pulmonary hypertension, being treated in [facility] for amyloidosis came in with compensative shortness of breath has been going on for about a month with orthopnea and proximal nocturnal dyspnea patient has not been sleeping on bed recently as he gets short of breath and sitting in the chair at night to sleep. Patient usually takes 10 twice a day. Torsemide. Patient denied any fever chills chest x-ray is consistent with pulmonary edema and patient is presently on Tafamadis for systemic amyloid. Patient had pulmonary hypertension which is severe with RVSP of 105. Patient also company of cough without any sputum production. 11/30/2019 Patient has significant improvement in his respiratory status. Patient will require 1 more day of IV fluids JVD improved significantly chest x-rays consistent with pulmonary hypertension and mild pulmonary edema serum creatinine remains stable. Possibly of discharge tomorrow if he continues to improve. His shortness of breath significantly improved. Patient was asking Sleep-Aid Constitutional: Denied any fatigue denied any fever. Cardio vascular: denied any chest pain, palpitations Gastrointestinal denied any nausea vomiting Pulmonary: Denied any shortness of breath cough Neurologic denied any new focal deficits All inpatient medications were reviewed and appropriate changes in these medications as dictated in the interval history and assessment and plan. Objective - Vital Signs Vital signs: Vital Signs Temp 97.9 F 11/30/19 08:10 Pulse 53 L 11/30/19 11:35 Resp 16 11/30/19 11:35 BP 136/55 11/30/19 11:35 Pulse Ox 97 11/30/19 11:35 Intake & Output 11/29/19 11/30/19 11/30/19 18:59 06:59 18:59 Intake Total 240 Output Total 750 575 250 Balance -750 -575 -10 Weight 80.3 kg 78.5 kg 78.5 kg Intake: Oral 240 Output: Urine 750 575 250 Other: # Voids 2 2 # Bowel Movements 0 - Exam PHYSICAL EXAMINATION: GENERAL: The patient is alert and oriented x3, not in any acute distress. Well developed, well nourished. HEENT: Pupils are round and equally reacting to light. EOMI. No scleral icterus. No conjunctival pallor. Normocephalic, atraumatic. No pharyngeal erythema. No thyromegaly. CARDIOVASCULAR: S1 and S2 present. No murmurs, rubs, or gallops. JVD improved PULMONARY: Chest is clear to auscultation, no wheezing or crackles. ABDOMEN: Soft, nontender, nondistended, normoactive bowel sounds. No palpable organomegaly. MUSCULOSKELETAL: No joint swelling or deformity. EXTREMITIES: No cyanosis, clubbing, or pedal edema. NEUROLOGICAL: Gross neurological examination did not reveal any focal deficits. SKIN: No rashes. - Labs CBC & Chem 7: 11/30/19 05:36 Labs: Abnormal Lab Results - Last 24 Hours (Table) 11/30/19 11/30/19 Range/Units 05:36 05:36 Chloride 113 H (98-107) mmol/L Carbon Dioxide 21 L (22-30) mmol/L BUN 45 H (9-20) mg/dL Creatinine 2.46 H (0.66-1.25) mg/dL Glucose 100 H (74-99) mg/dL Calcium 8.1 L (8.4-10.2) mg/dL Troponin I 0.128 H* (0.000-0.034) ng/mL Assessment and Plan Plan: -Congestive heart failure chronic systolic dysfunction with acute exacerbation. Patient appears to have severe right-sided heart failure along with restrictive heart disease. Continue with the Lasix at 40 IV twice a day etiology evaluate patient continue with the same dose of Lasix and the reassess kidney function tomorrow creatinine remained stable -Mild elevation of troponin up to 0.16 secondary to his heart failure and chronic kidney disease -Chronic kidney disease most probably secondary to amyloidosis patient has stage IV chronic kidney disease nephrology was consulted. -Systemic amyloidosis: Continue with his home medications -Severe pulmonary hypertension -Hypertension secondary to chronic kidney disease and an amyloidosis Hyperlipidemia -Prostate cancer and is on antiandrogens for this which will be continued. -DVT prophylaxis with subcutaneous heparin
--- NOTE | 2019-11-30 12:38 | P.PN ---
Subjective Patient is seen in follow-up for chronic any disease. Patient has chronic kidney disease stage IV secondary to cardiorenal syndrome with baseline c reatinine in the range of 2-2.5. Renal function is stable. He admits to good urine output. He is maintained on IV Lasix. Vital signs are stable. General: The patient appeared well nourished and normally developed. HEENT: Head exam is unremarkable. Neck is without jugular venous distension. LUNGS: Lungs are clear to auscultation and percussion. Breath sounds decreased. HEART: Rate and Rhythm are regular. ABDOMEN: Abdominal exam reveals normal bowel sounds. Non-tender and non- distended. EXTREMITITES: Trace edema. Objective - Vital Signs Vital signs: Vital Signs Temp 97.9 F 11/30/19 08:10 Pulse 53 L 11/30/19 11:35 Resp 16 11/30/19 11:35 BP 136/55 11/30/19 11:35 Pulse Ox 97 11/30/19 11:35 Intake & Output 11/29/19 11/30/19 11/30/19 18:59 06:59 18:59 Intake Total 240 Output Total 750 575 250 Balance -750 -575 -10 Weight 80.3 kg 78.5 kg 78.5 kg Intake: Oral 240 Output: Urine 750 575 250 Other: # Voids 2 2 # Bowel Movements 0 - Labs CBC & Chem 7: 11/30/19 05:36 Labs: Abnormal Lab Results - Last 24 Hours (Table) 11/30/19 11/30/19 Range/Units 05:36 05:36 Chloride 113 H (98-107) mmol/L Carbon Dioxide 21 L (22-30) mmol/L BUN 45 H (9-20) mg/dL Creatinine 2.46 H (0.66-1.25) mg/dL Glucose 100 H (74-99) mg/dL Calcium 8.1 L (8.4-10.2) mg/dL Troponin I 0.128 H* (0.000-0.034) ng/mL Assessment and Plan Plan: Assessment: 1. Chronic kidney disease stage IV secondary to cardiorenal syndrome with baseline creatinine in the range of 2-2.5. GFR near baseline. Creatinine stable at 2.46 today. 2. Acute on chronic systolic CHF with ejection fraction of 35-40% with moderate aortic stenosis and tricuspid regurgitation, severe mitral regurgitation. 3. Severe pulmonary hypertension. 4. Volume overload. Improving with diuresis. 5. 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 Follows at [facility]. 6. Chronic kidney disease mineral bone disease maintained on calcitriol. 7. Hypertension with chronic kidney disease. Controlled. Plan: Maintain Lasix 40 mg IV twice daily for another 24 hours. Can transition over to oral diuretics tomorrow. Avoid nephrotoxins. Daily weights. Check renal ultrasound. Check urinalysis. Repeat electrolytes in the morning.
[2019-11-30 13:04] LABS: Appearance,Urine Clear (Clear); Bilirubin,Urine Negative (Negative); Blood,Urine Negative (Negative); Color,Urine Light Yellow; Glucose,Urine (UA) Negative (Negative); Ketones,Urine Negative (Negative); Leukocyte Esterase,Urine Negative (Negative); Mucus,Urine Rare /hpf; Nitrite,Urine Negative (Negative); PH, Urine 5.5 (5.0-8.0); Protein,Urine 2+ (Negative); RBC,Urine 1 /hpf (0-5); Specific Gravity,Urine 1.007 (1.001-1.035); Urobilinogen,Urine <2.0 mg/dL (<2.0); WBC,Urine 1 /hpf (0-5)
--- NOTE | 2019-11-30 15:12 | US ---
EXAMINATION TYPE: US kidneys/renal and bladder DATE OF EXAM: 11/30/2019 COMPARISON: US 01/21/2019 CLINICAL HISTORY: trever. EXAM MEASUREMENTS: Right Kidney: 8.6 x 5.5 x 5.0 cm Left Kidney: 9.0 x 5.7 x 5.5 cm Right Kidney: No hydronephrosis. Multiple subcentimeter cystic areas visualized, largest measuring 0. 7 cm lower pole. Loss of corticomedullary differentiation Left Kidney: No hydronephrosis. Multiple subcentimeter cystic areas visualized, largest measuring 2.3 cm upper pole. Loss of corticomedullary differentiation Bladder: wnl as visualized Bilateral Jets seen: No There is no evidence for hydronephrosis at this point in time. No nephrolithiasis is seen. The uri nary bladder is anechoic. IMPRESSION: Sonographic sequela of chronic medical renal disease with bilateral cortical renal cysts. No hydronephrosis of either kidney.
[2019-11-30] MEDS: ATORVASTATIN 10 MG TAB PO SCH (20:22)
[2019-12-01] MEDS: CARVEDILOL 12.5 MG TAB PO SCH (05:47)
[2019-12-01 05:52] VITALS: RESP 16
[2019-12-01 08:46] VITALS: TEMP 98
[2019-12-01] MEDS: ABIRATERONE ACETATE 500 MG PO SCH (08:47)
[2019-12-01] MEDS: hydrALAZINE HCL 50 MG TAB PO SCH ×2 (08:47→15:51)
[2019-12-01] MEDS: HEPARIN SODIUM,PORCINE 5,000 UNIT/ML 1 ML VIAL SQ SCH (08:48)
[2019-12-01] MEDS: MULTIVITAMINS, THERA 1 EACH TAB PO SCH (08:48)
[2019-12-01] MEDS: DOXAZOSIN 4 MG TAB PO SCH (08:48)
[2019-12-01] MEDS: predniSONE 5 MG TAB PO SCH (08:48)
[2019-12-01] MEDS: LOSARTAN 50 MG TAB PO SCH (08:48)
[2019-12-01] MEDS: CALCITRIOL 0.25 MCG CAP PO SCH (08:48)
[2019-12-01] MEDS: FUROSEMIDE 10 MG/ML 4 ML VIAL IV SCH (08:48)
[2019-12-01] MEDS: ISOSORBIDE DINITRATE 10 MG TAB PO SCH ×2 (08:49→15:50)
[2019-12-01 08:50] LABS: Calcium 8.7 mg/dL (8.4-10.2); Magnesium 2.2 mg/dL (1.6-2.3); Potassium 3.6 mmol/L (3.5-5.1)
[2019-12-01] MEDS: TAFAMIDIS PO SCH ×2 (10:47→13:03)
[2019-12-01 11:36] VITALS: BP 133/63; PULSE 59
--- NOTE | 2019-12-01 12:54 | P.PN ---
Subjective Patient is seen in follow-up for chronic any disease. Patient has chronic kidney disease stage IV secondary to cardiorenal syndrome with baseline c reatinine in the range of 2-2.5. Renal function is a little worse which is due to diuresis. He admits to good urine output. He is maintained on IV Lasix. Vital signs are stable. General: The patient appeared well nourished and normally developed. HEENT: Head exam is unremarkable. Neck is without jugular venous distension. LUNGS: Lungs are clear to auscultation and percussion. Breath sounds decreased. HEART: Rate and Rhythm are regular. ABDOMEN: Abdominal exam reveals normal bowel sounds. Non-tender and non- distended. EXTREMITITES: Trace edema. Objective - Vital Signs Vital signs: Vital Signs Temp 98 F 12/01/19 11:28 Pulse 59 L 12/01/19 11:28 Resp 16 12/01/19 11:28 BP 133/63 12/01/19 11:28 Pulse Ox 97 12/01/19 11:28 Intake & Output 11/30/19 12/01/19 12/01/19 18:59 06:59 18:59 Intake Total 720 480 Output Total 450 540 Balance 270 -540 480 Weight 78.5 kg 78.3 kg Intake: Oral 720 480 Output: Urine 450 540 Other: # Voids 1 1 # Bowel Movements 0 - Labs CBC & Chem 7: 12/01/19 07:30 Labs: Abnormal Lab Results - Last 24 Hours (Table) 11/30/19 12/01/19 Range/Units Unknown 07:30 Chloride 110 H (98-107) mmol/L BUN 49 H (9-20) mg/dL Creatinine 2.79 H (0.66-1.25) mg/dL Glucose 106 H (74-99) mg/dL Urine Protein 2+ H (Negative) Urine Mucus Rare H (None) /hpf Assessment and Plan Plan: Assessment: 1. Chronic kidney disease stage IV secondary to cardiorenal syndrome with baseline creatinine in the range of 2-2.5. Renal function slightly worse which is due to diuresis. Creatinine 2.79 today. No hydronephrosis noted on kidney ultrasound but kidneys are small in size. He does have proteinuria on UA. 2. Acute on chronic systolic CHF with ejection fraction of 35-40% with moderate aortic stenosis and tricuspid regurgitation, severe mitral regurgitation. 3. Severe pulmonary hypertension. 4. Volume overload. Improving with diuresis. 5. 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 Follows at [facility]. 6. Chronic kidney disease mineral bone disease maintained on calcitriol. 7. Hypertension with chronic kidney disease. Controlled. Plan: Discontinue IV Lasix. Start torsemide 20 mg once daily. Avoid nephrotoxins. Daily weights. Quantify proteinuria outpatient. He will not be a candidate for kidney biopsy due to small sized kidneys and also will not be a candidate for immunosuppressive therapy for glomerulonephritis due to severely impaired GFR.
--- NOTE | 2019-12-01 12:59 | P.PN ---
Subjective Progress Note Date: 12/01/19 This is a pleasant 78-year-old gentleman with history of amyloidosis, chronic kidney disease, restrictive cardiomyopathy, systolic dysfunction with an ejection fraction of 30-35%, severe pulmonary hypertension, who receives treatment at [facility] for amyloidosis. Presented to the hospital here with symptoms of progressively worsening shortness of breath. Currently being treated for congestive heart failure on IV Lasix. He diuresed well through the night last night and this morning feels well. Blood pressure 132/60 with a heart rate in the 50s, 97% on room air. Sodium 140, potassium 3.6, BUN 49, creatinine 2.7. Objective - Vital Signs Vital signs: Vital Signs Temp 98 F 12/01/19 11:28 Pulse 59 L 12/01/19 11:28 Resp 16 12/01/19 11:28 BP 133/63 12/01/19 11:28 Pulse Ox 97 12/01/19 11:28 Intake & Output 11/30/19 12/01/19 12/01/19 18:59 06:59 18:59 Intake Total 720 480 Output Total 450 540 Balance 270 -540 480 Weight 78.5 kg 78.3 kg Intake: Oral 720 480 Output: Urine 450 540 Other: # Voids 1 1 # Bowel Movements 0 - Exam PHYSICAL EXAMINATION: GENERAL: 78-year-old gentleman in no acute distress at the time of my examination HEENT: Head is atraumatic, normocephalic. Pupils equal, round. Sclera anicteric. Conjunctiva are clear. Mucous membranes of the mouth are moist. Neck is supple. There is no elevated jugular venous pressure. No carotid bruit is heard. HEART EXAMINATION: Heart S1 S2 1 systolic murmur is heard CHEST EXAMINATION: Lungs reveal fine crackles to the bases bilaterally. ABDOMEN: Soft, nontender. Bowel sounds are heard. No organomegaly noted. EXTREMITIES: 2+ peripheral pulses with trace evidence of peripheral edema and no calf tenderness noted. NEUROLOGIC patient is awake, alert and oriented 3 . - Labs CBC & Chem 7: 12/01/19 07:30 Labs: Abnormal Lab Results - Last 24 Hours (Table) 11/30/19 12/01/19 Range/Units Unknown 07:30 Chloride 110 H (98-107) mmol/L BUN 49 H (9-20) mg/dL Creatinine 2.79 H (0.66-1.25) mg/dL Glucose 106 H (74-99) mg/dL Urine Protein 2+ H (Negative) Urine Mucus Rare H (None) /hpf Assessment and Plan Plan: Assessment and plan #1 Cardiac amyloidosis/systemic amyloidosis #2 Congestive heart failure with systolic dysfunction with restriction, acute on chronic #3 troponin abnormality, likely secondary to abnormal renal function #4 hypertension #5 chronic kidney disease #6 hyperlipidemia #7 prostate cancer, on antiandrogen's Plan IV Lasix will be discontinued and patient will be started on oral diuretics today by nephrology. Patient may be able to be discharged home from our perspective, to follow-up with cardiology as an outpatient. DNP note has been reviewed, I agree with a documented findings and plan of care. Patient was seen and examined.
--- NOTE | 2019-12-01 13:08 | P.DS ---
Providers Date of admission: 11/29/19 13:00 Attending physician: Parag Yuen Consults: 11/29/19 13:57 Consult Physician Routine Consulting Provider: Sb Kelly Consult Reason/Comments: CKD, Amyloidosis Do you want consulting provider notified?: Yes Placement Type Exists?: Yes 11/29/19 14:26 Consult Physician Routine Consulting Provider: John Gonzalez Consult Reason/Comments: CHF Do you want consulting provider notified?: Yes Placement Type Exists?: Yes Primary care physician: Stated None Hospital Course: 78-year-old pleasant male with the known history of amyloidosis with chronic kidney disease stage IV congestive heart failure and restrictive cardiomyopathy cardiac systolic dysfunction EF of around 30-35% severe pulmonary hypertension, being treated in [facility] for amyloidosis came in with compensative shortness of breath has been going on for about a month with orthopnea and proximal nocturnal dyspnea patient has not been sleeping on bed recently as he gets short of breath and sitting in the chair at night to sleep. Patient usually takes 10 twice a day. Torsemide. Patient denied any fever chills chest x-ray is consistent with pulmonary edema and patient is presently on Tafamadis for systemic amyloid. Patient had pulmonary hypertension which is severe with RVSP of 105. Patient also company of cough without any sputum production. 11/30/2019 Patient has significant improvement in his respiratory status. Patient will require 1 more day of IV fluids JVD improved significantly chest x-rays consistent with pulmonary hypertension and mild pulmonary edema serum creatinine remains stable. Possibly of discharge tomorrow if he continues to improve. His shortness of breath significantly improved. Patient was asking Sleep-Aid 12/01/2019 Patient has significant improvement and is pretty status and volume status patient is clinically doing well will be discharged today patient the Demadex dose will be increased to 20 mg daily. PHYSICAL EXAMINATION: GENERAL: The patient is alert and oriented x3, not in any acute distress. Well developed, well nourished. HEENT: Pupils are round and equally reacting to light. EOMI. No scleral icterus. No conjunctival pallor. Normocephalic, atraumatic. No pharyngeal erythema. No thyromegaly. CARDIOVASCULAR: S1 and S2 present. No murmurs, rubs, or gallops. PULMONARY: Chest is clear to auscultation, no wheezing or crackles. ABDOMEN: Soft, nontender, nondistended, normoactive bowel sounds. No palpable organomegaly. MUSCULOSKELETAL: No joint swelling or deformity. EXTREMITIES: No cyanosis, clubbing, or pedal edema. NEUROLOGICAL: Gross neurological examination did not reveal any focal deficits. SKIN: No rashes. Assessment and Plan Plan: -Congestive heart failure chronic systolic dysfunction with acute exacerbation. Patient appears to have severe right-sided heart failure along with restrictive heart disease. patient is a will be cut this time patient will be discharged today -Mild elevation of troponin up to 0.16 secondary to his heart failure and chronic kidney disease -Chronic kidney disease most probably secondary to amyloidosis patient has stage IV chronic kidney disease -Systemic amyloidosis: Continue with his home medications -Severe pulmonary hypertension -Hypertension secondary to chronic kidney disease and an amyloidosis Hyperlipidemia -Prostate cancer and is on antiandrogens for this which will be continued. Plan - Discharge Summary Discharge Rx Participant: No New Discharge Prescriptions: New Torsemide [Demadex] 20 mg PO DAILY #30 tablet Isosorbide Dinitrate [Isordil] 10 mg PO TID #90 tab Continue Multivitamins, Thera [Multivitamin (formulary)] 1 tab PO DAILY Abiraterone Acetate [Zytiga] 1,000 mg PO DAILY predniSONE 5 mg PO DAILY Losartan Potassium 100 mg PO DAILY Cholecalciferol [Vitamin D3 (25 Mcg = 1000 Iu)] 1,000 units PO DAILY Simvastatin [Zocor] 20 mg PO HS Doxazosin [Cardura] 4 mg PO DAILY Calcitriol 0.5 mcg PO DAILY Tafamidis(Unknown Dose) 4 cap PO QID Carvedilol [Coreg*] 12.5 mg PO DAILY Changed hydrALAZINE HCL [Apresoline] 75 mg PO BID #0 Discontinued Torsemide [Demadex] 10 mg PO DAILY Discharge Medication List Abiraterone Acetate [Zytiga] 1,000 mg PO DAILY 01/20/19 [History] Cholecalciferol [Vitamin D3 (25 Mcg = 1000 Iu)] 1,000 units PO DAILY 01/20/19 [History] Losartan Potassium 100 mg PO DAILY 01/20/19 [History] Multivitamins, Thera [Multivitamin (formulary)] 1 tab PO DAILY 01/20/19 [History] predniSONE 5 mg PO DAILY 01/20/19 [History] Calcitriol 0.5 mcg PO DAILY 11/29/19 [History] Carvedilol [Coreg*] 12.5 mg PO DAILY 11/29/19 [History] Doxazosin [Cardura] 4 mg PO DAILY 11/29/19 [History] Simvastatin [Zocor] 20 mg PO HS 11/29/19 [History] Tafamidis(Unknown Dose) 4 cap PO QID 11/29/19 [History] Isosorbide Dinitrate [Isordil] 10 mg PO TID #90 tab 12/01/19 [Rx] Torsemide [Demadex] 20 mg PO DAILY #30 tablet 12/01/19 [Rx] hydrALAZINE HCL [Apresoline] 75 mg PO BID #0 12/01/19 [Rx]
[2019-12-02] MEDS ORDERED: TORSEMIDE 20 MG TAB PO SCH (09:00)
== END 2019-12-01 17:02 | disposition home or self-care (01) | DRG 291 ==
LOC: 3SCARD 13:00
PROVIDERS: ADMIT Internal Medicine; ATTEND Internal Medicine
DX: I13.0 Hypertensive heart and chronic kidney disease with heart failure and stage 1 through stage 4 chronic kidney disease, or unspecified chronic kidney disease (principal); I50.23 Acute on chronic systolic (congestive) heart failure; N18.4 Chronic kidney disease, stage 4 (severe); E85.3 Secondary systemic amyloidosis; I50.810 Right heart failure, unspecified; I27.20 Pulmonary hypertension, unspecified; C61 Malignant neoplasm of prostate; I42.5 Other restrictive cardiomyopathy; I08.3 Combined rheumatic disorders of mitral, aortic and tricuspid valves; E78.5 Hyperlipidemia, unspecified; I48.91 Unspecified atrial fibrillation; M89.8X9 Other specified disorders of bone, unspecified site; T50.2X5A Adverse effect of carbonic-anhydrase inhibitors, benzothiadiazides and other diuretics, initial encounter; M15.9 Polyosteoarthritis, unspecified; R79.89 Other specified abnormal findings of blood chemistry; Z11.59 Encounter for screening for other viral diseases; Z79.899 Other long term (current) drug therapy; Z79.52 Long term (current) use of systemic steroids; Z87.891 Personal history of nicotine dependence; Z85.828 Personal history of other malignant neoplasm of skin; Z85.51 Personal history of malignant neoplasm of bladder; Z90.79 Acquired absence of other genital organ(s); Z90.49 Acquired absence of other specified parts of digestive tract; Z96.641 Presence of right artificial hip joint; Z80.42 Family history of malignant neoplasm of prostate; Z82.0 Family history of epilepsy and other diseases of the nervous system
CPT/HCPCS: 71045; 76770; 80048; 81001; 83735; 83880; 84484; 87635

== ENCOUNTER 2020-01-11 19:31 | Inpatient (IN) | payer MEDICARE ==
--- NOTE | 2020-01-11 20:05 | ED ---
Recheck HPI - General Chief Complaint: Weakness Stated Complaint: SOB Time Seen by Provider: 01/11/20 19:49 Source: patient, EMS, RN notes reviewed, old records reviewed Mode of arrival: EMS Limitations: no limitations - History of Present Illness Initial Comments: this is an 79-year-old male DF for evaluation patient is sent in from [place] for evaluation of CHF complicated with abnormal troponin, located with chest pain. Patient states chest pain is mildly improved here in the ER. Denying any new pain or complaints no shortness of breath. Patient does have history of atrial fibrillation her blood pressure high cholesterol, underlying cancer. Heart failure MD Complaint: other (Patient states pain is more but improved currently) -: days(s) Returns Today for: persistent/worsening pain related to initial visit, other (Sent to ER for further evaluation by cardiology) Symptoms Since Prior Visit: no new symptoms Associated Symptoms: none, chest pain - Related Data Home Medications Medication Instructions Recorded Confirmed Abiraterone Acetate [Zytiga] 1,000 mg PO DAILY 01/20/19 11/29/19 Cholecalciferol [Vitamin D3 (25 1,000 units PO DAILY 01/20/19 11/29/19 Mcg = 1000 Iu)] Losartan Potassium 100 mg PO DAILY 01/20/19 11/29/19 Multivitamins, Thera [Multivitamin 1 tab PO DAILY 01/20/19 11/29/19 (formulary)] predniSONE 5 mg PO DAILY 01/20/19 11/29/19 Calcitriol 0.5 mcg PO DAILY 11/29/19 11/29/19 Carvedilol [Coreg*] 12.5 mg PO DAILY 11/29/19 11/29/19 Doxazosin [Cardura] 4 mg PO DAILY 11/29/19 11/29/19 Simvastatin [Zocor] 20 mg PO HS 11/29/19 11/29/19 Tafamidis(Unknown Dose) 4 cap PO QID 11/29/19 11/29/19 Previous Rx's Medication Instructions Recorded Isosorbide Dinitrate [Isordil] 10 mg PO TID #90 tab 12/01/19 Torsemide [Demadex] 20 mg PO DAILY #30 tablet 12/01/19 hydrALAZINE HCL [Apresoline] 75 mg PO BID #0 12/01/19 Allergies Allergy/AdvReac Type Severity Reaction Status Date / Time No Known Allergies Allergy Verified 11/29/19 13:47 Review of Systems ROS Statement: Those systems with pertinent positive or pertinent negative responses have been documented in the HPI. ROS Other: All systems not noted in ROS Statement are negative. Past Medical History Past Medical History: Atrial Fibrillation, Cancer, Heart Failure, Hyperlipidemia, Hypertension, Osteoarthritis (OA), Renal Disease Additional Past Medical History / Comment(s): Prostate cancer with surgery and hormone based oral chemotherapy, bladder cancer with surgery/instillations, skin cancer with removals, leaky heart valve, CKD stage IV, arthritis in multiple joints, constipation, C-Diff in 06/18/18. History of Any Multi-Drug Resistant Organisms: None Reported Past Surgical History: Appendectomy, Cholecystectomy, Prostate Surgery Additional Past Surgical History / Comment(s): Total R hip 3 weeks ago, cysto with bladder tumor resections, prostatectomy, skin cancer removals-mostly basal cell, colonoscopy Past Anesthesia/Blood Transfusion Reactions: No Reported Reaction Past Psychological History: No Psychological Hx Reported Smoking Status: Former smoker - Past Family History Mother Family Medical History: Dementia Father Family Medical History: Cancer Additional Family Medical History / Comment(s): Prostate cancer. General Exam Limitations: no limitations General appearance: alert, in no apparent distress Head exam: Present: atraumatic, normocephalic, normal inspection Eye exam: Present: normal appearance, PERRL, EOMI. Absent: scleral icterus, conjunctival injection, periorbital swelling ENT exam: Present: normal exam, mucous membranes moist Neck exam: Present: normal inspection. Absent: tenderness, meningismus, lymphadenopathy Respiratory exam: Present: normal lung sounds bilaterally. Absent: respiratory distress, wheezes, rales, rhonchi, stridor Cardiovascular Exam: Present: regular rate, normal rhythm, normal heart sounds. Absent: systolic murmur, diastolic murmur, rubs, gallop, clicks GI/Abdominal exam: Present: soft, normal bowel sounds. Absent: distended, tenderness, guarding, rebound, rigid Extremities exam: Present: normal inspection, full ROM, normal capillary refill. Absent: tenderness, pedal edema, joint swelling, calf tenderness Back exam: Present: normal inspection Neurological exam: Present: alert, oriented X3, CN II-XII intact Psychiatric exam: Present: normal affect, normal mood Skin exam: Present: warm, dry, intact, normal color. Absent: rash Course Vital Signs 01/11/20 19:38 Temperature 99 F Pulse Rate 60 Respiratory 18 Rate Blood Pressure 189/104 O2 Sat by Pulse 98 Oximetry - Reevaluation(s) Reevaluation #1: 01/11/20 20:04 medical record is reviewed - Consultations Consultation #1: Spoke with sound who agrees to admit patient Medical Decision Making - Medical Decision Making 79-year-old male DF for evaluation of chest pain patient has history of chest pain shortness of breath CHF, patient comes in with elevated troponin as a transfer for cardiac observation Disposition Clinical Impression: Congestive heart failure, Chest pain Disposition: ADMITTED IP TO THIS HOSP Condition: Fair Is patient prescribed a controlled substance at d/c from ED?: No Referrals: Adilson Lehman MD [Primary Care Provider] - 1-2 days
[2020-01-11] MEDS: FUROSEMIDE 10 MG/ML 4 ML VIAL IV SCH (20:25)
[2020-01-11] MEDS: ATORVASTATIN 10 MG TAB PO SCH (22:17)
[2020-01-11] MEDS: hydrALAZINE HCL 50 MG TAB PO SCH (22:17)
[2020-01-11] MEDS: LOSARTAN 50 MG TAB PO SCH (22:17)
--- NOTE | 2020-01-12 01:07 | P.HPIM ---
History of Present Illness H&P Date: 01/11/20 The patient is an 79-year-old male with a PMH of nonischemic cardiomyopathy with systolic CHF (patient follows at [facility] and was told that it was secondary to amyloidosis, reports that he previously had a negative cardiac catheterization), severe mitral regurgitation, hypertension, hyperlipidemia, prostate cancer (initially diagnosed in 2000, currently in relapse, following with a physician at [facility]), and chronic kidney disease who presented to the ED has a transfer from [facility] for shortness of breath. The patient reports that he has been having exertional dyspnea with decreased exercise tolerance along with symptoms consistent with orthopnea and PND over the past 1 month. He reports that his breathing has not significantly worsened, but continues to affect his ADLs. He reports that he often has to wake up and sit at the edge of the bed or move to a chair throughout the night. He reports ongoing bilateral lower extremity edema. He also reports poor energy and occasional episodes of dizziness when attempting to stand up too quickly. The patient otherwise denied chest discomfort, diaphoresis, nausea, or vomiting, or palpitations. He also denied, cough, fever, or chills. Denied abdominal pain, or diarrhea. The patient underwent an extensive evaluation at [facility] which was all reviewed. EKG had revealed sinus bradycardia at 56 bpm with premature atrial contractions along with a borderline prolonged QTC and LVH. Laboratory evaluation revealed a troponin of 0.106, BNP 24,600, WBC count 6.23, hemoglobin 8.7, platelets 167, sodium 138, potassium 3.4, chloride 106, CO2 23, BUN 50, creatinine 3.7, and glucose of 98. The patient was transferred to [facility] for further cardiology evaluation. Review of Systems Pertinent positives and negatives as discussed in HPI, a complete review of syst ems was performed and all other systems are negative. Past Medical History Past Medical History: Atrial Fibrillation, Cancer, Heart Failure, Hyperlipidemia, Hypertension, Osteoarthritis (OA), Renal Disease Additional Past Medical History / Comment(s): Prostate cancer with surgery and hormone based oral chemotherapy, bladder cancer with surgery/instillations, skin cancer with removals, leaky heart valve, CKD stage IV, arthritis in multiple joints, constipation, C-Diff in 06/18/18. History of Any Multi-Drug Resistant Organisms: None Reported Past Surgical History: Appendectomy, Cholecystectomy, Prostate Surgery Additional Past Surgical History / Comment(s): Total R hip 3 weeks ago, cysto with bladder tumor resections, prostatectomy, skin cancer removals-mostly basal cell, colonoscopy Past Anesthesia/Blood Transfusion Reactions: No Reported Reaction Additional Past Anesthesia/Blood Transfusion Reaction / Comment(s): Never had a blood transfusion. Past Psychological History: No Psychological Hx Reported Additional Psychological History / Comment(s): Pt resides with his spouse of 45 yrs. He is independent. They winter in [place] and summer in [place]. Smoking Status: Former smoker Past Alcohol Use History: None Reported, Occasional Additional Past Alcohol Use History / Comment(s): Pt started smoking in 1959 and quit in 1984. Past Drug Use History: None Reported - Past Family History Mother Family Medical History: Dementia Father Family Medical History: Cancer Additional Family Medical History / Comment(s): Prostate cancer. Medications and Allergies Home Medications Medication Instructions Recorded Confirmed Type Abiraterone Acetate [Zytiga] 1,000 mg PO DAILY 01/20/19 01/11/20 History Cholecalciferol [Vitamin D3 (25 1,000 units PO DAILY 01/20/19 01/11/20 History Mcg = 1000 Iu)] Losartan Potassium 100 mg PO DAILY 01/20/19 01/11/20 History Multivitamins, Thera [Multivitamin 1 tab PO DAILY 01/20/19 01/11/20 History (formulary)] predniSONE 5 mg PO DAILY 01/20/19 01/11/20 History Calcitriol 0.5 mcg PO DAILY 11/29/19 01/11/20 History Carvedilol [Coreg*] 12.5 mg PO DAILY 11/29/19 01/11/20 History Doxazosin [Cardura] 4 mg PO DAILY 11/29/19 01/11/20 History Simvastatin [Zocor] 20 mg PO HS 11/29/19 01/11/20 History Isosorbide Dinitrate [Isordil] 10 mg PO TID #90 tab 12/01/19 01/11/20 Rx Torsemide [Demadex] 20 mg PO DAILY #30 tablet 12/01/19 01/11/20 Rx Tafamidis Meglumine [Vyndaqel] 80 mg PO QID 01/11/20 01/11/20 History hydrALAZINE HCL [Apresoline] 50 mg PO BID 01/11/20 01/11/20 History Allergies Allergy/AdvReac Type Severity Reaction Status Date / Time No Known Allergies Allergy Verified 11/29/19 13:47 Physical Exam Vitals: Vital Signs Temp Pulse Pulse Resp BP BP Pulse Ox 01/11/20 20:24 98.0 F 68 18 206/99 97 01/11/20 19:38 99 F 60 18 189/104 98 Intake and Output 01/11/20 01/11/20 01/12/20 14:59 22:59 06:59 Other: # Voids 1 Weight 77.111 kg General: non toxic, no distress, appears at stated age, normal weight Derm: no unusual rashes/lesions no unusual ecchymoses, warm, dry Head: atraumatic, normocephalic, symmetric Eyes: EOMI, no lid lag, anicteric sclera, pupils equal round reactive to light ENT: Nose and ears atraumatic, no thrush, no pharyngeal erythema Neck: No thyromegaly, no cervical lymphadenopathy, trachea midline, supple Mouth: no lip lesion, mucus membranes moist Cardiovascular: S1S2 reg, loud systolic murmur, positive posterior tibial pulse bilateral, 1+ bilateral lower extremity pitting edema to knees, capillary refill less than 2 seconds Lungs: Trace bibasilar rales, no rhonchi, no accessory muscle use Abdominal: soft, nontender to palpation, no guarding, no appreciable organomegaly, normal bowel sounds Ext: no gross muscle atrophy, muscle strength 5 out of 5 in all 4 extremities grossly, no contractures, Neuro: CN II-XI grossly intact, light touch intact all 4 extremities, finger to nose within normal limits, Psych: Alert, oriented, appropriate affect Results Labs: Abnormal Lab Results - Last 24 Hours (Table) 01/11/20 Range/Units 21:10 Troponin I 0.104 H* (0.000-0.034) ng/mL Thrombosis Risk Factor Assmnt - Choose All That Apply Any of the Below Risk Factors Present?: Yes Each Factor Represents 1 point: Heart failure (<1month) Other Risk Factors: Yes Each Risk Factor Represents 3 Points: Age 75 years or older Other congenital or acquired thrombophilia - If yes, enter type in comment: No Thrombosis Risk Factor Assessment Total Risk Factor Score: 4 Thrombosis Risk Factor Assessment Level: Moderate Risk Assessment and Plan Plan: Acute systolic and diastolic CHF exacerbation with history of severe mitral regurgitation -Cardiology consult -Lasix 40 mg IV every 12 hourly -Intake and output -Fluid restriction -Cardiac monitoring Troponin elevation, plateaued -Likely secondary to chronic kidney disease with acute CHF exacerbation -Hold off on anticoagulation for now since patient denying chest discomfort -Management as per above Normocytic anemia, slightly worsened from baseline -Patient is unaware that he ever had anemia -Obtain anemia workup Hypokalemia -Replace and monitor Chronic conditions: Hypertension, hyperlipidemia, prostate cancer, chronic kidney disease -Kidney function at baseline, avoid nephrotoxic agents -Continue with home meds DVT prophylaxis -Heparin subq The patient is admitted with an anticipated greater than 2 midnight stay for evaluation of SOB CODE STATUS: Full Code Discussed with: Patient Anticipated discharge date: 2-[address]: Home A total of 40 minutes was spent on the care of this complex patient more than 50% of the time was spent in counseling and care coordination.
--- NOTE | 2020-01-12 01:31 | XR ---
EXAMINATION TYPE: XR chest 1V portable DATE OF EXAM: 01/12/2020 COMPARISON: Yesterday HISTORY: Short of breath TECHNIQUE: Single view FINDINGS: Heart is enlarged. Thoracic aorta is atheromatous. There are chest leads. The bony thorax i s intact. There is no gross heart failure. Costophrenic angles are clear. IMPRESSION: Mild cardiomegaly. No gross heart failure. Minimal pulmonary fibrotic changes. No signifi cant change compared to yesterday.
[2020-01-12] MEDS: POTASSIUM CHLORIDE ER 20 MEQ TAB.ER PO SCH ×2 (03:04→05:08)
[2020-01-12 08:02] LABS: Basophils # (A) 0.1 k/uL (0-0.2); Basophils % (A) 1 %; Eosinophils # (A) 0.2 k/uL (0-0.7); Eosinophils % (A) 4 %; HCT 28.7 % (39.0-53.0); HGB 9.2 gm/dL (13.0-17.5); Lymphocytes # (A) 0.7 k/uL (1.0-4.8); Lymphocytes % (A) 12 %; MCH 27.6 pg (25.0-35.0); MCHC 31.9 g/dL (31.0-37.0); MCV 86.4 fL (80.0-100.0); Mean Platelet Volume 8.8; Monocytes # (A) 0.4 k/uL (0-1.0); Monocytes % (A) 7 %; Neutrophils # (A) 4.8 k/uL (1.3-7.7); Neutrophils % (A) 76 %; Platelet Count 162 k/uL (150-450); RBC 3.33 m/uL (4.30-5.90); RDW 14.5 % (11.5-15.5); WBC 6.3 k/uL (3.8-10.6)
[2020-01-12 08:16] LABS: Albumin 3.3 g/dL (3.5-5.0); Calcium 10.3 mg/dL (8.4-10.2); Potassium 3.5 mmol/L (3.5-5.1); Total Bilirubin 0.9 mg/dL (0.2-1.3); Total Protein 5.9 g/dL (6.3-8.2)
[2020-01-12] MEDS ORDERED: CARVEDILOL 12.5 MG TAB PO SCH (09:00)
[2020-01-12] MEDS ORDERED: CALCITRIOL 0.25 MCG CAP PO SCH (09:00)
[2020-01-12] MEDS: LOSARTAN 50 MG TAB PO SCH (09:37)
[2020-01-12] MEDS: DOXAZOSIN 4 MG TAB PO SCH (09:37)
[2020-01-12] MEDS: HEPARIN SODIUM,PORCINE 5,000 UNIT/ML 1 ML VIAL SQ SCH ×3 (09:38→23:29)
[2020-01-12] MEDS: CHOLECALCIFEROL 1,000 UNIT TAB PO SCH (09:38)
[2020-01-12] MEDS: hydrALAZINE HCL 50 MG TAB PO SCH ×2 (09:38→21:19)
[2020-01-12] MEDS: MULTIVITAMINS, THERA 1 EACH TAB PO SCH (09:38)
[2020-01-12] MEDS: predniSONE 5 MG TAB PO SCH (09:38)
[2020-01-12] MEDS: ISOSORBIDE DINITRATE 10 MG TAB PO SCH ×3 (09:38→21:19)
[2020-01-12] MEDS: FUROSEMIDE 10 MG/ML 4 ML VIAL IV SCH ×2 (09:39→21:19)
[2020-01-12] MEDS: Abiraterone Acetate [Zytiga] PO SCH ×2 (09:40→13:05)
--- NOTE | 2020-01-12 10:22 | P.PN ---
Subjective Progress Note Date: 01/12/20 Patient is feeling fairly well today. He reported that his shortness of breath is better compared to yesterday. He denies any chest pain. Objective - Vital Signs Vital signs: Vital Signs Temp 98.4 F 01/12/20 03:45 Pulse 64 01/12/20 03:45 Resp 17 01/12/20 03:45 BP 177/81 01/12/20 03:45 Pulse Ox 95 01/12/20 03:45 Intake & Output 01/11/20 01/12/20 01/12/20 18:59 06:59 18:59 Intake Total 240 Output Total 1400 Balance -1400 240 Weight 77 kg Intake: Oral 240 Output: Urine 1400 Other: Voiding Method Urinal # Voids 1 - Exam General: The patient is awake and alert, in no distress Eye: there is normal conjunctiva bilaterally. Neck: The neck is supple, there is no JVD. Cardiovascular: Normal S1-S2, no S3-S4, there is a loud systolic murmur Respiratory: Lungs clear to auscultation bilaterally Gastrointestinal: Abdomen is soft, nontender Musculoskeletal: There is +1 pedal edema. Neurological:. Speech is normal. Skin: Skin is warm and dry - Labs CBC & Chem 7: 01/12/20 05:53 01/12/20 05:53 Labs: Abnormal Lab Results - Last 24 Hours (Table) 01/11/20 01/11/20 01/12/20 Range/Units 21:10 22:45 05:53 RBC 3.33 L (4.30-5.90) m/uL Hgb 9.2 L (13.0-17.5) gm/dL Hct 28.7 L (39.0-53.0) % Lymphocytes # 0.7 L (1.0-4.8) k/uL Chloride (98-107) mmol/L BUN (9-20) mg/dL Creatinine (0.66-1.25) mg/dL Calcium (8.4-10.2) mg/dL Troponin I 0.104 H* 0.104 H* (0.000-0.034) ng/mL Total Protein (6.3-8.2) g/dL Albumin (3.5-5.0) g/dL 01/12/20 Range/Units 05:53 RBC (4.30-5.90) m/uL Hgb (13.0-17.5) gm/dL Hct (39.0-53.0) % Lymphocytes # (1.0-4.8) k/uL Chloride 108 H (98-107) mmol/L BUN 48 H (9-20) mg/dL Creatinine 3.43 H (0.66-1.25) mg/dL Calcium 10.3 H (8.4-10.2) mg/dL Troponin I (0.000-0.034) ng/mL Total Protein 5.9 L (6.3-8.2) g/dL Albumin 3.3 L (3.5-5.0) g/dL Assessment and Plan Assessment: 1. Acute systolic heart failure exacerbation, started on IV Lasix. Cardiology consulted for further evaluation. Echocardiogram pending. Continue strict I's and O's. Daily weight. Fluid restriction. 2. Troponin elevation, most likely secondary to underlying CK D and CHF. Patient denies chest pain. 12-lead EKG showed no acute ischemic changes. Awaiting cardiology evaluation. 3. Stage IIIB chronic kidney disease, creatinine stable around baseline 4. Hypertensive urgency, blood pressure improving. Continue current regimen and monitor closely. 5. Chronic anemia, possibly iron deficiency. hemoglobin stable as compared to January 2019. Anemia workup ordered and pending. A follow-up outpatient. 6. DVT prophylaxis with subcu heparin
[2020-01-12 11:30] VITALS: BMI 23.0
[2020-01-12 11:41] LABS: % Iron Saturation 6.96 (15.00-50.00); Ferritin 362.2 ng/mL (22.0-322.0); Folate, Serum >24.0 ng/mL; Iron 19 ug/dL (65-175); Total Iron Binding Capacity 273 ug/dL (228-460)
[2020-01-12] MEDS: CARVEDILOL 12.5 MG TAB PO SCH (12:38)
[2020-01-12] MEDS: TAFAMIDIS MEGLUMINE PO SCH (13:06)
--- NOTE | 2020-01-12 13:19 | ECHOF ---
Referral Reason:Heart Failure MEASUREMENTS -------- HEIGHT: 182.9 cm WEIGHT: 76.7 kg BP: 177/81 RVIDd: 3.5 cm (< 3.3) IVSd: 1.5 cm (0.6 - 1.1) LVIDd: 6.1 cm (3.9 - 5.3) LVPWd: 1.4 cm (0.6 - 1.1) IVSs: 2.0 cm LVIDs: 4.9 cm LVPWs: 2.0 cm LA Diam: 4.3 cm (2.7 - 3.8) LAESV Index (A-L): 56.95 ml/m Ao Diam: 3.2 cm (2.0 - 3.7) AV Cusp: 1.6 cm (1.5 - 2.6) MV EXCURSION: 22.907 mm (> 18.000) MV EF SLOPE: 93 mm/s (70 - 150) EPSS: 1.6 cm MV E Marcos: 1.01 m/s MV DecT: 177 ms MV A Marcos: 0.50 m/s MV E/A Ratio: 2.02 AV maxP.80 mmHg AV meanP.46 mmHg RAP: 5.00 mmHg RVSP: 61.27 mmHg FINDINGS -------- Sinus rhythm. This was a technically adequate study. The left ventricle is mildly dilated. There is moderate concentric left ventricular hypertrophy. Overall left ventricular systolic function is low-normal with, an EF between 50 - 55 %. The right ventricle is mildly enlarged. LA is severely dilated >40 ml/m2 The right atrial size is normal. Interatrial and interventricular septum intact. There is moderate to severe aortic valve sclerosis. There is moderate aortic stenosis present. Pe ak/mean gradient across the Aortic Valve is 53.80mmHg / 30.46mmHg. The mitral valve leaflets are mildly thickened. Moderate mitral regurgitation is present. Moderate tricuspid regurgitation present. There is severe pulmonary hypertension. The right ventr icular systolic pressure, as measured by Doppler, is 61.27mmHg. Trace/mild (physiologic) pulmonic regurgitation. The aortic root size is normal. The inferior vena cava is mildly dilated. There is no pericardial effusion. CONCLUSIONS -------- 1. The left ventricle is mildly dilated. 2. There is moderate concentric left ventricular hypertrophy. 3. Overall left ventricular systolic function is low-normal with, an EF between 50 - 55 %. 4. The right ventricle is mildly enlarged. 5. LA is severely dilated >40 ml/m2 6. There is moderate to severe aortic valve sclerosis. 7. There is moderate aortic stenosis present. 8. Peak/mean gradient across the Aortic Valve is 53.80mmHg / 30.46mmHg. 9. The mitral valve leaflets are mildly thickened. 10. Moderate mitral regurgitation is present. 11. Moderate tricuspid regurgitation present. 12. There is severe pulmonary hypertension. 13. Trace/mild (physiologic) pulmonic regurgitation. 14. The inferior vena cava is mildly dilated. 15. There is no pericardial effusion. CUT TO LENGTH OPERATOR: Pilar Conte RDCS
--- NOTE | 2020-01-12 16:32 | P.CRDCN ---
History of Present Illness Consult date: 01/12/20 Requesting physician: Roque Duval Consult reason: congestive heart failure Chief complaint: Shortness of breath History of present illness: This is an 79-year-old gentleman with past medical history significant for nonischemic cardio myopathy, amyloidosis, severe mitral regurgitation, hypertension, hyperlipidemia, prostate cancer, chronic kidney disease, presented to the emergency room as a transfer from [place] with symptoms of shortness of breath. According to the patient, the symptoms have been progressively worsening over the past few weeks. Positive orthopnea, significant bilateral peripheral edema. Evaluation of the workup at [facility] was reviewed, EKG showed sinus bradycardia with a heart rate in the 50s, PACs. Troponin 0.106, BNP 24,600, white blood cell count 6.2, hemoglobin 8.7, platelet 167, sodium 138, potassium 3.4, chloride 106, CO2 23, BUN 50, creatinine 3.7, glucose 98. Chest x-ray showed mild cardiomegaly, no gross heart failure, minimal pulmonary fibrotic changes. Blood pressure here 148/70 with a heart rate in the 50s, 96% on 2 L of oxygen. Blood cell count here 6.3, hemoglobin 9.2, platelet count 162. Sodium 138, potassium 3.5, BUN 48, creatinine 3.4. Troponin 0.1, 0.1. Vitamin B12 thousand and 69, folate greater than 24, albumin 3.3, total protein 5.9. Ferritin 362.2, total bilirubin 0.9, TIBC 273, percent saturation 6.9, iron 19. Patient was initiated on IV Lasix, overall he states that he feels his breathing is improved today as compared with yesterday. He diuresed 1400 to the night. Past Medical History Past Medical History: Atrial Fibrillation, Cancer, Heart Failure, Hyperlipidemia , Hypertension, Osteoarthritis (OA), Renal Disease Additional Past Medical History / Comment(s): Prostate cancer with surgery and hormone based oral chemotherapy, bladder cancer with surgery/instillations, skin cancer with removals, leaky heart valve, CKD stage IV, arthritis in multiple joints, constipation, C-Diff in 06/18/18. History of Any Multi-Drug Resistant Organisms: None Reported Past Surgical History: Appendectomy, Cholecystectomy, Prostate Surgery Additional Past Surgical History / Comment(s): Total R hip 3 weeks ago, cysto with bladder tumor resections, prostatectomy, skin cancer removals-mostly basal cell, colonoscopy Past Anesthesia/Blood Transfusion Reactions: No Reported Reaction Additional Past Anesthesia/Blood Transfusion Reaction / Comment(s): Never had a blood transfusion. Past Psychological History: No Psychological Hx Reported Additional Psychological History / Comment(s): Pt resides with his spouse of 45 yrs. He is independent. They winter in [place] and summer in [place]. Smoking Status: Former smoker Past Alcohol Use History: None Reported, Occasional Additional Past Alcohol Use History / Comment(s): Pt started smoking in 1959 and quit in 1984. Past Drug Use History: None Reported - Past Family History Mother Family Medical History: Dementia Father Family Medical History: Cancer Additional Family Medical History / Comment(s): Prostate cancer. Medications and Allergies Home Medications Medication Instructions Recorded Confirmed Type Abiraterone Acetate [Zytiga] 1,000 mg PO DAILY 01/20/19 01/11/20 History Cholecalciferol [Vitamin D3 (25 1,000 units PO DAILY 01/20/19 01/11/20 History Mcg = 1000 Iu)] Losartan Potassium 100 mg PO DAILY 01/20/19 01/11/20 History Multivitamins, Thera [Multivitamin 1 tab PO DAILY 01/20/19 01/11/20 History (formulary)] predniSONE 5 mg PO DAILY 01/20/19 01/11/20 History Calcitriol 0.5 mcg PO DAILY 11/29/19 01/11/20 History Carvedilol [Coreg*] 12.5 mg PO DAILY 11/29/19 01/11/20 History Doxazosin [Cardura] 4 mg PO DAILY 11/29/19 01/11/20 History Simvastatin [Zocor] 20 mg PO HS 11/29/19 01/11/20 History Isosorbide Dinitrate [Isordil] 10 mg PO TID #90 tab 12/01/19 01/11/20 Rx Torsemide [Demadex] 20 mg PO DAILY #30 tablet 12/01/19 01/11/20 Rx Tafamidis Meglumine [Vyndaqel] 80 mg PO QID 01/11/20 01/11/20 History hydrALAZINE HCL [Apresoline] 50 mg PO BID 01/11/20 01/11/20 History Allergies Allergy/AdvReac Type Severity Reaction Status Date / Time No Known Allergies Allergy Verified 11/29/19 13:47 Physical Exam Vitals: Vital Signs Temp Pulse Pulse Resp BP BP Pulse Ox 01/12/20 12:00 97.7 F 52 L 18 148/70 96 01/12/20 08:00 97.7 F 58 L 18 185/77 98 01/12/20 03:45 98.4 F 64 17 177/81 95 01/11/20 23:20 98.5 F 62 17 163/75 97 01/11/20 20:24 98.0 F 68 18 206/99 97 01/11/20 19:38 99 F 60 18 189/104 98 Intake and Output 01/12/20 01/12/20 01/12/20 06:59 14:59 22:59 Intake Total 480 Output Total 1400 Balance -1400 480 Intake: Oral 480 Output: Urine 1400 Other: Voiding Method Urinal Urinal # Voids 1 2 Weight 77 kg 77 kg PHYSICAL EXAMINATION: GENERAL: 79-year-old gentleman in no acute distress at the time of my examination HEENT: Head is atraumatic, normocephalic. Pupils equal, round. Sclera anicteric. Conjunctiva are clear. Mucous membranes of the mouth are moist. Neck is supple. There is no elevated jugular venous pressure. No carotid bruit is heard. HEART EXAMINATION: Heart S1 and S2 systolic murmur is heard CHEST EXAMINATION: Lungs reveal rales to bilateral bases. ABDOMEN: Soft, nontender. Bowel sounds are heard. No organomegaly noted. EXTREMITIES: 2+ peripheral pulses with evidence of peripheral edema and no calf tenderness noted. NEUROLOGIC patient is awake, alert and oriented 3 . . Results 01/12/20 05:53 01/12/20 05:53 Cardiac Enzymes 01/11/20 01/11/20 01/12/20 Range/Units 21:10 22:45 05:53 AST 19 (17-59) U/L Troponin I 0.104 H* 0.104 H* (0.000-0.034) ng/mL CBC 01/12/20 Range/Units 05:53 WBC 6.3 (3.8-10.6) k/uL RBC 3.33 L (4.30-5.90) m/uL Hgb 9.2 L (13.0-17.5) gm/dL Hct 28.7 L (39.0-53.0) % Plt Count 162 (150-450) k/uL Comprehensive Metabolic Panel 01/12/20 Range/Units 05:53 Sodium 138 (137-145) mmol/L Potassium 3.5 (3.5-5.1) mmol/L Chloride 108 H (98-107) mmol/L Carbon Dioxide 22 (22-30) mmol/L BUN 48 H (9-20) mg/dL Creatinine 3.43 H (0.66-1.25) mg/dL Glucose 94 (74-99) mg/dL Calcium 10.3 H (8.4-10.2) mg/dL AST 19 (17-59) U/L ALT 11 (4-49) U/L Alkaline Phosphatase 96 (38-126) U/L Total Protein 5.9 L (6.3-8.2) g/dL Albumin 3.3 L (3.5-5.0) g/dL Current Medications Generic Name Dose Route Start Last Admin Trade Name Freq PRN Reason Stop Dose Admin Atorvastatin Calcium 10 mg 01/11/20 22:00 01/11/20 22:17 Lipitor PO 10 mg HS ROBYN Administration Carvedilol 12.5 mg 01/12/20 12:30 01/12/20 12:38 Coreg PO 12.5 mg W/LUNCH ROBYN Administration Cholecalciferol 1,000 unit 01/12/20 09:00 01/12/20 09:38 Vitamin D3 (25 Mcg = 1000 Iu) PO 1,000 unit DAILY ROBYN Administration Doxazosin Mesylate 4 mg 01/12/20 09:00 01/12/20 09:37 Cardura PO 4 mg DAILY ROBYN Administration Furosemide 40 mg 01/11/20 20:30 01/12/20 09:39 Lasix IV 40 mg Q12H ROBYN Administration Heparin Sodium (Porcine) 5,000 unit 01/12/20 08:00 01/12/20 09:38 Heparin SQ 5,000 unit Q8HR ROBYN Administration Hydralazine HCl 50 mg 01/11/20 22:00 01/12/20 09:38 Apresoline PO 50 mg BID ROBYN Administration Isosorbide Dinitrate 10 mg 01/12/20 09:00 01/12/20 09:38 Isordil PO 10 mg TID ROBYN Administration Losartan Potassium 100 mg 01/11/20 22:00 01/12/20 09:37 Cozaar PO 100 mg DAILY ROBYN Administration Multivitamins 1 each 01/12/20 09:00 01/12/20 09:38 Theragran PO 1 each DAILY ROBYN Administration Abiraterone Acetate 1,000 mg 01/12/20 09:00 01/12/20 13:05 [Zytiga] PO 1,000 mg DAILY ROBYN Administration Tafamidis Meglumine 80 mg 01/12/20 13:00 01/12/20 13:06 [Vyndaqel] PO 80 mg DAILY ROBYN Administration Prednisone 5 mg 01/12/20 09:00 01/12/20 09:38 PO 5 mg DAILY ROBYN Administration Intake and Output 01/12/20 01/12/20 01/12/20 06:59 14:59 22:59 Intake Total 480 Output Total 1400 Balance -1400 480 Intake: Oral 480 Output: Urine 1400 Other: Voiding Method Urinal Urinal # Voids 1 2 Weight 77 kg 77 kg Patient Weight 01/13/20 06:59 Weight 77 kg 01/12/20 05:53 01/12/20 05:53 EKG Interpretations (text) EKG shows sinus bradycardia with nonspecific ST-T wave changes Assessment and Plan Plan: Assessment and plan #1 diastolic congestive heart failure acute on chronic #2 moderate mitral regurgitation, moderate aortic stenosis #3 troponin abnormality, likely secondary to abnormal renal function, not consistent with acute coronary syndrome. #4 normocytic anemia #5 hypertension #6 hyperlipidemia #7 prostate cancer #8 acute on chronic kidney disease #9 amyloidosis Plan Echocardiogram with Doppler study was performed which revealed an ejection f raction of 50-55%, moderate aortic stenosis, moderate mitral regurgitation and severe pulmonary hypertension. We will continue the patient on the current dose of IV Lasix, continue to monitor intake and output along with daily weights and daily lytes BUN and creatinine. DNP note has been reviewed, I agree with a documented findings and plan of care. Patient was seen and examined.
--- NOTE | 2020-01-12 16:39 | CONS ---
CONSULTATION REASON FOR CONSULT: Renal failure. HISTORY OF PRESENT ILLNESS: Patient is an 79-year-old male with history of chronic kidney disease, NKF stage 4-5 with previous creatinine about 2.4-2.7 mg/dL. Etiology is nephrosclerosis. Patient was admitted to the hospital with complaints of increased shortness of breath and increasing edema. Patient does have a history of amyloidosis as well and follows at [facility]. Patient has been talked to regarding renal replacement therapy down the road and he was scheduled to have outpatient education for dialysis. Patient does have cardiomyopathy with EF 35%-40% with moderate aortic stenosis, tricuspid regurg and severe pulmonary hypertension. His creatinine this admission is 3.43 mg/dL. It was 3.4 on 12/03/2019 as well. Albumin is low at 3.3. No ongoing fevers, chills, nausea, vomiting or abdominal pain. No chest pain. PAST MEDICAL HISTORY: Atrial fibrillation, CHF, hyperlipidemia, hypertension, osteoarthritis, CKD stage 4 to 5, history of prostatic cancer, history of bladder cancer, skin cancers, C diff colitis, anemia of chronic disease, history of amyloidosis. SOCIAL HISTORY: Patient is a former smoker. No history of drug abuse or alcohol abuse. MEDICATIONS: At home included Zytiga, vitamin D3, losartan, calcitriol, Coreg, Cardura, Zocor, Isordil, Demadex, , hydralazine. ALLERGIES: None. PHYSICAL EXAMINATION: Patient is comfortable, awake, alert, oriented x3, not in any acute distress. Blood pressure is 148/70, heart rate 52 per minute, patient is afebrile. Examination of the heart, S1, S2. Examination of the lungs, bilateral breath sounds are heard. Abdomen is soft, nontender. Examination of the lower extremities shows chronic skin changes, edema trace bilaterally. 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 LABS: Show sodium of 138, potassium 3.5, chloride 108, CO2 is 22, BUN 48, creatinine 3.43, calcium was 10.3, iron saturation 6.9%, albumin 3.3, troponin was 0.10. ASSESSMENT: 1. Acute kidney injury on top of chronic kidney disease mostly cardiorenal. Serum creatinine has actually been 3.4 in November of 2019 as well. Currently it is the same. The patient has been talked to regarding renal replacement therapy, which he will need to start soon. Currently patient does not have any indication to start dialysis. I have discussed with him regarding options including PD down the road. 2. Mild hypercalcemia associated with use of Calcitriol. I will hold off on the calcitriol for now. 3. Volume overload maintained on IV Lasix 40 mg q.12 hours, which I will continue. 4. CKD mineral bone disorder. DC calcitriol for now. 5. Hypertension. Patient is maintained on Cozaar. His blood pressure is elevated. Therefore, I will continue with the Cozaar for now. 6. Anemia with severe iron deficiency. The patient will be given IV iron during his hospitalization. He will also be maintained on erythrocyte stimulating agents as outpatient. I will give him a dose of Aranesp during his hospitalization. PLAN: Follow up on echocardiogram results. Continue with IV Lasix. DC Calcitriol and patient will be scheduled for outpatient dialysis education for starting renal replacement therapy soon as outpatient. Patient currently does not need to be dialyzed. Thank you for this consultation. We will continue to follow the patient with you during his hospitalization. MMODL / IJN: [id number] /
[2020-01-12] MEDS: ATORVASTATIN 10 MG TAB PO SCH (21:19)
[2020-01-13] MEDS: FUROSEMIDE 10 MG/ML 4 ML VIAL IV SCH (07:58)
[2020-01-13] MEDS: HEPARIN SODIUM,PORCINE 5,000 UNIT/ML 1 ML VIAL SQ SCH ×2 (07:58→15:09)
[2020-01-13] MEDS: Abiraterone Acetate [Zytiga] PO SCH (07:59)
[2020-01-13] MEDS: ISOSORBIDE DINITRATE 10 MG TAB PO SCH ×4 (07:59→21:14)
[2020-01-13] MEDS: hydrALAZINE HCL 50 MG TAB PO SCH ×2 (07:59→21:14)
[2020-01-13] MEDS: predniSONE 5 MG TAB PO SCH (07:59)
[2020-01-13] MEDS: DOXAZOSIN 4 MG TAB PO SCH (07:59)
[2020-01-13] MEDS: MULTIVITAMINS, THERA 1 EACH TAB PO SCH (08:00)
[2020-01-13] MEDS: LOSARTAN 50 MG TAB PO SCH (08:00)
[2020-01-13] MEDS: CHOLECALCIFEROL 1,000 UNIT TAB PO SCH (08:00)
[2020-01-13 08:05] LABS: Calcium 11.3 mg/dL (8.4-10.2)
[2020-01-13] MEDS: TAFAMIDIS MEGLUMINE PO SCH (08:14)
[2020-01-13] MEDS: CARVEDILOL 12.5 MG TAB PO SCH (12:23)
--- NOTE | 2020-01-13 15:42 | P.PN ---
Subjective Progress Note Date: 01/13/20 This is an 79-year-old gentleman with past medical history significant for nonischemic cardio myopathy, amyloidosis, severe mitral regurgitation, hypertension, hyperlipidemia, prostate cancer, chronic kidney disease, presented to the emergency room as a transfer from [place] with symptoms of shortness of breath. According to the patient, the symptoms have been progressively worsening over the past few weeks. Positive orthopnea, significant bilateral peripheral edema. Evaluation of the workup at [facility] was reviewed, EKG showed sinus bradycardia with a heart rate in the 50s, PACs. Troponin 0.106, BNP 24,600, white blood cell count 6.2, hemoglobin 8.7, platelet 167, sodium 138, potassium 3.4, chloride 106, CO2 23, BUN 50, creatinine 3.7, glucose 98. Chest x-ray showed mild cardiomegaly, no gross heart failure, minimal pulmonary fibrotic changes. Blood pressure here 148/70 with a heart rate in the 50s, 96% on 2 L of oxygen. Blood cell count here 6.3, hemoglobin 9.2, platelet count 162. Sodium 138, potassium 3.5, BUN 48, creatinine 3.4. Troponin 0.1, 0.1. Vitamin B12 thousand and 69, folate greater than 24, albumin 3.3, total protein 5.9. Ferritin 362.2, total bilirubin 0.9, TIBC 273, percent saturation 6.9, iron 19. Patient was initiated on IV Lasix, overall he states that he feels his breathing is improved today as compared with yesterday. He diuresed 1400 to the night. 01/13/2020 Patient seen and examined this morning, diuresing well overall, his weight today is down 2 kg. Blood pressure 96/50 with a heart rate in the 50s. Sodium 140, potassium 4.0, BUN 57, creatinine 3.7. Echocardiogram with Doppler study revealed an ejection fraction of 50-55%. LA is severely dilated, moderate MR, moderate TR, severe pulmonary hypertension. Because of the patient's renal function we will discontinue the Cozaar 100 mg today. Objective - Vital Signs Vital signs: Vital Signs Temp 97.7 F 01/13/20 15:18 Pulse 59 L 01/13/20 15:18 Resp 16 01/13/20 15:18 BP 96/58 01/13/20 15:18 Pulse Ox 99 07/08/20 15:18 Intake & Output 01/12/20 01/13/20 01/13/20 18:59 06:59 18:59 Intake Total 960 480 Balance 960 480 Weight 77 kg 75 kg Intake: Oral 960 480 Other: Voiding Method Urinal Toilet Urinal # Voids 2 2 1 - Exam PHYSICAL EXAMINATION: GENERAL: 79-year-old gentleman in no acute distress at the time of my examination HEENT: Head is atraumatic, normocephalic. Pupils equal, round. Sclera anicteric. Conjunctiva are clear. Mucous membranes of the mouth are moist. Neck is supple. There is no elevated jugular venous pressure. No carotid bruit is heard. HEART EXAMINATION: Heart S1 and S2 systolic murmur is heard CHEST EXAMINATION: Lungs reveal rales to bilateral bases. ABDOMEN: Soft, nontender. Bowel sounds are heard. No organomegaly noted. EXTREMITIES: 2+ peripheral pulses with evidence of peripheral edema and no calf tenderness noted. NEUROLOGIC patient is awake, alert and oriented 3 . - Labs CBC & Chem 7: 01/12/20 05:53 01/13/20 07:05 Labs: Abnormal Lab Results - Last 24 Hours (Table) 01/13/20 Range/Units 07:05 BUN 57 H (9-20) mg/dL Creatinine 3.77 H (0.66-1.25) mg/dL Glucose 100 H (74-99) mg/dL Calcium 11.3 H (8.4-10.2) mg/dL Assessment and Plan Plan: Assessment and plan #1 diastolic congestive heart failure acute on chronic #2 moderate mitral regurgitation, moderate aortic stenosis #3 troponin abnormality, likely secondary to abnormal renal function, not consistent with acute coronary syndrome. #4 normocytic anemia #5 hypertension #6 hyperlipidemia #7 prostate cancer #8 acute on chronic kidney disease #9 amyloidosis Plan We will continue current dose of IV Lasix today, continue to monitor the intake and output along with daily weights and daily lytes BUN and creatinine. We will stop the Cozaar today. Repeat a chest x-ray tomorrow morning. DNP note has been reviewed, I agree with a documented findings and plan of care. Patient was seen and examined.
--- NOTE | 2020-01-13 15:43 | P.PN ---
Subjective Progress Note Date: 01/13/20 (delayed charting seen at 1145) Principal diagnosis: Shortness of breath Patient is 79-year-old male with a history of nonischemic cardiomyopathy with systolic congestive heart failure (patient follows at [facility] and was told that it was secondary to amyloidosis, reports that he previously had a negative cardiac catheterization), severe mitral regurgitation, hypertension, hyperlipidemia, and CKD IV who presented initially to [facility] due to secondary to worsening dyspnea over the last 1 month. There is EKG revealed sinus bradycardia rate of 56 with PACs. Laboratory analysis showed an elevated troponin 0.106, BNP 24,600, hemoglobin 8.7, BUN 50, and creatinine of 3.7. He was transferred here for cardiology evaluation. On arrival the patient was hypertensive with a blood pressure of 189/104 that maxed at 206/99. He was found to have acute exacerbation of systolic CHF and was started on IV Lasix, he was admitted for further care. His troponin here remained flat. He was seen by cardio and underwent echo which showed ejection fraction 50-55%, moderate concentric LVH, and severely dilated left atrium. He was found have severe pulmonary hypertension along with moderate to severe aortic valve sclerosis with moderate aortic stenosis. He has also seen by nephrology who diagnosed him with AK on top of chronic kidney disease and serum creatinine was 3.4 at baseline. Patient seen and examined at bedside. He states that his breathing is much better, he is able to ambulate better. No nausea, vomiting, or diarrhea. No chest pain. He plans on continuing to follow with [facility] after discharge. Objective - Vital Signs Vital signs: Vital Signs Temp 97.7 F 01/13/20 15:18 Pulse 59 L 01/13/20 15:18 Resp 16 01/13/20 15:18 BP 96/58 01/13/20 15:18 Pulse Ox 99 01/13/20 15:18 Intake & Output 01/12/20 01/13/20 01/13/20 18:59 06:59 18:59 Intake Total 960 480 Balance 960 480 Weight 77 kg 75 kg Intake: Oral 960 480 Other: Voiding Method Urinal Toilet Urinal # Voids 2 2 1 - Labs CBC & Chem 7: 01/12/20 05:53 01/13/20 07:05 Labs: Abnormal Lab Results - Last 24 Hours (Table) 01/13/20 Range/Units 07:05 BUN 57 H (9-20) mg/dL Creatinine 3.77 H (0.66-1.25) mg/dL Glucose 100 H (74-99) mg/dL Calcium 11.3 H (8.4-10.2) mg/dL Assessment and Plan Assessment: Acute exacerbation of congestive heart failure, diastolic with prior systolic dysfunction secondary to amyloidosis EF 55% -Decreased IV Lasix to once daily -Cardiology recommendations appreciated -Continue with losartan and Coreg - continue with Tafamidis from home - outpatient follow-up with [facility] Hypertensive urgency -Improved -Continue with hydralazine, Lasix, Imdur, Coreg, and losartan Acute kidney injury on chronic kidney disease stage IV -Baseline creatinine 3.4 -Nephrology recommendations appreciated -Follow creatinine closely with need for IV Lasix -Avoid additional nephrotoxic agents, has been on Cozaar at home and this was continued with the approval of nephrology Hypercalcemia with use of calcitriol -Worsening today but may be secondary to IV Lasix -Continue off calcitriol Iron deficiency anemia - IV iron per nephro - follow CBC - B12 and folate normal P. A fib - not on anticoagulation - tele - BB HLD - statin Metastatic prostate cancer - continue antiandrogen after discharge DVT prophylaxis: Heparin Discussed with: patient, nursing Anticipated discharge: in AM Anticipated discharge place: home A total of 35 minutes was spent on the care of this complex patient more than 50% of the time was spent in counseling and care coordination.
--- NOTE | 2020-01-13 15:51 | PN ---
PROGRESS NOTE Patient is seen for followup for chronic kidney disease and an element of acute kidney injury, mostly cardiorenal. He is currently maintained on IV Lasix and states he is feeling better. He denies any chest pains or shortness of breath. Serum creatinine was slightly elevated at 3.7, up from 3.4 mg/dL. The patient has had good urine output. It is not accurately charted. His weight is, however, down to 75.6 from 77 kg on initial admission. Lasix is 40 mg IV q.12 hours. Patient has been talked to regarding renal replacement therapy, and education will be started as outpatient. PHYSICAL EXAMINATION: On examination today, patient is comfortable. Blood pressure 162/96, heart rate 61 per minute. He is afebrile. EXAMINATION OF THE HEART: S1 and S2. EXAMINATION OF LUNGS: Decreased breath sounds at bases. ABDOMEN: Soft, non-tender. Examination of lower extremities shows no significant edema. BURNER SHAFT exam is grossly intact. LABS: Labs show sodium 140, potassium 4.0, chloride 107, BUN 57, serum creatinine 3.7. Hemoglobin is 9.2 g/dL. ASSESSMENT: 1. Acute kidney injury, mostly cardiorenal; serum creatinine slightly higher today. The patient is maintained on IV Lasix. Blood pressure is not significantly low; in fact, it is on the higher side. I will repeat a chest x-ray today and we can switch to oral diuretics tomorrow. Continue with the Cozaar. 2. Congestive heart failure, acute on top of chronic, mainly diastolic. 3. Chronic kidney disease, stage 4, secondary to nephrosclerosis. However, patient does have proteinuria. He has a history of amyloidosis with infiltrative cardiomyopathy, currently maintained on Tafamidis. 4. Chronic kidney disease mineral bone disorder, maintained on Rocaltrol. 5. Anemia of chronic disease. 6. Hypertension, currently maintained on Cardura, Coreg, hydralazine, Cozaar and isordil. 7. Volume overload, currently improved. 8. Moderate mitral regurgitation and moderate aortic stenosis. 9. Elevated troponin, not consistent with acute coronary syndrome. 10.History of prostatic cancer. PLAN: Repeat chest x-ray today. Switch to oral diuretics tomorrow. Proceed with further education for renal replacement therapy as outpatient and possible initiation of dialysis in the next few months. This will be done as outpatient. Patient is encouraged to increase his oral protein intake. MMODL / IJN: [id number] /
--- NOTE | 2020-01-13 17:33 | XR ---
EXAMINATION TYPE: XR chest 1V DATE OF EXAM: 01/13/2020 COMPARISON: Yesterday HISTORY: Short of breath TECHNIQUE: FINDINGS: There is no heart failure nor confluent pneumonic infiltrate. Thoracic aorta is atheromatou s. There are chest leads. IMPRESSION: No active cardiopulmonary disease. There is clearing of the pulmonary vascular congestion compared to yesterday.
[2020-01-13] MEDS: ATORVASTATIN 10 MG TAB PO SCH (21:14)
[2020-01-14] MEDS: HEPARIN SODIUM,PORCINE 5,000 UNIT/ML 1 ML VIAL SQ SCH ×2 (02:40→08:37)
[2020-01-14 07:04] LABS: HCT 26.3 % (39.0-53.0); HGB 8.8 gm/dL (13.0-17.5); Hypochromasia Slight; MCH 29.1 pg (25.0-35.0); MCHC 33.4 g/dL (31.0-37.0); MCV 87.1 fL (80.0-100.0); Mean Platelet Volume 8.4; Platelet Count 197 k/uL (150-450); RBC 3.02 m/uL (4.30-5.90); RDW 14.4 % (11.5-15.5)
[2020-01-14 07:38] LABS: Calcium 10.9 mg/dL (8.4-10.2); Magnesium 2.3 mg/dL (1.6-2.3); Phosphorus 4.1 mg/dL (2.5-4.5); Potassium 3.6 mmol/L (3.5-5.1)
[2020-01-14 07:43] LABS: Ionized Calcium 6.1 mg/dL (4.5-5.3)
[2020-01-14] MEDS: TAFAMIDIS MEGLUMINE PO SCH (08:34)
[2020-01-14] MEDS: Abiraterone Acetate [Zytiga] PO SCH (08:36)
[2020-01-14] MEDS: CHOLECALCIFEROL 1,000 UNIT TAB PO SCH (08:37)
[2020-01-14] MEDS: MULTIVITAMINS, THERA 1 EACH TAB PO SCH (08:37)
[2020-01-14] MEDS: DOXAZOSIN 4 MG TAB PO SCH (08:37)
[2020-01-14] MEDS: predniSONE 5 MG TAB PO SCH (08:37)
[2020-01-14] MEDS: ISOSORBIDE DINITRATE 10 MG TAB PO SCH (08:37)
[2020-01-14] MEDS: hydrALAZINE HCL 50 MG TAB PO SCH (08:37)
[2020-01-14] MEDS ORDERED: TORSEMIDE 20 MG TAB PO SCH (09:00)
[2020-01-14] MEDS ORDERED: FUROSEMIDE 10 MG/ML 4 ML VIAL IV SCH (09:00)
--- NOTE | 2020-01-14 12:35 | P.DS ---
Providers Date of admission: 01/11/20 20:08 Expected date of discharge: 01/14/20 Attending physician: Roque Duval MD Consults: 01/11/20 20:07 Consult Physician Routine Consulting Provider: Benjamin Collazo Consult Reason/Comments: cp Do you want consulting provider notified?: Yes 01/12/20 10:55 Consult Physician Routine Consulting Provider: Ann Camacho Consult Reason/Comments: elevated BUN and CR Do you want consulting provider notified?: Already Contacted Primary care physician: Adilson Lehman Hospital Course: Discharge Diagnosis: Acute exacerbation of congestive heart failure, diastolic with prior systolic dysfunction secondary to amyloidosis EF 55% Acute kidney injury on chronic kidney disease stage IV Hypercalcemia with use of calcitriol Iron deficiency anemia P. A fib HLD Prostate cancer Hospital Course: Patient is 79-year-old male with a history of nonischemic cardiomyopathy with systolic congestive heart failure (patient follows at [facility] and was told that it was secondary to amyloidosis, reports that he previously had a negative cardiac catheterization), severe mitral regurgitation, hypertension, hyperlipidemia, and CKD IV who presented initially to [facility] due to secondary to worsening dyspnea over the last 1 month. There is EKG revealed sinus bradycardia rate of 56 with PACs. Laboratory analysis showed an elevated troponin 0.106, BNP 24,600, hemoglobin 8.7, BUN 50, and creatinine of 3.7. He was transferred here for cardiology evaluation. On arrival the patient was hypertensive with a blood pressure of 189/104 that maxed at 206/99. He was found to have acute exacerbation of systolic CHF and was started on IV Lasix, he was admitted for further care. His troponin here remained flat. He was seen by cardio and underwent echo which showed ejection fraction 50-55%, moderate concentric LVH, and severely dilated left atrium. He was found have severe pulmonary hypertension along with moderate to severe aortic valve sclerosis with moderate aortic stenosis. He has also seen by nephrology who diagnosed him with CONCHIS on top of chronic kidney disease and serum creatinine was 3.4 at baseline. They state that he is near the point of needing HD. The agreed with keeping him on his losartan and off his calcitrol due to hyperkalemia. HIs fluid overload improved and his breathing was back to baseline. He was determined stable for discharge. He will follow up with Dr. Lehman in 1-[address] Camacho in 1-2 weeks. His home diuretic was not changed and he will monitor for signs of fluid overload to see if this needs to be increased. Patient seen and examined at bedside. Feeling well. Shortness of breath is back to baseline. No chest pain. He understands that he is nearing the need for peritoneal dialysis. He also would like to follow up with cardiology that is closer to home [facility] for intermittent visits. He states that his lower extremity edema has resolved. He has no other complaints currently. Vital signs reviewed and stable. General: non toxic, no distress, appears at stated age Derm: multiple facial scars, warm, dry Head: atraumatic, normocephalic, symmetric Eyes: EOMI, no lid lag, anicteric sclera Mouth: no lip lesion, mucus membranes moist Cardiovascular: S1S2 reg, no murmur, positive posterior tibial pulse bilateral, Lungs: CTA bilateral, no rhonchi, no rales , no accessory muscle use Abdominal: soft, nontender to palpation, no guarding, no appreciable organomegaly Ext: no gross muscle atrophy, no edema, no contractures Neuro: CN II-XI grossly intact, no focal neuro deficits Psych: Alert, oriented, appropriate affect A total of 35 minutes of time were spent preparing this complex discharge summary . Patient Condition at Discharge: Stable Plan - Discharge Summary Discharge Rx Participant: No New Discharge Prescriptions: Continue Multivitamins, Thera [Multivitamin (formulary)] 1 tab PO DAILY Abiraterone Acetate [Zytiga] 1,000 mg PO DAILY predniSONE 5 mg PO DAILY Losartan Potassium 100 mg PO DAILY Cholecalciferol [Vitamin D3 (25 Mcg = 1000 Iu)] 1,000 units PO DAILY Simvastatin [Zocor] 20 mg PO HS Doxazosin [Cardura] 4 mg PO DAILY Carvedilol [Coreg*] 12.5 mg PO DAILY Torsemide [Demadex] 20 mg PO DAILY #30 tablet Isosorbide Dinitrate [Isordil] 10 mg PO TID #90 tab Tafamidis Meglumine [Vyndaqel] 80 mg PO QID hydrALAZINE HCL [Apresoline] 50 mg PO BID Discontinued Calcitriol 0.5 mcg PO DAILY Discharge Medication List Abiraterone Acetate [Zytiga] 1,000 mg PO DAILY 01/20/19 [History] Cholecalciferol [Vitamin D3 (25 Mcg = 1000 Iu)] 1,000 units PO DAILY 01/20/19 [History] Losartan Potassium 100 mg PO DAILY 01/20/19 [History] Multivitamins, Thera [Multivitamin (formulary)] 1 tab PO DAILY 01/20/19 [History] predniSONE 5 mg PO DAILY 01/20/19 [History] Carvedilol [Coreg*] 12.5 mg PO DAILY 11/29/19 [History] Doxazosin [Cardura] 4 mg PO DAILY 11/29/19 [History] Simvastatin [Zocor] 20 mg PO HS 11/29/19 [History] Isosorbide Dinitrate [Isordil] 10 mg PO TID #90 tab 12/01/19 [Rx] Torsemide [Demadex] 20 mg PO DAILY #30 tablet 12/01/19 [Rx] Tafamidis Meglumine [Vyndaqel] 80 mg PO QID 01/11/20 [History] hydrALAZINE HCL [Apresoline] 50 mg PO BID 01/11/20 [History] Follow up Appointment(s)/Referral(s): Adilson Lehman MD [Primary Care Provider] - 1-2 days Ann Camacho MD [STAFF PHYSICIAN] - 1 Week Activity/Diet/Wound Care/Special Instructions: Activity: as tolerated Diet: low sodium, 1.5 L fluid restriction Special Instructions: Please follow with maternal fetal physician in 1-2 weeks Discharge Disposition: HOME SELF-CARE Care Plan Goals (MU):
--- NOTE | 2020-01-14 13:27 | P.PN ---
Subjective Progress Note Date: 01/14/20 This is an 79-year-old gentleman with past medical history significant for nonischemic cardio myopathy, amyloidosis, severe mitral regurgitation, hypertension, hyperlipidemia, prostate cancer, chronic kidney disease, presented to the emergency room as a transfer from [place] with symptoms of shortness of breath. According to the patient, the symptoms have been progressively worsening over the past few weeks. Positive orthopnea, significant bilateral peripheral edema. Evaluation of the workup at [facility] was reviewed, EKG showed sinus bradycardia with a heart rate in the 50s, PACs. Troponin 0.106, BNP 24,600, white blood cell count 6.2, hemoglobin 8.7, platelet 167, sodium 138, potassium 3.4, chloride 106, CO2 23, BUN 50, creatinine 3.7, glucose 98. Chest x-ray showed mild cardiomegaly, no gross heart failure, minimal pulmonary fibrotic changes. Blood pressure here 148/70 with a heart rate in the 50s, 96% on 2 L of oxygen. Blood cell count here 6.3, hemoglobin 9.2, platelet count 162. Sodium 138, potassium 3.5, BUN 48, creatinine 3.4. Troponin 0.1, 0.1. Vitamin B12 thousand and 69, folate greater than 24, albumin 3.3, total protein 5.9. Ferritin 362.2, total bilirubin 0.9, TIBC 273, percent saturation 6.9, iron 19. Patient was initiated on IV Lasix, overall he states that he feels his breathing is improved today as compared with yesterday. He diuresed 1400 to the night. 01/13/2020 Patient seen and examined this morning, diuresing well overall, his weight today is down 2 kg. Blood pressure 96/50 with a heart rate in the 50s. Sodium 140, potassium 4.0, BUN 57, creatinine 3.7. Echocardiogram with Doppler study revealed an ejection fraction of 50-55%. LA is severely dilated, moderate MR, moderate TR, severe pulmonary hypertension. Because of the patient's renal function we will discontinue the Cozaar 100 mg today. 01/14/2020 Patient seen and examined this morning, hemodynamically stable. Breathing is improving. Blood pressure 140/60 with a heart rate of 50, 99% on 2 L of oxygen. White blood cell count 8.0, hemoglobin 8.8, platelet count 197. Sodium 138, potassium 3.6, BUN 73 and creatinine 3.7. Objective - Vital Signs Vital signs: Vital Signs Temp 97.7 F 01/14/20 08:00 Pulse 51 L 01/14/20 08:00 Resp 17 01/14/20 08:00 BP 141/62 01/14/20 08:00 Pulse Ox 99 01/14/20 08:00 Intake & Output 01/13/20 01/14/20 01/14/20 18:59 06:59 18:59 Intake Total 720 236 Balance 720 236 Weight 75.7 kg Intake: Oral 720 236 Other: Voiding Method Toilet Toilet Urinal # Voids 1 1 - Exam PHYSICAL EXAMINATION: GENERAL: 79-year-old gentleman in no acute distress at the time of my examination HEENT: Head is atraumatic, normocephalic. Pupils equal, round. Sclera anicteri c. Conjunctiva are clear. Mucous membranes of the mouth are moist. Neck is supple. There is no elevated jugular venous pressure. No carotid bruit is heard. HEART EXAMINATION: Heart S1 and S2 systolic murmur is heard CHEST EXAMINATION: Lungs clear with fine rales to the bases . ABDOMEN: Soft, nontender. Bowel sounds are heard. No organomegaly noted. EXTREMITIES: 2+ peripheral pulses with no evidence of peripheral edema and no calf tenderness noted. NEUROLOGIC patient is awake, alert and oriented 3 . - Labs CBC & Chem 7: 01/14/20 06:33 01/14/20 06:33 Labs: Abnormal Lab Results - Last 24 Hours (Table) 01/14/20 01/14/20 Range/Units 06:33 06:33 RBC 3.02 L (4.30-5.90) m/uL Hgb 8.8 L (13.0-17.5) gm/dL Hct 26.3 L (39.0-53.0) % BUN 73 H (9-20) mg/dL Creatinine 3.78 H (0.66-1.25) mg/dL Calcium 10.9 H (8.4-10.2) mg/dL Ionized Calcium Paty 6.1 H* (4.5-5.3) mg/dL Assessment and Plan Plan: Assessment and plan #1 diastolic congestive heart failure acute on chronic #2 moderate mitral regurgitation, moderate aortic stenosis #3 troponin abnormality, likely secondary to abnormal renal function, not consistent with acute coronary syndrome. #4 normocytic anemia #5 hypertension #6 hyperlipidemia #7 prostate cancer #8 acute on chronic kidney disease #9 amyloidosis Plan IV Lasix has been discontinued and patient has been changed over to oral Demadex. He will be discharged home today. Patient does follow with cardiology at the [facility] every 6 months which she has been directed to do. DNP note has been reviewed, I agree with a documented findings and plan of care. Patient was seen and examined.
--- NOTE | 2020-01-14 14:30 | PN ---
PROGRESS NOTE Patient is seen for followup for acute kidney injury on top of chronic kidney disease. He was admitted to the hospital with shortness of breath and fluid overload. He has been diuresed. Overall, he is feeling better. Chest x-ray is improved. His serum creatinine is staying at 3.7, which is up from previous reading of 3.4. Overall, patient states that he is feeling better. No nausea, vomiting, abdominal pain or diarrhea. PHYSICAL EXAMINATION: Blood pressure is 141/62, heart rate 51 per minute, patient is afebrile. Examination of the heart S1, S2. Examination of the lungs, bilateral breath sounds are heard. Abdomen is soft, nontender. Examination of the lower extremities shows no significant edema. MANAGER TRADE exam grossly intact. LABS: Show sodium 138, potassium 3.6, chloride 104, CO2 is 25, BUN 73, creatinine 2.78, hemoglobin 8.8 g/dL. ASSESSMENT: 1. Acute kidney injury mainly cardiorenal, renal function is stable last couple of days, slightly worse than baseline. However, no indication to start renal replacement therapy at this point. 2. Congestive heart failure exacerbation, acute on top of chronic, mainly diastolic, currently clinically improved. 3. Volume overload, now improved. 4. Chronic kidney disease stage 4 secondary to nephrosclerosis with proteinuria noted and history of amyloidosis being managed at [facility]. Patient did not receive any chemotherapy. 5. CKD mineral bone disorder maintained on Rocaltrol. 6. History of prostatic cancer. 7. Moderate mitral regurgitation and moderate aortic stenosis. PLAN: Patient is stable for discharge from nephrology standpoint. Continue with current dose of oral torsemide. Follow up in the office within 1 weeks' time. Patient will be pursuing education for renal replacement therapy as outpatient. MMODL / IJN: [id number] /
[2020-01-15 08:20] VITALS: BP 141/62; PULSE 51; RESP 17; TEMP 97.7
== END 2020-01-14 14:59 | disposition home or self-care (01) | DRG 291 ==
LOC: EC 19:31 → 3SCARD 20:08
PROVIDERS: ADMIT Internal Medicine; ATTEND Internal Medicine
DX: I13.0 Hypertensive heart and chronic kidney disease with heart failure and stage 1 through stage 4 chronic kidney disease, or unspecified chronic kidney disease (principal); I50.43 Acute on chronic combined systolic (congestive) and diastolic (congestive) heart failure; E85.9 Amyloidosis, unspecified; C79.9 Secondary malignant neoplasm of unspecified site; N17.9 Acute kidney failure, unspecified; N18.4 Chronic kidney disease, stage 4 (severe); I16.0 Hypertensive urgency; I08.0 Rheumatic disorders of both mitral and aortic valves; I27.20 Pulmonary hypertension, unspecified; C61 Malignant neoplasm of prostate; D50.9 Iron deficiency anemia, unspecified; D63.8 Anemia in other chronic diseases classified elsewhere; E78.00 Pure hypercholesterolemia, unspecified; E78.5 Hyperlipidemia, unspecified; E83.52 Hypercalcemia; T45.2X5A Adverse effect of vitamins, initial encounter; Z11.59 Encounter for screening for other viral diseases; I42.8 Other cardiomyopathies; I48.91 Unspecified atrial fibrillation; I49.1 Atrial premature depolarization; M89.9 Disorder of bone, unspecified; Z79.899 Other long term (current) drug therapy; Z80.42 Family history of malignant neoplasm of prostate; Z85.51 Personal history of malignant neoplasm of bladder; Z85.828 Personal history of other malignant neoplasm of skin; Z87.891 Personal history of nicotine dependence; Z90.49 Acquired absence of other specified parts of digestive tract; Z96.641 Presence of right artificial hip joint; Z82.0 Family history of epilepsy and other diseases of the nervous system; Z79.52 Long term (current) use of systemic steroids; R79.89 Other specified abnormal findings of blood chemistry; M15.9 Polyosteoarthritis, unspecified; K59.00 Constipation, unspecified; Z86.19 Personal history of other infectious and parasitic diseases
CPT/HCPCS: 71045; 80048; 80053; 82330; 82607; 82728; 82746; 83540; 83550; 83735; 84100; 84484; 85025; 85027; 93306; 96374; 99285

== ENCOUNTER 2020-04-17 11:22 | Inpatient (IN) | payer MEDICARE ==
--- NOTE | 2020-04-17 11:38 | ED ---
SOB HPI - General Chief Complaint: Shortness of Breath Stated Complaint: Cough/CHF Time Seen by Provider: 04/17/20 11:22 Source: patient, RN/MD, EMS, RN notes reviewed Mode of arrival: EMS Limitations: no limitations - History of Present Illness Initial Comments: This is a 79-year-old male presented to [facility] today with complaints of one days of cough with clear phlegm some shortness of breath he had no fevers chills or sweats does have a history of CHF apparently. His workup indicate that he was suffering from congestive heart failure and worsening of his renal function today. He was transferred here for further evaluation and treatment. He did have aCovid 19 test which was negative. Additionally is currently under treatment for prostate cancer. He was noted have a low-grade temperature upon arrival here. MD Complaint: shortness of breath, cough - Related Data Home Medications Medication Instructions Recorded Confirmed Abiraterone Acetate [Zytiga] 1,000 mg PO DAILY 01/20/19 03/23/20 Cholecalciferol [Vitamin D3 (25 1,000 units PO DAILY 01/20/19 03/23/20 Mcg = 1000 Iu)] Losartan Potassium 100 mg PO DAILY 01/20/19 03/23/20 Multivitamins, Thera [Multivitamin 1 tab PO DAILY 01/20/19 03/23/20 (formulary)] predniSONE 5 mg PO DAILY 01/20/19 03/23/20 Doxazosin [Cardura] 4 mg PO DAILY 11/29/19 03/23/20 Simvastatin [Zocor] 20 mg PO HS 11/29/19 03/23/20 carvediloL [Coreg*] 12.5 mg PO DAILY 11/29/19 03/23/20 Tafamidis Meglumine [Vyndaqel] 80 mg PO QID 01/11/20 03/23/20 hydrALAZINE HCL [Apresoline] 50 mg PO BID 01/11/20 03/23/20 Previous Rx's Medication Instructions Recorded Isosorbide Dinitrate [Isordil] 10 mg PO TID #90 tab 12/01/19 Torsemide [Demadex] 20 mg PO DAILY #30 tablet 12/01/19 Allergies Allergy/AdvReac Type Severity Reaction Status Date / Time No Known Allergies Allergy Verified 03/23/20 10:27 Review of Systems ROS Statement: Those systems with pertinent positive or pertinent negative responses have been documented in the HPI. ROS Other: All systems not noted in ROS Statement are negative. Past Medical History Past Medical History: Atrial Fibrillation, Cancer, Heart Failure, Hyperlipidemia, Hypertension, Osteoarthritis (OA), Renal Disease Additional Past Medical History / Comment(s): Prostate cancer with surgery and hormone based oral chemotherapy, bladder cancer with surgery/instillations, skin cancer with removals, leaky heart valve, CKD stage IV, arthritis in multiple joints, constipation, C-Diff in 06/18/18. History of Any Multi-Drug Resistant Organisms: None Reported Past Surgical History: Appendectomy, Cholecystectomy, Prostate Surgery Additional Past Surgical History / Comment(s): Total R hip 3 weeks ago, cysto w ith bladder tumor resections, prostatectomy, skin cancer removals-mostly basal cell, colonoscopy Past Anesthesia/Blood Transfusion Reactions: No Reported Reaction Additional Past Anesthesia/Blood Transfusion Reaction / Comment(s): Never had a blood transfusion. Past Psychological History: No Psychological Hx Reported Smoking Status: Former smoker Past Alcohol Use History: Occasional Past Drug Use History: None Reported - Past Family History Mother Family Medical History: Dementia Father Family Medical History: Cancer Additional Family Medical History / Comment(s): Prostate cancer. General Exam - General Exam Comments Initial Comments: This is a well-developed asthenic appearing male who is awake alert oriented 3 Limitations: no limitations General appearance: alert, anxious Head exam: Present: atraumatic, normocephalic, normal inspection Eye exam: Present: normal appearance, PERRL, EOMI. Absent: scleral icterus, conjunctival injection, periorbital swelling ENT exam: Present: normal exam, mucous membranes moist Neck exam: Present: normal inspection, full ROM, other (Stridor JVD or bruits). Absent: tenderness, meningismus, lymphadenopathy Respiratory exam: Present: wheezes, rhonchi, decreased breath sounds, other (Diminished breath sounds with scattered wheezes and rhonchi especially on the right side.). Absent: respiratory distress, rales, stridor Cardiovascular Exam: Present: regular rate, normal rhythm, normal heart sounds. Absent: systolic murmur, diastolic murmur, rubs, gallop, clicks GI/Abdominal exam: Present: soft, normal bowel sounds. Absent: distended, tenderness, guarding, rebound, rigid Extremities exam: Present: normal inspection, full ROM, normal capillary refill. Absent: tenderness, pedal edema, joint swelling, calf tenderness Back exam: Present: normal inspection Neurological exam: Present: alert, oriented X3, CN II-XII intact Psychiatric exam: Present: normal affect, normal mood Skin exam: Present: warm, dry, intact, normal color. Absent: rash Course Vital Signs 04/17/20 04/17/20 04/17/20 11:23 11:37 12:27 Temperature 99.7 F H Pulse Rate 89 75 Respiratory 18 18 22 Rate Blood Pressure 180/80 184/89 O2 Sat by Pulse 95 96 Oximetry 04/17/20 13:00 Temperature Pulse Rate 69 Respiratory 22 Rate Blood Pressure 170/86 O2 Sat by Pulse 94 L Oximetry Medical Decision Making - Medical Decision Making Patient will be admitted at discuss case with Dr. Narayanan who did come the emergency department - Lab Data Result diagrams: 04/17/20 11:40 04/17/20 11:40 Lab Results 04/17/20 04/17/20 04/17/20 Range/Units 11:40 11:40 11:40 WBC 7.0 (3.8-10.6) k/uL RBC 3.37 L (4.30-5.90) m/uL Hgb 9.8 L (13.0-17.5) gm/dL Hct 29.3 L (39.0-53.0) % MCV 87.1 (80.0-100.0) fL MCH 29.0 (25.0-35.0) pg MCHC 33.2 (31.0-37.0) g/dL RDW 16.0 H (11.5-15.5) % Plt Count 149 L (150-450) k/uL Neutrophils % 79 % Lymphocytes % 9 % Monocytes % 6 % Eosinophils % 3 % Basophils % 2 % Neutrophils # 5.5 (1.3-7.7) k/uL Lymphocytes # 0.6 L (1.0-4.8) k/uL Monocytes # 0.4 (0-1.0) k/uL Eosinophils # 0.2 (0-0.7) k/uL Basophils # 0.1 (0-0.2) k/uL PT 10.6 (9.0-12.0) sec INR 1.0 (<1.2) APTT 26.1 (22.0-30.0) sec Sodium 138 (137-145) mmol/L Potassium 3.9 (3.5-5.1) mmol/L Chloride 107 (98-107) mmol/L Carbon Dioxide 23 (22-30) mmol/L Anion Gap 8 mmol/L BUN 62 H (9-20) mg/dL Creatinine 3.67 H (0.66-1.25) mg/dL Est GFR (CKD-EPI)AfAm 17 (>60 ml/min/1.73 sqM) Est GFR (CKD-EPI)NonAf 15 (>60 ml/min/1.73 sqM) Glucose 93 (74-99) mg/dL Plasma Lactic Acid Jalil (0.7-2.0) mmol/L Calcium 10.3 H (8.4-10.2) mg/dL Magnesium 2.3 (1.6-2.3) mg/dL Total Bilirubin 0.7 (0.2-1.3) mg/dL AST 20 (17-59) U/L ALT 11 (4-49) U/L Alkaline Phosphatase 82 (38-126) U/L Troponin I (0.000-0.034) ng/mL NT-Pro-B Natriuret Pep pg/mL Total Protein 6.4 (6.3-8.2) g/dL Albumin 3.6 (3.5-5.0) g/dL 04/17/20 04/17/20 04/17/20 Range/Units 11:40 11:40 11:40 WBC (3.8-10.6) k/uL RBC (4.30-5.90) m/uL Hgb (13.0-17.5) gm/dL Hct (39.0-53.0) % MCV (80.0-100.0) fL MCH (25.0-35.0) pg MCHC (31.0-37.0) g/dL RDW (11.5-15.5) % Plt Count (150-450) k/uL Neutrophils % % Lymphocytes % % Monocytes % % Eosinophils % % Basophils % % Neutrophils # (1.3-7.7) k/uL Lymphocytes # (1.0-4.8) k/uL Monocytes # (0-1.0) k/uL Eosinophils # (0-0.7) k/uL Basophils # (0-0.2) k/uL PT (9.0-12.0) sec INR (<1.2) APTT (22.0-30.0) sec Sodium (137-145) mmol/L Potassium (3.5-5.1) mmol/L Chloride (98-107) mmol/L Carbon Dioxide (22-30) mmol/L Anion Gap mmol/L BUN (9-20) mg/dL Creatinine (0.66-1.25) mg/dL Est GFR (CKD-EPI)AfAm (>60 ml/min/1.73 sqM) Est GFR (CKD-EPI)NonAf (>60 ml/min/1.73 sqM) Glucose (74-99) mg/dL Plasma Lactic Acid Jalil 0.8 (0.7-2.0) mmol/L Calcium (8.4-10.2) mg/dL Magnesium (1.6-2.3) mg/dL Total Bilirubin (0.2-1.3) mg/dL AST (17-59) U/L ALT (4-49) U/L Alkaline Phosphatase (38-126) U/L Troponin I 0.103 H* (0.000-0.034) ng/mL NT-Pro-B Natriuret Pep 72049 pg/mL Total Protein (6.3-8.2) g/dL Albumin (3.5-5.0) g/dL - Radiology Data Radiology results: report reviewed (Imaging reviewed no definite acute findings.), image reviewed Disposition Clinical Impression: CHF (congestive heart failure), Acute kidney injury Disposition: ADMITTED IP TO THIS [facility] Condition: Fair Referrals: Benjamin Ferrera MD [Primary Care Provider] - 1-2 days
[2020-04-17 11:56] LABS: Basophils # (A) 0.1 k/uL (0-0.2); Basophils % (A) 2 %; Eosinophils # (A) 0.2 k/uL (0-0.7); Eosinophils % (A) 3 %; HCT 29.3 % (39.0-53.0); HGB 9.8 gm/dL (13.0-17.5); Lymphocytes # (A) 0.6 k/uL (1.0-4.8); Lymphocytes % (A) 9 %; MCHC 33.2 g/dL (31.0-37.0); MCV 87.1 fL (80.0-100.0); Mean Platelet Volume 8.2; Monocytes # (A) 0.4 k/uL (0-1.0); Monocytes % (A) 6 %; Neutrophils # (A) 5.5 k/uL (1.3-7.7); Neutrophils % (A) 79 %; Platelet Count 149 k/uL (150-450); RBC 3.37 m/uL (4.30-5.90)
[2020-04-17 12:07] LABS: Albumin 3.6 g/dL (3.5-5.0); Calcium 10.3 mg/dL (8.4-10.2); Magnesium 2.3 mg/dL (1.6-2.3); Partial Thromboplastin Time 26.1 sec (22.0-30.0); Potassium 3.9 mmol/L (3.5-5.1); Prothrombin Time 10.6 sec (9.0-12.0); Total Bilirubin 0.7 mg/dL (0.2-1.3); Total Protein 6.4 g/dL (6.3-8.2)
--- NOTE | 2020-04-17 12:09 | XR ---
EXAMINATION TYPE: XR chest 2V DATE OF EXAM: 04/17/2020 COMPARISON: NONE HISTORY: Cough and shortness of breath. TECHNIQUE: Frontal and lateral views of the chest are obtained. FINDINGS: There is no focal air space opacity, pleural effusion, or pneumothorax seen. Cardiomegaly is noted. Otherwise normal mediastinal silhouette. The osseous structures are intact. IMPRESSION: No acute cardiopulmonary process.
[2020-04-17] MEDS ORDERED: LOSARTAN 50 MG TAB PO STA (12:29)
[2020-04-17] MEDS ORDERED: hydrALAZINE HCL 50 MG TAB PO STA (12:29)
[2020-04-17] MEDS ORDERED: ALBUTEROL NEBULIZED 2.5 MG/3 ML INHALATION PRN (14:32)
[2020-04-17] MEDS ORDERED: NALOXONE 0.4 MG/ML 1 ML VIAL IV PRN (14:32)
[2020-04-17] MEDS ORDERED: bisacodyL 5 MG TABLET.DR PO PRN (14:32)
[2020-04-17] MEDS ORDERED: ONDANSETRON 4 MG/2 ML VIAL IVP PRN (14:32)
[2020-04-17] MEDS ORDERED: BENZOCAINE/MENTHOL LOZENG 1 EACH LOZENGE MUCOUS MEM PRN (14:32)
[2020-04-17] MEDS ORDERED: MELATONIN 3 MG TABLET PO PRN (14:32)
[2020-04-17] MEDS ORDERED: ACETAMINOPHEN TAB 325 MG TAB PO PRN (14:32)
[2020-04-17] MEDS: ABIRATERONE ACETATE 500 MG PO SCH (15:00)
[2020-04-17] MEDS: TAFAMIDIS MEGLUMINE 20 MG PO SCH ×2 (15:00→20:56)
[2020-04-17] MEDS: IPRATROPIUM-ALBUTEROL 3 ML NEB INHALATION SCH ×2 (15:24→19:38)
[2020-04-17] MEDS ORDERED: methylPREDNISolone SOD SUCCI 125 MG/2 ML VIAL IV STA (15:31)
--- NOTE | 2020-04-17 15:35 | P.HPIM ---
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 Robert, chronic kidney disease stage IV with baseline creatinine 3 .4 following with nephrology, A. fib not on chronic anticoagulation, and prostate cancer currently on therapy with zytiga and prednisone who initially presented to [facility] with shortness of breath. There he underwent an extensive evaluation. His initial chest x-ray was negative. CBC and basic metabolic profile were at baseline. BNP mildly elevated at 14,100, INR 1.07, ferritin 462. He underwent an upper respiratory viral panel was positive for rhinovirus, negative first hours: He 2, influenza A and B-, and pro-calcitonin mildly elevated at 0.24. He was subsequently transferred here for cardiology and pulmonary evaluation. Chest x-ray here showed no acute process. Repeat laboratory analysis so troponin 0.103 consistent with his chronic troponin elevateion his BUN was 62 and creatinine 3.67 with baseline creatinine of 3.4. In the emergency department he was actively wheezing. Patient seen and examined at bedside in the emergency department. He states that yesterday had sudden onset shortness of breath. It is worse with exertion and better with rest. He has been having chronic hip and knee pain and is following with Dr. Nevarez. He states he has been laying down more often recently. He states that this morning he started coughing up clear sputum. His shortness of breath is worse with exertion and better with rest. He denies any chest pain rated no lightheadedness, or dizziness. He reports some post nasal drip. He denies any edema. No chest pain. He denies any fevers. He has been wearing a mask around public and denies any COVID known exposures. He is overall feeling weak and tired due to his difficulty breathing. He denies any strokelike symptoms. He reports that he had vomiting one time this morning after a coughing fit. Of note he reports that he was painting signs in his garage yesterday with the patient's prior and then became short of breath shortly after this. He reports that he's been taking all his medications appropriately, he has not missed any doses of medications. He last saw Dr. Robert proximately 3-4 weeks ago. Andrez rain last saw his primary care physician approximately 2 weeks ago. He has not had any recent change in medication from [facility]. He did have a coughing fit and then vomited was present in the emergency department. Review of Systems Pertinent positives and negatives as discussed in HPI, a complete review of systems was performed and all other systems are negative. Past Medical History Past Medical History: Atrial Fibrillation, Cancer, Heart Failure, Hyperlipidemia, Hypertension, Osteoarthritis (OA), Renal Disease Additional Past Medical History / Comment(s): Prostate cancer with surgery and hormone based oral chemotherapy, bladder cancer with surgery/instillations, skin cancer with removals, leaky heart valve, CKD stage IV, arthritis in multiple joints, constipation, C-Diff in 06/18/18. History of Any Multi-Drug Resistant Organisms: None Reported Past Surgical History: Appendectomy, Cholecystectomy, Prostate Surgery Additional Past Surgical History / Comment(s): Total R hip last summer, cysto with bladder tumor resections, prostatectomy, skin cancer removals-mostly basal cell, colonoscopy Past Anesthesia/Blood Transfusion Reactions: No Reported Reaction Additional Past Anesthesia/Blood Transfusion Reaction / Comment(s): Never had a blood transfusion. Past Psychological History: No Psychological Hx Reported Smoking Status: Former smoker Past Alcohol Use History: Occasional Past Drug Use History: None Reported Additional History: No assitive devices, no oxygen. Lives with - Past Family History Mother Family Medical History: Dementia Father Family Medical History: Cancer Additional Family Medical History / Comment(s): Prostate cancer. Medications and Allergies Home Medications Medication Instructions Recorded Confirmed Type Abiraterone Acetate [Zytiga] 1,000 mg PO DAILY 01/20/19 04/17/20 History Cholecalciferol [Vitamin D3 (25 1,000 units PO DAILY 01/20/19 04/17/20 History Mcg = 1000 Iu)] Losartan Potassium 100 mg PO DAILY 01/20/19 04/17/20 History Multivitamins, Thera [Multivitamin 1 tab PO DAILY 01/20/19 04/17/20 History (formulary)] predniSONE 5 mg PO DAILY 01/20/19 04/17/20 History Doxazosin [Cardura] 4 mg PO DAILY 11/29/19 04/17/20 History Simvastatin [Zocor] 20 mg PO HS 11/29/19 04/17/20 History carvediloL [Coreg*] 12.5 mg PO DAILY 11/29/19 04/17/20 History Isosorbide Dinitrate [Isordil] 10 mg PO TID #90 tab 12/01/19 04/17/20 Rx Torsemide [Demadex] 20 mg PO DAILY #30 tablet 12/01/19 04/17/20 Rx Tafamidis Meglumine [Vyndaqel] 20 mg PO QID 01/11/20 04/17/20 History hydrALAZINE HCL [Apresoline] 50 mg PO BID 01/11/20 04/17/20 History Mucinex (Unknown Strength) 1 tab PO DAILY 04/17/20 04/17/20 History Allergies Allergy/AdvReac Type Severity Reaction Status Date / Time No Known Allergies Allergy Verified 04/17/20 14:18 Physical Exam Osteopathic Statement: *. No significant issues noted on an osteopathic structural exam other than those noted in the History and Physical/Consult. Vitals: Vital Signs Temp Pulse Resp BP Pulse Ox 04/17/20 13:00 69 22 170/86 94 L 04/17/20 12:27 75 22 184/89 96 04/17/20 11:37 18 04/17/20 11:23 99.7 F H 89 18 180/80 95 Intake and Output 04/16/20 04/17/20 04/17/20 22:59 06:59 14:59 Other: Weight 79.379 kg General: Ill appearing, mild distress, appears older than stated age Derm: Mass before meals with multiple areas of excoriation, warm, dry Head: atraumatic, normocephalic, symmetric Eyes: EOMI, no lid lag, anicteric sclera, pupils equal round reactive to light ENT: Nose and ears atraumatic, no thrush, + pharyngeal erythema, + post nasal drip Neck: No thyromegaly, no cervical lymphadenopathy, trachea midline, supple Mouth: no lip lesion, mucus membranes dry Cardiovascular: S1-S2 with grade 3 systolic ejection murmur, positive posterior tibial pulse bilateral, no edema, capillary refill less than 2 seconds Lungs: Wheezing and rhonchi bilaterally left greater than right, + accessory muscle use, + 3 word conversational dyspnea Abdominal: soft, nontender to palpation, no guarding, no appreciable organomegaly, normal bowel sounds Ext: no gross muscle atrophy, muscle strength muscle strength 4 out of 5 in all 4 extremities, no contractures Neuro: CN II-XI grossly intact, light touch intact all 4 extremities, finger to nose within normal limits, Psych: Alert, oriented, appropriate affect Results CBC & Chem 7: 04/17/20 11:40 04/17/20 11:40 Labs: Abnormal Lab Results - Last 24 Hours (Table) 04/17/20 04/17/20 04/17/20 Range/Units 11:40 11:40 11:40 RBC 3.37 L (4.30-5.90) m/uL Hgb 9.8 L (13.0-17.5) gm/dL Hct 29.3 L (39.0-53.0) % RDW 16.0 H (11.5-15.5) % Plt Count 149 L (150-450) k/uL Lymphocytes # 0.6 L (1.0-4.8) k/uL BUN 62 H (9-20) mg/dL Creatinine 3.67 H (0.66-1.25) mg/dL Calcium 10.3 H (8.4-10.2) mg/dL Troponin I 0.103 H* (0.000-0.034) ng/mL Chest x-ray: report reviewed, image reviewed Thrombosis Risk Factor Assmnt - DVT/VTE Prophylaxis DVT/VTE Prophylaxis: Pharmacologic Prophylaxis ordered Assessment and Plan Assessment: Reactive airway due to accident chemical inhalation with acute respiratory failure (as indicated by respiratory rate) - Steroids - Bronchodilators - Mucinex - Resp Vrral panel with rhino virus, COVID and FLU negative - repeat CXR in AM - If no improvement in breathing consult pulmonary - claritin Chronic diastolic CHF with cardiac amyloidosis -Strict I's and O's, daily weights -Continue home Demadex, Coreg, and losartan -continue with home Tafamidis -COnsult cardio if symptoms develop consitent with CHF Chronically elevated troponin - repeat in 3 hour - ASA - tele CKD IV - Cr near baseline - repeat CR in AM - avoid nephrotoxic agents Hypertension, accelerated on arrival - Resume Coreg, losartan, hydralazine, Imdur - follow BP Hypercalcemia - suspect due to known prostate malignancy Prostate cancer - continue with Zytigia and chronically on prednisone Anemia of chronic kidney disease - at baseline - follow CBC The patient is admitted with an anticipated greater than 2 midnight stay for evaluation of []. Surrogate decision-maker: CODE STATUS:Has advanced directive becerra not want resuscitation, may be okay with elective intubation if cause reversible DVT prophylaxis: heparin Discussed with: patient, nursing Anticipated discharge date: in 2-[address]: home A total of 75minutes was spent on the care of this complex patient more than 50% of the time was spent in counseling and care coordination.
[2020-04-17] MEDS: methylPREDNISolone SOD SUCCI 125 MG/2 ML VIAL IV SCH ×2 (16:11→23:01)
[2020-04-17] MEDS: ISOSORBIDE DINITRATE 10 MG TAB PO SCH ×2 (16:13→21:04)
[2020-04-17] MEDS: guaiFENesin 600 MG TABLET.ER PO SCH ×2 (16:13→21:04)
[2020-04-17] MEDS: LORATADINE 10 MG TAB PO SCH (16:13)
[2020-04-17] MEDS: ENOXAPARIN 30 MG/0.3 ML SYRINGE SQ SCH (16:13)
[2020-04-17] MEDS: hydrALAZINE HCL 50 MG TAB PO SCH (21:03)
[2020-04-17] MEDS: ATORVASTATIN 10 MG TAB PO SCH (21:04)
[2020-04-17 21:34] LABS: Glucose,Whole Blood 180 mg/dL (75-99)
[2020-04-17] MEDS: INSULIN ASPART (NovoLOG) 100 UNIT/ML VIAL SQ SCH (22:17)
[2020-04-18 06:27] LABS: Glucose,Whole Blood 157 mg/dL (75-99)
[2020-04-18] MEDS: methylPREDNISolone SOD SUCCI 125 MG/2 ML VIAL IV SCH ×4 (06:35→23:35)
[2020-04-18] MEDS: INSULIN ASPART (NovoLOG) 100 UNIT/ML VIAL SQ SCH ×4 (06:35→20:30)
[2020-04-18 06:57] LABS: HGB 10.2 gm/dL (13.0-17.5); MCH 28.9 pg (25.0-35.0); MCHC 32.9 g/dL (31.0-37.0); MCV 87.7 fL (80.0-100.0); Platelet Count 156 k/uL (150-450); RBC 3.54 m/uL (4.30-5.90); RDW 15.9 % (11.5-15.5); WBC 7.8 k/uL (3.8-10.6)
[2020-04-18 07:06] LABS: Calcium 10.2 mg/dL (8.4-10.2); Magnesium 2.2 mg/dL (1.6-2.3); Phosphorus 5.3 mg/dL (2.5-4.5); Potassium 3.7 mmol/L (3.5-5.1)
[2020-04-18] MEDS: IPRATROPIUM-ALBUTEROL 3 ML NEB INHALATION SCH ×4 (08:06→19:56)
[2020-04-18] MEDS: ENOXAPARIN 30 MG/0.3 ML SYRINGE SQ SCH (08:10)
[2020-04-18] MEDS: MULTIVITAMINS, THERA 1 EACH TAB PO SCH (08:11)
[2020-04-18] MEDS: carvediloL 12.5 MG TAB PO SCH (08:11)
[2020-04-18] MEDS: hydrALAZINE HCL 50 MG TAB PO SCH ×2 (08:11→20:29)
[2020-04-18] MEDS: LOSARTAN 50 MG TAB PO SCH (08:11)
[2020-04-18] MEDS: DOXAZOSIN 4 MG TAB PO SCH (08:11)
[2020-04-18] MEDS: guaiFENesin 600 MG TABLET.ER PO SCH ×2 (08:11→20:29)
[2020-04-18] MEDS: LORATADINE 10 MG TAB PO SCH (08:11)
[2020-04-18] MEDS: ISOSORBIDE DINITRATE 10 MG TAB PO SCH ×3 (08:12→20:30)
[2020-04-18] MEDS: CHOLECALCIFEROL 1,000 UNIT TAB PO SCH (08:12)
[2020-04-18] MEDS: TORSEMIDE 20 MG TAB PO SCH (08:12)
[2020-04-18] MEDS ORDERED: MUCINEX PO SCH (09:00)
[2020-04-18 10:10] VITALS: TEMP 97.8
--- NOTE | 2020-04-18 11:25 | P.PN ---
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 Robert, chronic kidney disease stage IV with baseline creatinine 3.4 following with nephrology, A. fib not on chronic anticoagulation, and prostate cancer currently on therapy with zytiga and prednisone who initially presented to [facility] with shortness of breath. There he underwent an extensive evaluation. His initial chest x-ray was negative. CBC and basic metabolic profile were at baseline. BNP mildly elevated at 14,100, INR 1.07, ferritin 462. He underwent an upper respiratory viral panel was positive for rhinovirus, negative for COVID, influenza A and B. His pro-calcitonin was mildly elevated at 0.24. He was subsequently transferred here for cardiology and pulmonary evaluation. Chest x-ray here showed no acute process. Repeat laboratory analysis demonstrated a troponin 0.103 consistent with his chronic troponin elevateion. His BUN was 62 and creatinine 3.67 with baseline creatinine of 3.4. In the emergency department he was actively wheezing. He did not appear to clinically be in CHF despite BNP elevation. It came to light that his shortness of breath and wheezing started after spray painting signs in an enclosed space. He was started on steroids and bronchodilators with rapid improvement in his breathing. Patient seen and examined at bedside. His breathing is much better than ye sterday. He is still feeling a little short of breath. Cough is improved and is no longer productive. He deneis chest pain or lower extremity edema. General: non toxic, no distress, appears at stated age Derm: warm, dry Head: atraumatic, normocephalic, symmetric, masked facies Eyes: EOMI, no lid lag, anicteric sclera Mouth: no lip lesion, mucus membranes moist Cardiovascular: S1S2 reg, no murmur, positive posterior tibial pulse bilateral, Lungs: wheeze with ronchi bilateral , no accessory muscle use, no conversational dyspnea Abdominal: soft, nontender to palpation, no guarding, no appreciable organomegaly Ext: no gross muscle atrophy, no edema, no contractures Neuro: CN II-XI grossly intact, no focal neuro deficits Psych: Alert, oriented, appropriate affect 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 - Mucinex - Resp Vrral panel with rhino virus, COVID and FLU negative - claritin Chronic diastolic CHF with cardiac amyloidosis -Strict I's and O's, daily weights -Continue home Demadex, Coreg, and losartan -continue with home Tafamidis -Consult cardio if symptoms develop consitent with CHF Chronically elevated troponin - no further eval indicated at this time. CKD IV - Cr near baseline - repeat CR in AM - avoid nephrotoxic agents - outpatient nephro follow-up Hypertension, accelerated on arrival - Coreg, losartan, hydralazine, Imdur - follow BP Hypercalcemia - suspect due to known prostate malignancy Prostate cancer - continue with Zytigia and chronically on prednisone Anemia of chronic kidney disease - at baseline - follow CBC Acute respiratory failure, resolved. DVT prophylaxis: lovenox Discussed with: patient, nursing Anticipated discharge date: in 2-[address]: home A total of 35 minutes was spent on the care of this complex patient more than 50% of the time was spent in counseling and care coordination.
[2020-04-18] MEDS: ABIRATERONE ACETATE 500 MG PO SCH (12:32)
[2020-04-18] MEDS: TAFAMIDIS MEGLUMINE 20 MG PO SCH ×4 (12:32→20:31)
[2020-04-18 12:38] LABS: Glucose,Whole Blood 179 mg/dL (75-99)
[2020-04-18 14:16] VITALS: BMI 22.7
[2020-04-18 17:00] LABS: Glucose,Whole Blood 200 mg/dL (75-99)
[2020-04-18 20:22] LABS: Glucose,Whole Blood 190 mg/dL (75-99)
[2020-04-18] MEDS: ATORVASTATIN 10 MG TAB PO SCH (20:29)
[2020-04-18 23:05] VITALS: RESP 17
[2020-04-19 06:07] VITALS: BP 150/86
[2020-04-19 06:17] LABS: Glucose,Whole Blood 168 mg/dL (75-99)
[2020-04-19] MEDS: INSULIN ASPART (NovoLOG) 100 UNIT/ML VIAL SQ SCH (06:34)
[2020-04-19] MEDS: methylPREDNISolone SOD SUCCI 125 MG/2 ML VIAL IV SCH (06:34)
[2020-04-19] MEDS: IPRATROPIUM-ALBUTEROL 3 ML NEB INHALATION SCH ×2 (07:10→11:00)
[2020-04-19 07:20] VITALS: PULSE 68
[2020-04-19 07:58] LABS: Anisocytosis Slight; HCT 30.7 % (39.0-53.0); HGB 9.6 gm/dL (13.0-17.5); MCH 28.2 pg (25.0-35.0); MCHC 31.4 g/dL (31.0-37.0); MCV 89.6 fL (80.0-100.0); Mean Platelet Volume 8.7; Platelet Count 154 k/uL (150-450); RBC 3.42 m/uL (4.30-5.90); RDW 16.2 % (11.5-15.5)
[2020-04-19 08:12] LABS: Calcium 9.7 mg/dL (8.4-10.2); Potassium 3.8 mmol/L (3.5-5.1)
[2020-04-19] MEDS ORDERED: FUROSEMIDE 10 MG/ML 2 ML VIAL IV ONE (08:19)
[2020-04-19] MEDS: hydrALAZINE HCL 50 MG TAB PO SCH (08:47)
[2020-04-19] MEDS: guaiFENesin 600 MG TABLET.ER PO SCH (08:47)
[2020-04-19] MEDS: CHOLECALCIFEROL 1,000 UNIT TAB PO SCH (08:47)
[2020-04-19] MEDS: LORATADINE 10 MG TAB PO SCH (08:47)
[2020-04-19] MEDS: DOXAZOSIN 4 MG TAB PO SCH (08:47)
[2020-04-19] MEDS: LOSARTAN 50 MG TAB PO SCH (08:47)
[2020-04-19] MEDS: MULTIVITAMINS, THERA 1 EACH TAB PO SCH (08:47)
[2020-04-19] MEDS: carvediloL 12.5 MG TAB PO SCH (08:47)
[2020-04-19] MEDS: ENOXAPARIN 30 MG/0.3 ML SYRINGE SQ SCH (08:48)
[2020-04-19] MEDS: ISOSORBIDE DINITRATE 10 MG TAB PO SCH (08:55)
[2020-04-19] MEDS: TORSEMIDE 20 MG TAB PO SCH (08:55)
[2020-04-19] MEDS: TAFAMIDIS MEGLUMINE 20 MG PO SCH (09:04)
[2020-04-19] MEDS: ABIRATERONE ACETATE 500 MG PO SCH (09:04)
[2020-04-19 11:43] LABS: Glucose,Whole Blood 148 mg/dL (75-99)
--- NOTE | 2020-04-20 14:30 | CDI ---
Documentation Clarification Form Date: 04/20/20 From: Brandy Coreas Phone: If you have a question about this query, please contact Misty Gracia, Scrip Clerk at [phone] between 8am and 5pm. Admit Date: 04/17/20 Discharge Date:04/19/20 Patient Name: Brian Delgado Visit Number: [id number] ATTENTION: The Clinical Documentation Specialists (CDI) and [facility] Coding Staff appreciate your assistance in clarifying documentation. Please respond to the clarification below the line at the bottom and electronically sign. The CDI & [facility] Coding staff will review the response and follow-up if needed. Please note: Queries are made part of the Legal Health Record. If you have any questions, please contact the author of this message via ITS. Dear Dr. Beyer The patient presented with the following respiratory symptoms: shortness of breath, cough History/Risk Factors: Chemical pneumonitis from inhaling paint fumes, Chronic systolic CHF, caridac amyloidosis, cardiomyopathy Tobacco use: Former smoker Home oxygen: None Clinical Indicators: Shortness of breath, cough, anxious, positive for accessory muscle use, conversational dyspnea Vital signs: T. 99.7, P. 89, R. 18 then up to 22 1 hours later, BP 180/80 Pulse oximetry: 95 on admission on room air, 94 % on 2 liters of O2 per nasal cannula 2 hours later Lung/Breathing assessment: Wheezing and rhonchi bilaterally left greater than right, positive accessory muscle use, 3 word conversational dyspnea Treatment: Breathing tx: Duoneb inhalation therapy Continuous Pulse ox O2: 2 liters per nasal cannula In your professional opinion, can you please further clarify the following? Acute Respiratory Failure Other Diagnosis, please specify Unable to determine Specificity: If known, further specify (if known): With hypercapnia? (pCO2 >50 and pH <7.35) With hypoxia? (pO2 <60 mm Hg or SpO2 <91% on room air) no hypoxia or hypercapnia, failure due to Respiratory rate MTDD
--- NOTE | 2020-04-21 07:15 | P.DS ---
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 Robert, chronic kidney disease stage IV with baseline creatinine 3.4 following with nephrology, A. fib not on chronic anticoagulation, and prostate cancer currently on therapy with zytiga and prednisone who initially presented to [facility] with shortness of breath. There he underwent an extensive evaluation. His initial chest x-ray was negative. CBC and basic metabolic profile were at baseline. BNP mildly elevated at 14,100, INR 1.07, ferritin 462. He underwent an upper respiratory viral panel was positive for rhinovirus, negative for COVID, influenza A and B. His pro-calcitonin was mildly elevated at 0.24. He was subsequently transferred here for cardiology and pulmonary evaluation. Chest x-ray here showed no acute process. Repeat laboratory analysis demonstrated a troponin 0.103 consistent with his chronic troponin elevateion. His BUN was 62 and creatinine 3.67 with baseline creatinine of 3.4. In the emergency department he was actively wheezing. He did not appear to clinically be in CHF despite BNP elevation. It came to light that his shortness of breath and wheezing started after spray painting signs in an enclosed space. He was started on steroids and bronchodilators with rapid improvement in his breathing. He continued to due well and improve. His WBC did elevate due to IV steroids, he remained afebrile and symptoms improved. He will discharge home on Prednisone 40 mg daily for 3 more days and then resume his chronic 5 mg daily. He will take albuterol 4 times daily while awake for the next 3 days and will then use as needed. He will follow with Dr. Ferrera next week. Patient seen and examined at bedside. Breathing is much better, cough has almost resolved. No nausea, no vomiting, no diarreha. Vital signs reviewed and stable. General: non toxic, no distress, appears at stated age Derm: warm, dry Head: atraumatic, normocephalic, symmetric Eyes: EOMI, no lid lag, anicteric sclera Mouth: no lip lesion, mucus membranes moist Cardiovascular: S1S2 reg, no murmur, positive posterior tibial pulse bilateral, Lungs: faint wheeze left base , no accessory muscle use Abdominal: soft, nontender to palpation, no guarding, no appreciable organomegaly Ext: no gross muscle atrophy, 1+ edema, no contractures Neuro: CN II-XI grossly intact, no focal neuro deficits Psych: Alert, oriented, appropriate affect A total of 35 minutes of time were spent preparing this complex discharge summary . Patient Condition at Discharge: Fair Plan - Discharge Summary Discharge Rx Participant: No New Discharge Prescriptions: New Albuterol Sulfate [Albuterol Sulfate Hfa] 2 puff PO Q6H #1 inhaler predniSONE [Deltasone] 40 mg PO DAILY #3 tab guaiFENesin [Mucinex] 1,200 mg PO Q12HR PRN tablet.er Continue Multivitamins, Thera [Multivitamin (formulary)] 1 tab PO DAILY Abiraterone Acetate [Zytiga] 1,000 mg PO DAILY predniSONE 5 mg PO DAILY Losartan Potassium 100 mg PO DAILY Cholecalciferol [Vitamin D3 (25 Mcg = 1000 Iu)] 1,000 units PO DAILY Simvastatin [Zocor] 20 mg PO HS Doxazosin [Cardura] 4 mg PO DAILY carvediloL [Coreg*] 12.5 mg PO DAILY Torsemide [Demadex] 20 mg PO DAILY #30 tablet Isosorbide Dinitrate [Isordil] 10 mg PO TID #90 tab Tafamidis Meglumine [Vyndaqel] 20 mg PO QID hydrALAZINE HCL [Apresoline] 50 mg PO BID Discontinued Mucinex (Unknown Strength) 1 tab PO DAILY Discharge Medication List Abiraterone Acetate [Zytiga] 1,000 mg PO DAILY 01/20/19 [History] Cholecalciferol [Vitamin D3 (25 Mcg = 1000 Iu)] 1,000 units PO DAILY 01/20/19 [History] Losartan Potassium 100 mg PO DAILY 01/20/19 [History] Multivitamins, Thera [Multivitamin (formulary)] 1 tab PO DAILY 01/20/19 [History] predniSONE 5 mg PO DAILY 07/16/19 [History] Doxazosin [Cardura] 4 mg PO DAILY 11/29/19 [History] Simvastatin [Zocor] 20 mg PO HS 11/29/19 [History] carvediloL [Coreg*] 12.5 mg PO DAILY 11/29/19 [History] Isosorbide Dinitrate [Isordil] 10 mg PO TID #90 tab 12/01/19 [Rx] Torsemide [Demadex] 20 mg PO DAILY #30 tablet 12/01/19 [Rx] Tafamidis Meglumine [Vyndaqel] 20 mg PO QID 01/11/20 [History] hydrALAZINE HCL [Apresoline] 50 mg PO BID 01/11/20 [History] Albuterol Sulfate [Albuterol Sulfate Hfa] 2 puff PO Q6H #1 inhaler 04/19/20 [Rx] guaiFENesin [Mucinex] 1,200 mg PO Q12HR PRN tablet.er 04/19/20 [Rx] predniSONE [Deltasone] 40 mg PO DAILY #3 tab 04/19/20 [Rx] Follow up Appointment(s)/Referral(s): Benjamin Ferrera MD [Primary Care Provider] - 1-2 days Patient Instructions/Handouts: Acute Respiratory Failure (GEN) Activity/Diet/Wound Care/Special Instructions: Activity: as tolerated Diet: heart healthy Special Instructions: Prednisone 40 mg daily for the next 3 days and then resume your 5 mg daily Albuterol 2 puffs 4 times daily when awake for the next 3 days and then as needed Discharge Disposition: HOME SELF-CARE
== END 2020-04-19 11:40 | disposition home or self-care (01) | DRG 917 ==
LOC: EC 11:22 → 3SCARD 13:38
PROVIDERS: ADMIT Internal Medicine; ATTEND Internal Medicine
DX: T59.891A Toxic effect of other specified gases, fumes and vapors, accidental (unintentional), initial encounter (principal); J96.00 Acute respiratory failure, unspecified whether with hypoxia or hypercapnia; J68.0 Bronchitis and pneumonitis due to chemicals, gases, fumes and vapors; E85.4 Organ-limited amyloidosis; I43 Cardiomyopathy in diseases classified elsewhere; I13.0 Hypertensive heart and chronic kidney disease with heart failure and stage 1 through stage 4 chronic kidney disease, or unspecified chronic kidney disease; I50.32 Chronic diastolic (congestive) heart failure; N17.9 Acute kidney failure, unspecified; N18.4 Chronic kidney disease, stage 4 (severe); D63.1 Anemia in chronic kidney disease; C61 Malignant neoplasm of prostate; I48.91 Unspecified atrial fibrillation; E78.5 Hyperlipidemia, unspecified; E83.52 Hypercalcemia; M15.9 Polyosteoarthritis, unspecified; G89.29 Other chronic pain; R79.89 Other specified abnormal findings of blood chemistry; Z79.52 Long term (current) use of systemic steroids; Z79.899 Other long term (current) drug therapy; Z85.51 Personal history of malignant neoplasm of bladder; Z85.828 Personal history of other malignant neoplasm of skin; Z87.891 Personal history of nicotine dependence; Z87.19 Personal history of other diseases of the digestive system; Z90.49 Acquired absence of other specified parts of digestive tract; Z98.890 Other specified postprocedural states; Z90.79 Acquired absence of other genital organ(s); Z96.641 Presence of right artificial hip joint; Z86.19 Personal history of other infectious and parasitic diseases; Z80.42 Family history of malignant neoplasm of prostate; Z82.0 Family history of epilepsy and other diseases of the nervous system
CPT/HCPCS: 36415; 71046; 80048; 80053; 83605; 83735; 83880; 84100; 84484; 85025; 85027; 85610; 85730; 87040; 93005; 94640; 94760; 99285